=== PATIENT | male | born 1980 | race Caucasian/White ===

== ENCOUNTER 2017-04-23 00:46 | Emergency (ER) | payer SELFPAY ==
[~2017-04-23] VITALS: Ht 157.5 cm; Wt 100.0 kg
[2017-04-23 00:40] VITALS: O2SAT 100
[2017-04-23 00:48] VITALS: BP 156/97; PULSE 114; RESP 18; TEMP 98.7; O2SAT 100
[2017-04-23] MEDS ORDERED: methylPREDNISolone SOD SUCC 125 MG/2 ML VIAL ONE (00:51)
[2017-04-23] MEDS ORDERED: SODIUM CHLORIDE 0.9% FLUSH 10 ML FLUSH IV FLUSH PRN (01:00)
[2017-04-23] MEDS ORDERED: methylPREDNISolone SOD SUCC 125 MG/2 ML VIAL IM ONE (01:00)
[2017-04-23] MEDS ORDERED: ZOLO100T PO (01:00)
[2017-04-23] MEDS ORDERED: FAMOTIDINE 20 MG/2 ML VIAL IV PUSH ONE (01:00)
[2017-04-23] MEDS ORDERED: KETOROLAC TROMETHAMINE 30 MG/ML (IVP) VIAL IV PUSH ONE (01:15)
--- NOTE | 2017-04-23 02:19 | PD ---
HPI Chief Complaint: Allergic/Adverse Reaction Time Seen by Provider: 00:54 Travel History International Travel<30 days: No Contact w/Intl Traveler<30days: No Traveled to known affect area: No History of Present Illness HPI 37-year-old male complains of scratchy throat, shortness of breath, pain and swelling of the extremity. Patient was eating dinner and ate some shellfish and shrimp. Patient started having swelling of extremity, painful extremity, scratchy throat and shortness of breath. Patient took Benadryl 50 mg by mouth. EMS was called. Patient was given Benadryl 50 mg IV, epinephrine 0.3 mg subcutaneous, albuterol treatment 2 and Zofran 4 mg IV. Patient was transported to the ED for evaluation. PFSH Past Medical History Depression: Yes Schizophrenia: Yes (SCHIZO AFFECTIVE) Tetanus Vaccination: < 5 Years Influenza Vaccination: No Past Surgical History Surgical History: No Previous Surgery Social History Alcohol Use: Yes Tobacco Use: Yes Substance Use: No Allergies-Medications (Allergen,Severity, Reaction): Coded Allergies: Bee Sting (Verified Allergy, Severe, 04/23/17) Penicillin (Verified Allergy, Intermediate, 04/23/17) Reported Meds & Prescriptions Reported Meds & Active Scripts Active Reported Zoloft (Sertraline HCl) 100 Mg Tab 100 Mg PO DAILY Review of Systems General / Constitutional: No: Fever Eyes: No: Visual changes HENT: No: Headaches Cardiovascular: No: Chest Pain or Discomfort Respiratory: Positive: Shortness of Breath Gastrointestinal: No: Abdominal Pain Genitourinary: No: Dysuria Musculoskeletal: Positive: Edema, Pain Skin: No Rash Neurologic: No: Weakness Psychiatric: No: Depression Endocrine: No: Polydipsia Hematologic/Lymphatic: No: Easy Bruising Physical Exam Narrative GENERAL: Well-nourished, well-developed patient. SKIN: Focused skin assessment warm/dry. Mild reddish rash on the extremity and upper chest. HEAD: Normocephalic. EYES: No scleral icterus. No injection or drainage. Patient has mild edema on the uvula and soft palate area. NECK: Supple, trachea midline. No JVD or lymphadenopathy. CARDIOVASCULAR: Regular rate and rhythm without murmurs, gallops, or rubs. RESPIRATORY: Breath sounds equal bilaterally. No accessory muscle use. No stridor or wheezes. GASTROINTESTINAL: Abdomen soft, non-tender, nondistended. MUSCULOSKELETAL: Mild edema on bilateral hands. BACK: Nontender without obvious deformity. No CVA tenderness. Neurologic exam normal. Data Data Last Documented VS Vital Signs Date Time Temp Pulse Resp B/P Pulse Ox O2 Delivery O2 Flow Rate FiO2 04/23/17 00:54 112 25 100 Nasal Cannula 2 04/23/17 00:48 98.7 156/97 Orders Methylprednisolone So Succ Inj (Solumedr (04/23/17 00:51) Ecg Monitoring (04/23/17 00:54) Iv Access Insert/Monitor (04/23/17 00:54) Oximetry (04/23/17 00:54) Methylprednisolone So Succ Inj (Solumedr (04/23/17 01:00) Famotidine Inj (Pepcid Inj) (04/23/17 01:00) Sodium Chloride 0.9% Flush (Ns Flush) (04/23/17 01:00) Ketorolac Inj (Toradol Inj) (04/23/17 01:15) MDM Medical Decision Making Medical Screen Exam Complete: Yes Emergency Medical Condition: Yes Differential Diagnosis Differential diagnosis including allergic reaction, anaphylactoid reaction. Narrative Course 37-year-old male with reddish rash, throat edema, shortness of breath, swelling extremity after eating seafood. Patient received Benadryl, epinephrine, albuterol treatment prior to arrival. Solu-Medrol 125 mg IV given. Pepcid 20 mg IV given. Patient observed in ED with cardiac monitoring and pulse oximetry. 3:09 AM. No edema or the throat. No stridor or wheezing. Patient still has some mild swelling of the hands. Diagnosis Primary Impression: Anaphylactoid reaction Qualified Code: T78.2XXA - Anaphylactoid reaction, initial encounter Patient Instructions: General Instructions Additional Instructions: Take medications as directed. Follow-up with personal physician. Return immediately if shortness of breath or worsening condition. Med/Other Pt SpecificInfo: Prescription(s) given Scripts Ranitidine (Zantac)300 Mg Tha834 Mg PO DAILY #10 TAB Ref 0 Prov:Tyler Bledsoe MD 04/23/17 Cetirizine HCl (Zyrtec)10 Mg Tablet1 Tab PO DAILY #10 Prov:Tyler Bledsoe MD 04/23/17 Prednisone 20 Mg Tab20 Mg PO BID #10 TAB Prov:Tyler Bledsoe MD 04/23/17 Disposition: 01 DISCHARGE HOME Condition: Stable Tyler Bledsoe MD Apr 23, 2017 02:19
[2017-04-23] MEDS ORDERED: CETI-1 PO (03:10)
[2017-04-23] MEDS ORDERED: ZANT300T PO (03:10)
[2017-04-23] MEDS ORDERED: PRED20 PO (03:10)
[2017-04-23 05:26] VITALS: BP 127/76; PULSE 97; RESP 18; O2SAT 100; O2SAT 98
[2017-04-23] MEDS ORDERED: SODIUM CHLOR 0.9% 1000 ML INJ 1,000 ML IV SCH (06:00)
[2017-04-23] MEDS ORDERED: ONDANSETRON HCL 4 MG/2 ML VIAL IV PUSH ONE (06:15)
[2017-04-23] MEDS ORDERED: MORPHINE SULFATE 4 MG/ML INJ IV PUSH ONE (06:15)
--- NOTE | 2017-04-23 06:27 | RADRPT ---
EXAM DATE/TIME: 04/23/2017 06:08 [facility] COMPARISON: No previous studies available for comparison. INDICATIONS : Short of breath, possible allergic reaction. MEDICAL HISTORY : None. SURGICAL HISTORY : None. ENCOUNTER: Initial ACUITY: 1 day PAIN SCORE: 0/10 LOCATION: Bilateral chest FINDINGS: A single view of the chest demonstrates the lungs to be symmetrically aerated without evidence of mas s, infiltrate or effusion. The cardiomediastinal contours are unremarkable. Osseous structures are intact. CONCLUSION: No acute disease. Ryan Valdes MD on April 23, 2017 at 6:26 Board Certified Radiologist. This report was verified electronically.
[2017-04-23 06:32] LABS: AUTOMATED NEUTROPHIL # 8.9 TH/MM3 (1.8-7.7); BASOPHIL # 0.1 TH/MM3 (0-0.2); BASOPHIL % 0.9 % (0.0-2.0); EOSINOPHIL % 0.2 % (0.0-4.0); HEMATOCRIT 35.5 % (39.0-51.0); HEMO FLAGS DIFF FINAL; LYMPH % 19.8 % (9.0-44.0); LYMPHOCYTE # 2.8 TH/MM3 (1.0-4.8); MEAN CELL VOLUME 86.8 FL (80.0-100.0); MEAN CORPUSCULAR HEMOGLOBIN 29.9 PG (27.0-34.0); MEAN CORPUSCULAR HGB CONC 34.5 % (32.0-36.0); MONO % 15.2 % (0.0-8.0); NEUT % 63.9 % (16.0-70.0); PLATELET COUNT 267 TH/MM3 (150-450); RED BLOOD COUNT 4.09 MIL/MM3 (4.50-5.90); RED CELL DISTRIBUTION WIDTH 14.1 % (11.6-17.2); WHITE BLOOD COUNT 13.9 TH/MM3 (4.0-11.0)
[2017-04-23 06:57] LABS: ALT (GPT) 30 U/L (12-78); ANION GAP 14 MEQ/L (5-15); AST (GOT) 26 U/L (15-37); BICARBONATE 20.9 MEQ/L (21.0-32.0); BLOOD UREA NITROGEN 9 MG/DL (7-18); CHLORIDE 104 MEQ/L (98-107); GLOMERULAR FILTRATION RATE 94 ML/MIN (>89); POTASSIUM 4.1 MEQ/L (3.5-5.1); SODIUM (NA) 139 MEQ/L (136-145)
[2017-04-23 06:59] LABS: ALKALINE PHOSPHATASE 73 U/L (45-117); CREATINE KINASE 408 U/L (39-308); TOTAL BILIRUBIN ADULT 0.7 MG/DL (0.2-1.0)
[2017-04-23 07:00] VITALS: BP 117/71; PULSE 90; RESP 18; O2SAT 98
[2017-04-23] MEDS ORDERED: LORazepam 2 MG/ML VIAL IV PUSH ONE (07:00)
[2017-04-23 07:02] LABS: APTT (PATIENT) 29.7 SEC (24.3-30.1); PROTHROMBIN TIME - PATIENT 10.5 SEC (9.8-11.6)
[2017-04-23 07:19] LABS: CKMB 4.9 NG/ML (0.5-3.6)
[2017-04-23] MEDS ORDERED: EPIP0.3I IM ×2 (09:35→09:54)
--- NOTE | 2017-04-23 09:35 | PD ---
Data Data Last Documented VS Vital Signs Date Time Temp Pulse Resp B/P Pulse Ox O2 Delivery O2 Flow Rate FiO2 04/23/17 07:05 18 04/23/17 05:26 97 127/76 98 Room Air 04/23/17 00:54 2 04/23/17 00:48 98.7 Orders Methylprednisolone So Succ Inj (Solumedr (04/23/17 00:51) Ecg Monitoring (04/23/17 00:54) Iv Access Insert/Monitor (04/23/17 00:54) Oximetry (04/23/17 00:54) Methylprednisolone So Succ Inj (Solumedr (04/23/17 01:00) Famotidine Inj (Pepcid Inj) (04/23/17 01:00) Sodium Chloride 0.9% Flush (Ns Flush) (04/23/17 01:00) Ketorolac Inj (Toradol Inj) (04/23/17 01:15) Complete Blood Count With Diff (04/23/17 05:49) Comprehensive Metabolic Panel (04/23/17 05:49) Creatine Kinase (Cpk) (04/23/17 05:49) Prothrombin Time / Inr (Pt) (04/23/17 05:49) Act Partial Throm Time (Ptt) (04/23/17 05:49) Chest, Single Ap (04/23/17 05:49) Sodium Chlor 0.9% 1000 Ml Inj (Ns 1000 M (04/23/17 06:00) Morphine Inj (Morphine Inj) (04/23/17 06:15) Ondansetron Inj (Zofran Inj) (04/23/17 06:15) Lorazepam Inj (Ativan Inj) (04/23/17 07:00) CKMB (04/23/17 06:05) CKMB% (04/23/17 06:05) Labs Laboratory Tests Test 04/23/17 06:05 White Blood Count 13.9 TH/MM3 Red Blood Count 4.09 MIL/MM3 Hemoglobin 12.2 GM/DL Hematocrit 35.5 % Mean Corpuscular Volume 86.8 FL Mean Corpuscular Hemoglobin 29.9 PG Mean Corpuscular Hemoglobin 34.5 % Concent Red Cell Distribution Width 14.1 % Platelet Count 267 TH/MM3 Mean Platelet Volume 7.8 FL Neutrophils (%) (Auto) 63.9 % Lymphocytes (%) (Auto) 19.8 % Monocytes (%) (Auto) 15.2 % Eosinophils (%) (Auto) 0.2 % Basophils (%) (Auto) 0.9 % Neutrophils # (Auto) 8.9 TH/MM3 Lymphocytes # (Auto) 2.8 TH/MM3 Monocytes # (Auto) 2.1 TH/MM3 Eosinophils # (Auto) 0.0 TH/MM3 Basophils # (Auto) 0.1 TH/MM3 CBC Comment DIFF FINAL Differential Comment Prothrombin Time 10.5 SEC Prothromb Time International 1.0 RATIO Ratio Activated Partial 29.7 SEC Thromboplast Time Sodium Level 139 MEQ/L Potassium Level 4.1 MEQ/L Chloride Level 104 MEQ/L Carbon Dioxide Level 20.9 MEQ/L Anion Gap 14 MEQ/L Blood Urea Nitrogen 9 MG/DL Creatinine 0.90 MG/DL Estimat Glomerular Filtration 94 ML/MIN Rate Random Glucose 57 MG/DL Calcium Level 8.4 MG/DL Total Bilirubin 0.7 MG/DL Aspartate Amino Transf 26 U/L (AST/SGOT) Alanine Aminotransferase 30 U/L (ALT/SGPT) Alkaline Phosphatase 73 U/L Total Creatine Kinase 408 U/L Creatine Kinase MB 4.9 NG/ML Creatine Kinase MB % 1.2 % Total Protein 6.5 GM/DL Albumin 3.5 GM/DL [facility] Supervised Visit with BRENT: Yes Interpretation(s) LABS: CBC remarkable for mild leukocytosis, mild anemia. CMP unremarkable Total CK 408 Chest x-ray negative Narrative Course 37-year-old male with apparent allergic reaction. He was observed for 9 hours in the evening. They're in a discharge earlier but he developed some tenderness and swelling in his hands and arms. It seemed to be related to hives or edema. He is continuing to be monitored and labs are drawn. He is now improving. We'll continue steroids, antihistamines, prescription for EpiPen , and outpatient follow-up. Will return for any worsening symptoms. Diagnosis Primary Impression: Anaphylactoid reaction Qualified Code: T78.2XXA - Anaphylactoid reaction, initial encounter Patient Instructions: General Instructions, General Allergic Reaction (ED) Departure Forms: Tests/Procedures Additional Instruction: Take medications as directed. Follow-up with personal physician. Return immediately if shortness of breath or worsening condition. Scripts Epinephrine Inj (Epipen 2-Rodrigo Inj)0.3 Mg/0.3 Ml Pfpen0.3 Mg IM ONCE PRN ( ALLERGIC REACTION) #1 PACK Ref 0 Prov:Tino Lainez MD 04/23/17 Ranitidine (Zantac)300 Mg Gxs051 Mg PO DAILY #10 TAB Ref 0 Prov:Tyler Bledsoe MD 04/23/17 Cetirizine HCl (Zyrtec)10 Mg Tablet1 Tab PO DAILY #10 Prov:Tyler Bledsoe MD 04/23/17 Prednisone 20 Mg Tab20 Mg PO BID #10 TAB Prov:Tyler Bledsoe MD 04/23/17 Disposition: 01 DISCHARGE HOME Condition: Stable Tino Lainez MD Apr 23, 2017 09:35
[2017-04-23 10:00] VITALS: BP 124/70; PULSE 87; RESP 18; O2SAT 99
== END 2017-04-23 10:34 | disposition home or self-care (01) ==
LOC: NEPC 00:46
DX: T78.02XA Anaphylactic reaction due to shellfish (crustaceans), initial encounter (principal)
CPT/HCPCS: 71010; 80053; 82550; 82552; 85025; 85610; 85730; 96361; 96374; 96375; 99284; J1885; J2060; J2270; J2405; J2930; J7030

== ENCOUNTER 2017-05-08 00:50 | Emergency (ER) | payer OTHER ==
[~2017-05-08] VITALS: Ht 180.3 cm; Wt 69.0 kg
[~2017-05-08 00:50] MED LIST: CETI-1 PO; EPIP0.3I IM; PRED20 PO; ZANT300T PO; ZOLO100T PO
[2017-05-08 00:53] VITALS: BP 136/76; PULSE 106; RESP 16; TEMP 98.6; O2SAT 98
[2017-05-08 01:24] VITALS: BP 138/74; PULSE 97; RESP 20; TEMP 98.2; O2SAT 100
[2017-05-08] MEDS ORDERED: IBUPROFEN 600 MG TAB PO ONE (01:30)
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
== END 2017-05-08 06:09 | disposition home or self-care (01) ==
LOC: NEPE 00:50
DX: S93.401A Sprain of unspecified ligament of right ankle, initial encounter (principal); V03.90XA Pedestrian on foot injured in collision with car, pick-up truck or van, unspecified whether traffic or nontraffic accident, initial encounter; Y92.414 Local residential or business street as the place of occurrence of the external cause; F17.290 Nicotine dependence, other tobacco product, uncomplicated; F10.10 Alcohol abuse, uncomplicated
CPT/HCPCS: 70450; 71010; 72125; 72170; 73564; 73610; 99285

== ENCOUNTER 2017-05-19 13:14 | Emergency (ER) | payer OTHER ==
[~2017-05-19] VITALS: Ht 188 cm; Wt 100.0 kg
[2017-05-19 14:17] VITALS: BP 125/68; PULSE 90; RESP 20; TEMP 98; O2SAT 99
[2017-05-19] MEDS ORDERED: TETANUS/DIPHTHERIA TOXOID ADULT 0.5 ML VIAL IM ONE (16:00)
[2017-05-19] MEDS ORDERED: LIDOCAINE HCL 1% 50 ML VIAL ONE (16:10)
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
[2017-05-19] MEDS ORDERED: LIDOCAINE HCL 1% 50 ML VIAL INFIL ONE (16:15)
--- NOTE | 2017-05-19 16:47 | PD ---
Physical Exam Date Seen by Provider: May 19, 2017 Time Seen by Provider: 16:40 Narrative I was asked by Dr. Hale 2 para laceration of the patient's right dorsal hand. Please see her documentation for full history and physical. Data Data Last Documented VS Vital Signs Date Time Temp Pulse Resp B/P (MAP) Pulse Ox O2 Delivery O2 Flow Rate FiO2 05/19/17 17:22 05/19/17 14:17 98.0 90 20 99 Room Air Orders Orders Tetanus/Diphtheria Tox Adult (Tetanus/Di (05/19/17 16:00) Lidocaine 1% Inj (50 Ml) (Xylocaine 1% I (05/19/17 16:15) Lidocaine 1% Inj (50 Ml) (Xylocaine 1% I (05/19/17 16:10) MDM Medical Record Reviewed: Yes Supervised Visit with BRENT: No Procedures Procedure Narrative LACERATION LOCATION: Right dorsal hand LENGTH: 6 cm NUMBER OF STITCHES/SCARLET: 6 simple interrupted sutures REPAIR: The area of the laceration was prepped with Betadine and sterilely draped. The laceration was infiltrated with 1% lidocaine. The wound was copiously irrigated and explored without evidence of foreign body, tendon injury or neurovascular injury. The wound was closed using 4-0 prolene. This was a single layer repair. A sterile dressing was applied. The patient was advised to keep the dressing clean and dry. Patient tolerated the procedure well. Diagnosis Primary Impression: Hand laceration Qualified Codes: S61.411A - Laceration without foreign body of right hand, initial encounter Patient Instructions: General Instructions Additional Instruction: If you develop fevers, redness, swelling, or discharge from your wound return to the emergency room. Keep your wound dry for 24 hours. After that time, wash gently with warm soap and water. Do not use peroxide. Do not soak in baths or go swimming. Have your sutures removed in 7 days. Disposition: 01 DISCHARGE HOME Condition: Stable Esme Nuñez May 19, 2017 16:46
== END 2017-05-19 17:23 | disposition home or self-care (01) ==
LOC: NEPD 13:14
DX: S61.411A Laceration without foreign body of right hand, initial encounter (principal); Z23 Encounter for immunization; Z86.59 Personal history of other mental and behavioral disorders; W45.8XXA Other foreign body or object entering through skin, initial encounter
CPT/HCPCS: 12002; 90471; 90714

== ENCOUNTER 2017-05-23 09:55 | Inpatient (IN) | payer OTHER ==
[~2017-05-23] VITALS: Ht 188 cm; Wt 95.1 kg
[2017-05-23 09:57] VITALS: BP 146/83; PULSE 97; RESP 12; TEMP 98.6; O2SAT 97
[2017-05-23] MEDS ORDERED: CLINDAMYCIN INJ 900 MG in SODIUM CHLORIDE 0.9% INJ 100 ML IV STA (10:39)
--- NOTE | 2017-05-23 10:43 | PD ---
HPI Chief Complaint: Skin Problem Time Seen by Provider: 10:39 Travel History International Travel<30 days: No Contact w/Intl Traveler<30days: No Traveled to known affect area: No History of Present Illness HPI 37-year-old male patient seen 2 days ago for a wound to the right hand which was sutured, presents back to the ER today for increased redness, swelling, drainage, and signs of infection. He states he has been having chills, having some coughing as well. He denies other issues. Modifying Factors: None Associated Signs & Symptoms: Right hand infection, chills, coughing Risk Factors: After recent suturing 2-3 days ago PFSH Past Medical History Hx Anticoagulant Therapy: No Depression: Yes Cardiovascular Problems: No Chemotherapy: No Cerebrovascular Accident: No Diabetes: No Respiratory: No Schizophrenia: Yes (SCHIZO AFFECTIVE) Past Surgical History Surgical History: No Previous Surgery Social History Alcohol Use: Yes (denies daily use states he drinks a couple times a week ) Tobacco Use: No (1/2 pack a day ) Substance Use: No Allergies-Medications (Allergen,Severity, Reaction): Coded Allergies: amoxicillin (Unverified Allergy, Severe, Anaphylaxis, 05/23/17) PT states he has an anaphylactic rx when taking amoxicillin. bee venom protein (honey bee) (Unverified Allergy, Severe, 05/23/17) penicillin G (Unverified Allergy, Intermediate, 05/23/17) Reported Meds & Prescriptions Reported Meds & Active Scripts Active Epipen 2-Rodrigo Inj (Epinephrine) 0.3 Mg/0.3 Ml Pfpen 0.3 Mg IM ONCE PRN Zantac (Ranitidine HCl) 300 Mg Tab 300 Mg PO DAILY Zyrtec (Cetirizine HCl) 10 Mg Tablet 1 Tab PO DAILY Prednisone 20 Mg Tab 20 Mg PO BID Reported Zoloft (Sertraline HCl) 100 Mg Tab 100 Mg PO DAILY Review of Systems Except as stated in HPI: all other systems reviewed are Neg Physical Exam Narrative GENERAL: Well-developed middle age white male patient currently in mild distress. Awake and oriented 3. SKIN: Focused skin assessment warm/dry. The right hand wound appears with sutures intact, surrounding erythema, small amount of pus like drainage, tender palpation. HEAD: Atraumatic. Normocephalic. EYES: Pupils equal and round. No scleral icterus. No injection or drainage. ENT: No nasal bleeding or discharge. Mucous membranes pink and moist. NECK: Trachea midline. No JVD. CARDIOVASCULAR: Regular rate and rhythm. No murmur appreciated. RESPIRATORY: No accessory muscle use. Clear to auscultation. Breath sounds equal bilaterally. GASTROINTESTINAL: Abdomen soft, non-tender, nondistended. Hepatic and splenic margins not palpable. MUSCULOSKELETAL: No obvious deformities. No clubbing. No cyanosis. No edema. NEUROLOGICAL: Awake and alert. No obvious cranial nerve deficits. Motor grossly within normal limits. Normal speech. PSYCHIATRIC: Appropriate mood and affect; insight and judgment normal. Data Data Last Documented VS Vital Signs Date Time Temp Pulse Resp B/P (MAP) Pulse Ox O2 Delivery O2 Flow Rate FiO2 05/23/17 10:07 91 16 05/23/17 09:57 98.6 146/83 (104) 97 Orders Orders Complete Blood Count With Diff (05/23/17 10:39) Comprehensive Metabolic Panel (05/23/17 10:39) Lactic Acid Sepsis Protocol (05/23/17 10:39) Blood Culture (05/23/17 10:39) Chest, Single Ap (05/23/17 10:39) Blood Glucose (05/23/17 10:39) Ecg Monitoring (05/23/17 10:39) Iv Access Insert/Monitor (05/23/17 10:39) Oximetry (05/23/17 10:39) Oxygen Administration (05/23/17 10:39) Clindamycin Inj (Cleocin Inj) (05/23/17 10:39) Hand, Limited (2vws) (05/23/17 10:39) Consult Hand Surgery (05/23/17 ) Admit Order (Ed Use Only) (05/23/17 12:57) Labs Laboratory Tests Test 05/23/17 11:25 White Blood Count 13.6 TH/MM3 Red Blood Count 4.50 MIL/MM3 Hemoglobin 13.3 GM/DL Hematocrit 41.1 % Mean Corpuscular Volume 91.3 FL Mean Corpuscular Hemoglobin 29.4 PG Mean Corpuscular Hemoglobin Concent 32.3 % Red Cell Distribution Width 16.6 % Platelet Count 333 TH/MM3 Mean Platelet Volume 7.4 FL Neutrophils (%) (Auto) 70.3 % Lymphocytes (%) (Auto) 17.0 % Monocytes (%) (Auto) 11.3 % Eosinophils (%) (Auto) 0.8 % Basophils (%) (Auto) 0.6 % Neutrophils # (Auto) 9.6 TH/MM3 Lymphocytes # (Auto) 2.3 TH/MM3 Monocytes # (Auto) 1.5 TH/MM3 Eosinophils # (Auto) 0.1 TH/MM3 Basophils # (Auto) 0.1 TH/MM3 CBC Comment DIFF FINAL Differential Comment Blood Urea Nitrogen 9 MG/DL Creatinine 0.97 MG/DL Random Glucose 73 MG/DL Total Protein 7.2 GM/DL Albumin 3.5 GM/DL Calcium Level 8.5 MG/DL Alkaline Phosphatase 69 U/L Aspartate Amino Transf (AST/SGOT) 13 U/L Alanine Aminotransferase (ALT/SGPT) 14 U/L Total Bilirubin 0.5 MG/DL Sodium Level 139 MEQ/L Potassium Level 3.9 MEQ/L Chloride Level 105 MEQ/L Carbon Dioxide Level 23.2 MEQ/L Anion Gap 11 MEQ/L Estimat Glomerular Filtration Rate 86 ML/MIN Lactic Acid Level 1.8 mmol/L [facility] Medical Decision Making Medical Screen Exam Complete: Yes Emergency Medical Condition: Yes Medical Record Reviewed: Yes Interpretation(s) Laboratory Tests Test 05/23/17 11:25 White Blood Count 13.6 TH/MM3 (4.0-11.0) Neutrophils (%) (Auto) 70.3 % (16.0-70.0) Monocytes (%) (Auto) 11.3 % (0.0-8.0) Neutrophils # (Auto) 9.6 TH/MM3 (1.8-7.7) Monocytes # (Auto) 1.5 TH/MM3 (0-0.9) Random Glucose 73 MG/DL (74-106) Aspartate Amino Transf (AST/SGOT) 13 U/L (15-37) Estimat Glomerular Filtration Rate 86 ML/MIN (>89) Differential Diagnosis Cellulitis versus healing wound Narrative Course Lab work shows leukocytosis and IV antibiotics were initiated in the ER after cultures are drawn. Case was discussed with hand specialist, , who would like me to continue IV antibiotics, keep the patient nothing by mouth for him to see this afternoon and he would like the patient to be admitted medically. Case was discussed with family practice resident service for admission. Diagnosis Primary Impression: Infected puncture wound of hand Admitting Information Admitting Physician Requests: Admit Momo Muhammad MD May 23, 2017 10:43
--- NOTE | 2017-05-23 11:15 | RADRPT ---
EXAM DATE/TIME: 05/23/2017 11:09 [facility] COMPARISON: CHEST SINGLE AP, May 08, 2017, 1:36. INDICATIONS : Short of breath and productive cough for one week. Patient is a smoker. MEDICAL HISTORY : None. SURGICAL HISTORY : None. ENCOUNTER: Initial ACUITY: 1 week PAIN SCORE: 8/10 LOCATION: Bilateral chest FINDINGS: A single view of the chest demonstrates the lungs to be symmetrically aerated without evidence of mas s, infiltrate or effusion. The cardiomediastinal contours are unremarkable. Osseous structures are intact. CONCLUSION: Normal examination. Roberto Mancilla Jr., MD on May 23, 2017 at 11:13 Board Certified Radiologist. This report was verified electronically.
--- NOTE | 2017-05-23 11:27 | RADRPT ---
EXAM DATE/TIME: 05/23/2017 11:06 [facility] COMPARISON: No previous studies available for comparison. INDICATIONS : Cut hand three days ago and now has redness and swelling in proximal interphalangeal joint of right h and 2nd digit. MEDICAL HISTORY : None. SURGICAL HISTORY : None. ENCOUNTER: Initial ACUITY: 3 days PAIN SCORE: 9/10 LOCATION: Right Hand FINDINGS: Minimal soft tissue swelling at site of laceration without foreign body or bony changes. The joint s paces are maintained. Bony mineralization is normal. CONCLUSION: Negative for foreign body. Pascual Myers MD FACR on May 23, 2017 at 11:25 Board Certified Radiologist. This report was verified electronically.
[2017-05-23 11:53] LABS: AUTOMATED NEUTROPHIL # 9.6 TH/MM3 (1.8-7.7); BASOPHIL # 0.1 TH/MM3 (0-0.2); BASOPHIL % 0.6 % (0.0-2.0); EOSINOPHIL # 0.1 TH/MM3 (0-0.4); EOSINOPHIL % 0.8 % (0.0-4.0); HEMATOCRIT 41.1 % (39.0-51.0); HEMO FLAGS DIFF FINAL; LYMPHOCYTE # 2.3 TH/MM3 (1.0-4.8); MEAN CELL VOLUME 91.3 FL (80.0-100.0); MEAN CORPUSCULAR HEMOGLOBIN 29.4 PG (27.0-34.0); MEAN CORPUSCULAR HGB CONC 32.3 % (32.0-36.0); MONO % 11.3 % (0.0-8.0); NEUT % 70.3 % (16.0-70.0); PLATELET COUNT 333 TH/MM3 (150-450); RED CELL DISTRIBUTION WIDTH 16.6 % (11.6-17.2); WHITE BLOOD COUNT 13.6 TH/MM3 (4.0-11.0)
[2017-05-23 12:13] LABS: ALT (GPT) 14 U/L (12-78); ANION GAP 11 MEQ/L (5-15); AST (GOT) 13 U/L (15-37); BICARBONATE 23.2 MEQ/L (21.0-32.0); BLOOD UREA NITROGEN 9 MG/DL (7-18); CHLORIDE 105 MEQ/L (98-107); GLOMERULAR FILTRATION RATE 86 ML/MIN (>89); POTASSIUM 3.9 MEQ/L (3.5-5.1); SODIUM (NA) 139 MEQ/L (136-145)
[2017-05-23 12:15] LABS: ALKALINE PHOSPHATASE 69 U/L (45-117); TOTAL BILIRUBIN ADULT 0.5 MG/DL (0.2-1.0)
--- NOTE | 2017-05-23 13:36 | HHI.HP ---
HPI Service Family Medicine Primary Care Physician No Primary Care Physician Admission Diagnosis sepsis/hand cellulitis/wound infection Diagnoses: International Travel<30 Days: No Contact w/Intl Traveler<30days: No Known Affected Area: No History of Present Illness Mr. Rutledge is a 37 y/o M with PMHx of schizoaffective disorder presenting with a R hand wound. He was seen in the ED 4 days ago with a superficial laceration of the R hand at the second MTP joint extending down the dorsal aspect of the R hand approximately 3 cm in length. The laceration was closed with 6 interrupted sutures, and he was discharged home. Over the past 3 days his hand has had worsening erythema, edema and has started to have purulent discharge. He also endorses 2 days of anorexia and vomiting with subjective fevers, chills, shortness of breath, and productive cough with yellow sputum. He also has been unable to flex his first 2 fingers since the laceration was sutured. Currently his pain is 9/10 and is sharp in nature radiating up to his mid forearm. ROS as below. (Mateo Grant MD R2) Review of Systems Constitutional: COMPLAINS OF: Fever (subjective ), Chills, Dizziness Eyes: COMPLAINS OF: Blurred vision Ears, nose, mouth, throat: COMPLAINS OF: Running Nose, DENIES: Throat pain Respiratory: COMPLAINS OF: Cough, Sputum production, Shortness of breath Cardiovascular: DENIES: Chest pain, Palpitations Gastrointestinal: COMPLAINS OF: Abdominal pain, Diarrhea, Nausea, Vomiting Genitourinary: DENIES: Dysuria Musculoskeletal: COMPLAINS OF: Muscle aches Integumentary: DENIES: Rash Hematologic/lymphatic: COMPLAINS OF: Lymphadenopathy Neurologic: COMPLAINS OF: Headache Psychiatric: DENIES: Mood changes (Mateo Grant MD R2) Past Family Social History Past Medical History Schizoaffective disorder - off medications for 1 month (Thorizine, Vistaril, Zoloft), seen at [facility] Past Surgical History No Surgical History (Mateo Grant MD R2) Allergies: Coded Allergies: amoxicillin (Unverified Allergy, Severe, Anaphylaxis, 05/23/17) PT states he has an anaphylactic rx when taking amoxicillin. bee venom protein (honey bee) (Unverified Allergy, Severe, 05/23/17) penicillin G (Unverified Allergy, Intermediate, 05/23/17) Family History Father - GERD, for Esophageal Cancer Mother - living, tobacco abuse 2 brothers and 1 sister - all healthy Social History Currently homeless, looking at [place] apartments with roommate for the future. Works as contractor. Pending insurance coverage. Tobacco - 1/2 ppd for 24 years Alcohol - couple times a week, less than a 6 pack, positive history for alcohol withdraw, last drink yesterday, 3 16oz beers Illicit - last used 3 years ago, cocaine (Mateo Grant MD R2) Physical Exam Vital Signs Vital Signs Date Time Temp Pulse Resp B/P (MAP) Pulse Ox O2 Delivery O2 Flow Rate FiO2 05/23/17 10:07 91 16 05/23/17 09:57 98.6 97 12 146/83 (104) 97 Physical Exam GENERAL: Well-nourished, well-developed lying in bed in mild distress watching TV. SKIN: Warm and dry. No rash. RUE: Superficial laceration of the R hand at the second MTP joint extending down the dorsal aspect of the R hand approximately 3 cm in length repaired with 6 interrupted sutures. Surrounding area with erythema and increased warmth. Drainage of purulent fluid draining between interrupted sutures. Moderate edema of the area. Erythema outlined with surgical pen. Patient unable to flex first 3 fingers appropriately due to pain. Sensation intact. Radial pulse 2+. Capillary refill intact. HEENT: Atraumatic, normocephalic with EOMI. PERRLA. Oropharynx clear without erythema or exudate. No rhinorrhea. No JVD, LAD, or thyroid abnormality appreciated. CARDIOVASCULAR: Regular rate and rhythm without obvious murmurs, gallops, or rubs. 2+ pulses in all 4 extremities RESPIRATORY: Bilateral expiratory wheezes with scattered rhonchi. No increased work of breathing. GASTROINTESTINAL: Abdomen soft, non-tender, nondistended with positive bowel sounds. No masses appreciated. MUSCULOSKELETAL: No cyanosis or edema. Strength grossly WNL. Please see as above for right hand. BACK: Nontender without obvious deformity. No CVA tenderness. NEURO/PSYCH: Afocal. Awake, alert, and oriented x3. Normal speech and judgment. Normal interaction with medical staff. Laboratory Laboratory Tests Test 05/23/17 11:25 White Blood Count 13.6 Red Blood Count 4.50 Hemoglobin 13.3 Hematocrit 41.1 Mean Corpuscular Volume 91.3 Mean Corpuscular Hemoglobin 29.4 Mean Corpuscular Hemoglobin Concent 32.3 Red Cell Distribution Width 16.6 Platelet Count 333 Mean Platelet Volume 7.4 Neutrophils (%) (Auto) 70.3 Lymphocytes (%) (Auto) 17.0 Monocytes (%) (Auto) 11.3 Eosinophils (%) (Auto) 0.8 Basophils (%) (Auto) 0.6 Neutrophils # (Auto) 9.6 Lymphocytes # (Auto) 2.3 Monocytes # (Auto) 1.5 Eosinophils # (Auto) 0.1 Basophils # (Auto) 0.1 CBC Comment DIFF FINAL Differential Comment Blood Urea Nitrogen 9 Creatinine 0.97 Random Glucose 73 Total Protein 7.2 Albumin 3.5 Calcium Level 8.5 Alkaline Phosphatase 69 Aspartate Amino Transf (AST/SGOT) 13 Alanine Aminotransferase (ALT/SGPT) 14 Total Bilirubin 0.5 Sodium Level 139 Potassium Level 3.9 Chloride Level 105 Carbon Dioxide Level 23.2 Anion Gap 11 Estimat Glomerular Filtration Rate 86 Lactic Acid Level 1.8 Date/Time Source Procedure Growth Status 05/23/17 11:25 Blood Peripheral Aerobic Blood Culture Pending Received 05/23/17 11:25 Blood Peripheral Anaerobic Blood Culture Pending Received (Mateo Grant MD R2) Result Diagram: 05/23/17 1125 05/23/17 1125 Caprini VTE Risk Assessment Caprini VTE Risk Assessment: Mod/High Risk (score >= 2) Caprini Risk Assessment Model Point Value = 1 Point Value = 2 Point Value = 3 Point Value = 5 Age 41-60 Minor surgery BMI > 25 kg/m2 Swollen legs Varicose veins or History of unexplained or recurrent spontaneous Oral contraceptives or hormone replacement Sepsis (< 1 month) Serious lung disease, including pneumonia (< 1 month) Abnormal pulmonary function Acute myocardial infarction Congestive heart failure (< 1 month) History of inflammatory bowel disease Medical patient at bed rest Age 61-74 Arthroscopic surgery Major open surgery (> 45 min) Laparoscopic surgery (> 45 min) Malignancy Confined to bed (> 72 hours) Immobilizing plaster cast Central venous access Age >= 75 History of VTE Family history of VTE Factor V Leiden Prothrombin [id number] Lupus anticoagulant Anticardiolipin antibodies Elevated serum homocysteine Heparin-induced thrombocytopenia Other congenital or acquired thrombophilia Stroke (< 1 month) Elective arthroplasty Hip, pelvis, or leg fracture Acute spinal cord injury (< 1 month) Prophylaxis Regimen Total Risk Factor Score Risk Level Prophylaxis Regimen 0-1 Low Early ambulation 2 Moderate Order ONE of the following: *Sequential Compression Device (SCD) *Heparin 5000 units SQ BID 3-4 Higher Order ONE of the following medications: *Heparin 5000 units SQ TID *Enoxaparin/Lovenox 40 mg SQ daily (WT < 150 kg, CrCl > 30 mL/min) *Enoxaparin/Lovenox 30 mg SQ daily (WT < 150 kg, CrCl > 10-29 mL/min) *Enoxaparin/Lovenox 30 mg SQ BID (WT < 150 kg, CrCl > 30 mL/min) AND/OR *Sequential Compression Device (SCD) 5 or more Highest Order ONE of the following medications: *Heparin 5000 units SQ TID (Preferred with Epidurals) *Enoxaparin/Lovenox 40 mg SQ daily (WT < 150 kg, CrCl > 30 mL/min) *Enoxaparin/Lovenox 30 mg SQ daily (WT < 150 kg, CrCl > 10-29 mL/min) *Enoxaparin/Lovenox 30 mg SQ BID (WT < 150 kg, CrCl > 30 mL/min) AND *Sequential Compression Device (SCD) (Mateo Grant MD R2) Assessment and Plan Assessment and Plan Mr. Rutledge is a 37 y/o M with PMHx of schizoaffective disorder presenting with a R hand wound presenting with acute cellulitis. Code Status Full Code Discussed Condition With Dr. Muhammad, ER physician Dr. Bowen (Mateo Grant MD R2) Attending Attestation Patient seen and examined. Case reviewed and discussed with the resident team. Agree with plan of care as discussed with me and documented in the resident note. his hand is clearly infected with pus coming out between the sutures. definitely agree with hand surgeon (Nita Anderson MD) Problem List: (1) Infected puncture wound of hand ICD Codes: S61.439A - Puncture wound without foreign body of unspecified hand, initial encounter; L08.9 - Local infection of the skin and subcutaneous tissue, unspecified Status: Acute Plan: Patient presenting with infected laceration of the right hand currently meeting sepsis criteria -Right hand x-ray: Minimal tissue swelling at site of laceration without for body or bony changes. The joint spaces are maintained. Bony mineralization is normal. -CBC: WBC 13.6 with 70.3% neutrophils -Lactic acid: 1.8 -Blood cultures 2 pending -Hand surgery consulted, appreciate recommendations Medications: -Received clindamycin in ER -Vancomycin 1 g twice a day, pharmacy consulted for dosing -[place] when necessary for pain, Toradol when necessary for breakthrough pain -Normal saline at 140 mL per hour (2) Sepsis ICD Codes: A41.9 - Sepsis, unspecified organism Status: Acute Plan: Patient currently meeting sepsis criteria with leukocytosis of 13.6 and tachycardia to 97 bpm with his right hand wound being the source of infection. -Please see plan as above (3) COPD exacerbation ICD Codes: J44.1 - Chronic obstructive pulmonary disease with (acute) exacerbation Status: Acute Plan: Patient with symptoms of COPD exacerbation with positive prolonged smoking history concerning for possible acute on chronic COPD exacerbation -Chest x-ray: Normal examination -Incentive spirometry Medications: -Levaquin 750 mg -DuoNeb's when necessary for shortness of breath (4) Alcohol use ICD Codes: Z78.9 - Other specified health status Status: Acute Plan: Patient with recent alcohol use and prior history of withdrawal -CIWA protocol and placed -Thiamine, Multivitamin, and Folic Acid daily -Urine Drugs Screen: pending (5) Nutrition, metabolism, and development symptoms ICD Codes: R63.8 - Other symptoms and signs concerning food and fluid intake Status: Acute Plan: Diet: Nothing by mouth for possible procedure Fluids: Normal saline at 140 mL per hour Electrolytes: Within normal limits, continue to monitor Prophylaxis: [place] when necessary for pain, Toradol when necessary for breakthrough pain, DuoNeb when necessary for shortness of breath/wheezing, Tylenol when necessary for fever, Per-Colace when necessary for constipation, Zofran when necessary for nausea or vomiting, Imodium as needed for diarrhea, Vistaril as needed for insomnia, Famotidine as needed for reflux (6) Surgical contraindication to deep vein thrombosis (DVT) prophylaxis ICD Codes: Z53.09 - Procedure and treatment not carried out because of other contraindication Status: Acute Plan: Patient likely going for procedure with hand surgery, hold medical prophylaxis SCD/TEDs (Mateo Grant MD R2) Physician Certification 2 Midnight Certification Type: Admission for Inpatient Services Order for Inpatient Services The services are ordered in accordance with Medicare regulations or non- Medicare payer requirements, as applicable. In the case of services not specified as inpatient-only, they are appropriately provided as inpatient services in accordance with the 2-midnight benchmark. Estimated LOS (days): 3 3 days is the estimated time the patient will need to remain in the hospital, assuming treatment plan goals are met and no additional complications. Post-Hospital Plan: Home (Mateo Grant MD R2) Problem Qualifiers (1) Infected puncture wound of hand: Qualified Codes: S61.431D - Puncture wound without foreign body of right hand, subsequent encounter; L08.9 - Local infection of the skin and subcutaneous tissue, unspecified (2) Sepsis: Qualified Codes: A41.9 - Sepsis, unspecified organism Mateo Grant MD R2 May 23, 2017 13:36 Nita Anderson MD May 24, 2017 13:45
[2017-05-23] MEDS ORDERED: Vancomycin Consult Pharmacy 1 EA OTHER SCH (14:00)
[2017-05-23] MEDS ORDERED: ACETAMINOPHEN 325 MG TAB PO PRN (14:00)
[2017-05-23] MEDS ORDERED: SODIUM CHLORIDE 0.9% FLUSH 10 ML FLUSH IV FLUSH PRN (14:00)
[2017-05-23] MEDS ORDERED: NALOXONE HCL 0.4 MG/ML AMP IV PRN (14:00)
[2017-05-23] MEDS ORDERED: RESP: ALBUTEROL 2.5 MG/3 ML NEB (PRN) INH (14:00)
[2017-05-23] MEDS ORDERED: ACETAMINOPHEN/HYDROcodone 325 MG/5 MG TAB PO PRN (14:00)
[2017-05-23] MEDS ORDERED: AZITHROMYCIN INJ 500 MG in SODIUM CHLOR 0.9% 250 ML INJ 250 ML IV SCH (14:00)
[2017-05-23] MEDS ORDERED: DOCUSATE SODIUM 50 MG/SENNA 8.6 MG TAB PO PRN (14:00)
[2017-05-23] MEDS ORDERED: VANCOMYCIN INJ 1,000 MG in SODIUM CHLOR 0.9% 250 ML INJ 250 ML IV SCH (15:00)
[2017-05-23 15:05] VITALS: BP 146/88; PULSE 91; RESP 20; TEMP 98.5; O2SAT 96
[2017-05-23] MEDS ORDERED: HEPARIN SODIUM - SQ 10,000 UNITS/ML VIAL SQ SCH (16:00)
[2017-05-23] MEDS: RESP: ALBUTEROL 2.5 MG/IPRATROPIUM 0.5 MG NEB (SCH) INH ×2 (16:00→20:50)
[2017-05-23] MEDS ORDERED: LORazepam 1 MG TAB PO PRN (16:30)
[2017-05-23] MEDS ORDERED: LORazepam 2 MG TAB PO PRN (16:30)
[2017-05-23] MEDS ORDERED: LORazepam 2 MG/ML VIAL IV PUSH PRN ×4 (16:30)
[2017-05-23] MEDS ORDERED: FLUMAZENIL 0.5 MG/5 ML VIAL IV PUSH PRN (16:30)
[2017-05-23] MEDS: LEVOFLOXACIN 750 MG PREMIX INJ 150 ML IV SCH (16:31)
[2017-05-23] MEDS: SODIUM CHLOR 0.9% 1000 ML INJ 1,000 ML IV SCH ×2 (16:32→20:04)
[2017-05-23] MEDS: ACETAMINOPHEN/HYDROcodone 325 MG/7.5 MG TAB PO PRN ×2 (16:34→22:21)
[2017-05-23] MEDS ORDERED: LOPERAMIDE HCL 2 MG CAP PO PRN (16:45)
[2017-05-23] MEDS ORDERED: FAMOTIDINE 20 MG TAB PO PRN (16:45)
[2017-05-23] MEDS: ONDANSETRON HCL 4 MG/2 ML VIAL IVP PRN (16:46)
[2017-05-23] MEDS: MULTIVITAMINS/MINERALS THERAPEUTIC TAB PO SCH (17:00)
[2017-05-23] MEDS: FOLIC ACID 1 MG TAB PO SCH (17:00)
[2017-05-23] MEDS: THIAMINE HCL 100 MG TAB PO SCH (17:00)
[2017-05-23] MEDS ORDERED: HYDROmorphone HCL PF 1 MG/ML VIAL IV ONE (17:15)
[2017-05-23] MEDS: VANCOMYCIN INJ 1,500 MG in SODIUM CHLORID 0.9% 500 ML INJ 500 ML IV SCH (18:39)
[2017-05-23 20:00] VITALS: BP 139/81; PULSE 94; RESP 20; TEMP 98.7; O2SAT 98
[2017-05-23] MEDS: KETOROLAC TROMETHAMINE 30 MG/ML (IVP) VIAL IVP PRN (20:02)
[2017-05-23] MEDS: SODIUM CHLORIDE 0.9% FLUSH 10 ML FLUSH IV FLUSH SCH (20:04)
[2017-05-23 20:53] VITALS: O2SAT 97
--- NOTE | 2017-05-23 23:58 | MB ---
cc: DEISY HUBER DATE OF CONSULTATION 05/23/17 REASON FOR CONSULTATION Right hand infection. HISTORY OF PRESENT ILLNESS The patient is a 37-year-old left-hand dominant male who presented to the ED with complaints of pain, swelling, redness over the right hand for the past 3-4 days. The patient had laceration of the right hand with a knife about 4 days ago. He was seen at [facility] ER. The patient had wound wash and repair of laceration. He presented today with complaints of worsening pain and swelling and drainage from the region. He was admitted for right hand infection. The patient denies any fevers. Complains of drainage from the region. He also complains of painful range of motion of the fingers. Denies any tingling or numbness. PAST MEDICAL HISTORY Significant for schizoaffective disorder. PHYSICAL EXAMINATION GENERAL: The patient is alert, oriented x3. DIRECTED EXAMINATION: Examination of right hand reveals sutured laceration over the dorsal radial aspect of the index finger metacarpal shaft region extending from the MP joint to the dorsal aspect of the mid index finger metacarpal shaft measuring about 6 cm with sutures in place. Gaping of the wound and drainage noted from the region. There is also evidence of surrounding swelling and erythema. Tenderness noted over the region. Purulent material being expressed on pressure surrounding the laceration site. The patient has full active extension of the MP joint of the index finger with associated pain. He is able to make a fist with terminal degrees of flexion associated with pain involving the index finger. He has intact sensation distally. He has intact distal circulation. IMAGING STUDIES X-rays of the right hand was reviewed shows no evidence of foreign bodies. Soft tissue swelling noted on the dorsal aspect of the index finger metacarpal shaft. LABORATORY DATA His lab work was reviewed. He has a white count of 13.6. ASSESSMENT 37-year-old male with infection of sutured laceration right hand. PLAN Take the patient for emergent exploration, wash and drainage of abscess. The sutures were removed bedside and wound was washed with hydrogen peroxide and material was obtained for culture, sensitivity. Packing of the wound was also carried out. Dry dressing was applied. We will continue with IV antibiotics. The patient is in lot of pain, will take him for wash in a surgical setting. Hand surgery will follow. MD SALINAS Parks /5:24 PM /11:45 PM NEW
[2017-05-24] VITALS (8 sets, daily range): BP systolic 122–132; BP diastolic 67–83; PULSE 69–103; RESP 12–20; TEMP 96.8–98.6; O2SAT 95–99
[2017-05-24] MEDS: KETOROLAC TROMETHAMINE 30 MG/ML (IVP) VIAL IVP PRN ×4 (02:27→23:00)
[2017-05-24] MEDS: SODIUM CHLOR 0.9% 1000 ML INJ 1,000 ML IV SCH ×3 (02:27→17:44)
[2017-05-24] MEDS ORDERED: LACTATED RINGER'S 1000 ML IV PRN (04:00)
[2017-05-24] MEDS: RESP: ALBUTEROL 2.5 MG/IPRATROPIUM 0.5 MG NEB (SCH) INH ×4 (04:00→22:34)
[2017-05-24] MEDS: VANCOMYCIN INJ 1,500 MG in SODIUM CHLORID 0.9% 500 ML INJ 500 ML IV SCH ×2 (05:09→18:13)
[2017-05-24] MEDS: ACETAMINOPHEN/HYDROcodone 325 MG/7.5 MG TAB PO PRN ×4 (05:09→20:55)
[2017-05-24 05:55] LABS: BASOPHIL # 0.1 TH/MM3 (0-0.2); BASOPHIL % 0.6 % (0.0-2.0); EOSINOPHIL # 0.2 TH/MM3 (0-0.4); EOSINOPHIL % 2.5 % (0.0-4.0); HEMO FLAGS DIFF FINAL; LYMPH % 26.7 % (9.0-44.0); LYMPHOCYTE # 2.5 TH/MM3 (1.0-4.8); MEAN CORPUSCULAR HEMOGLOBIN 30.7 PG (27.0-34.0); MEAN CORPUSCULAR HGB CONC 33.4 % (32.0-36.0); MONO % 15.2 % (0.0-8.0); PLATELET COUNT 278 TH/MM3 (150-450); RED BLOOD COUNT 4.24 MIL/MM3 (4.50-5.90); RED CELL DISTRIBUTION WIDTH 16.5 % (11.6-17.2); WHITE BLOOD COUNT 9.2 TH/MM3 (4.0-11.0)
[2017-05-24 06:29] LABS: ALKALINE PHOSPHATASE 65 U/L (45-117); ALT (GPT) 13 U/L (12-78); ANION GAP 9 MEQ/L (5-15); AST (GOT) 13 U/L (15-37); BICARBONATE 24.1 MEQ/L (21.0-32.0); BLOOD UREA NITROGEN 10 MG/DL (7-18); CHLORIDE 105 MEQ/L (98-107); GLOMERULAR FILTRATION RATE 98 ML/MIN (>89); POTASSIUM 3.8 MEQ/L (3.5-5.1); SODIUM (NA) 138 MEQ/L (136-145); TOTAL BILIRUBIN ADULT 0.4 MG/DL (0.2-1.0)
[2017-05-24] MEDS: FOLIC ACID 1 MG TAB PO SCH (07:35)
[2017-05-24] MEDS: THIAMINE HCL 100 MG TAB PO SCH (07:35)
[2017-05-24] MEDS: MULTIVITAMINS/MINERALS THERAPEUTIC TAB PO SCH (07:35)
[2017-05-24] MEDS: SODIUM CHLORIDE 0.9% FLUSH 10 ML FLUSH IV FLUSH SCH ×2 (07:36→21:00)
[2017-05-24] MEDS: ONDANSETRON HCL 4 MG/2 ML VIAL IVP PRN ×2 (07:58→19:57)
--- NOTE | 2017-05-24 09:26 | HHI.HP ---
[facility] Family Medicine Primary Care Physician No Primary Care Physician Admission Diagnosis sepsis/hand cellulitis/wound infection Diagnoses: (1) Infected puncture wound of hand Diagnosis: Principal (2) Sepsis Diagnosis: Principal (3) COPD exacerbation Diagnosis: Principal (4) Alcohol use Diagnosis: Principal (5) Nutrition, metabolism, and development symptoms Diagnosis: Principal (6) Surgical contraindication to deep vein thrombosis (DVT) prophylaxis Diagnosis: Principal International Travel<30 Days: No Contact w/Intl Traveler<30days: No Known Affected Area: No History of Present Illness Mr. Rutledge is a 37 y/o M with PMHx of schizoaffective disorder presenting with a R hand wound. He was seen in the ED 4 days prior to admission with a superficial laceration of the R hand at the second MTP joint extending down the dorsal aspect of the R hand approximately 3 cm in length. The laceration was closed with 6 interrupted sutures, and he was discharged home. Over the past 3 days his hand has had worsening erythema, edema and has started to have purulent discharge. He also endorses 2 days of anorexia and vomiting with subjective fevers, chills, shortness of breath, and productive cough with yellow sputum. He also had been unable to flex his first 2 fingers since the laceration was sutured. His pain was 9/10 and was sharp in nature radiating up to his mid forearm. he had his sutures loosened and some cleaning and pus removal. He is able to move his hand better today than on admission and is scheduled to go to surgery this afternoon. He denies a strong alcohol history but did test positive for various drugs. He is breathing better today and has less pain in his hand which is less swollen Review of Systems Other Constitutional: COMPLAINS OF: Fever (subjective ), Chills, Dizziness Eyes: COMPLAINS OF: Blurred vision Ears, nose, mouth, throat: COMPLAINS OF: Running Nose, DENIES: Throat pain Respiratory: COMPLAINS OF: Cough, Sputum production, Shortness of breath Cardiovascular: DENIES: Chest pain, Palpitations Gastrointestinal: COMPLAINS OF: Abdominal pain, Diarrhea, Nausea, Vomiting Genitourinary: DENIES: Dysuria Musculoskeletal: COMPLAINS OF: Muscle aches Integumentary: DENIES: Rash Hematologic/lymphatic: COMPLAINS OF: Lymphadenopathy Neurologic: COMPLAINS OF: Headache Psychiatric: DENIES: Mood changes Past Family Social History Past Medical History Schizoaffective disorder - off medications for 1 month (Thorazine, Vistaril, Zoloft), seen at [facility] Past Surgical History No Surgical History Allergies: Coded Allergies: amoxicillin (Unverified Allergy, Severe, Anaphylaxis, 05/23/17) PT states he has an anaphylactic rx when taking amoxicillin. bee venom protein (honey bee) (Unverified Allergy, Severe, 05/23/17) penicillin G (Unverified Allergy, Intermediate, 05/23/17) Family History Father - GERD, for Esophageal Cancer Mother - living, tobacco abuse 2 brothers and 1 sister - all healthy Social History Currently homeless, looking at [facility] apartments with roommate for the future. Works as contractor. Pending insurance coverage. Tobacco - 1/2 ppd for 24 years Alcohol - couple times a week, less than a 6 pack, positive history for alcohol withdraw, last drink yesterday, 3 16oz beers is what he said in the ED but today denied more than a few drinks per week Illicit - last used 3 years ago, cocaine Physical Exam Vital Signs Vital Signs Date Time Temp Pulse Resp B/P (MAP) Pulse Ox O2 Delivery O2 Flow Rate FiO2 05/24/17 08:00 97.8 79 18 127/79 (95) 99 05/24/17 07:45 98 05/24/17 06:38 20 05/24/17 03:30 20 05/24/17 00:00 97.9 83 18 127/72 (90) 97 05/23/17 20:53 97 05/23/17 20:00 98.7 94 20 139/81 (100) 98 05/23/17 15:07 100 Room Air 05/23/17 15:05 98.5 91 20 146/88 (107) 96 05/23/17 10:07 91 16 05/23/17 09:57 98.6 97 12 146/83 (104) 97 Physical Exam GENERAL: Well-nourished, well-developed lying in bed in no distress watching TV. SKIN: Warm and dry. No rash. RUE: Superficial laceration of the R hand at the second MTP joint extending down the dorsal aspect of the R hand approximately 3 cm in length repaired with 6 interrupted sutures initially. Surrounding area with erythema and increased warmth. Drainage of purulent fluid draining between interrupted sutures. Moderate edema of the area. Erythema outlined with surgical pen. Patient unable to flex first 3 fingers appropriately due to pain. Sensation intact. Radial pulse 2+. Capillary refill intact. all this was initial exam. today his hand is bandaged but he has less edema and can move his hand better HEENT: Atraumatic, normocephalic with EOMI. PERRLA. Oropharynx clear without erythema or exudate. No rhinorrhea. No JVD, LAD, or thyroid abnormality appreciated. CARDIOVASCULAR: Regular rate and rhythm without obvious murmurs, gallops, or rubs. 2+ pulses in all 4 extremities RESPIRATORY: Bilateral expiratory wheezes with scattered rhonchi. No increased work of breathing. better lung exam today compared to yesterday GASTROINTESTINAL: Abdomen soft, non-tender, nondistended with positive bowel sounds. No masses appreciated. MUSCULOSKELETAL: No cyanosis or edema. Strength grossly WNL. Please see as above for right hand. BACK: Nontender without obvious deformity. No CVA tenderness. NEURO/PSYCH: Afocal. Awake, alert, and oriented x3. Normal speech and judgment. Normal interaction with medical staff. Laboratory Laboratory Tests Test 05/23/17 11:25 05/23/17 22:00 05/24/17 05:06 White Blood Count 13.6 9.2 Red Blood Count 4.50 4.24 Hemoglobin 13.3 13.0 Hematocrit 41.1 39.0 Mean Corpuscular Volume 91.3 92.0 Mean Corpuscular Hemoglobin 29.4 30.7 Mean Corpuscular Hemoglobin Concent 32.3 33.4 Red Cell Distribution Width 16.6 16.5 Platelet Count 333 278 Mean Platelet Volume 7.4 8.1 Neutrophils (%) (Auto) 70.3 55.0 Lymphocytes (%) (Auto) 17.0 26.7 Monocytes (%) (Auto) 11.3 15.2 Eosinophils (%) (Auto) 0.8 2.5 Basophils (%) (Auto) 0.6 0.6 Neutrophils # (Auto) 9.6 5.0 Lymphocytes # (Auto) 2.3 2.5 Monocytes # (Auto) 1.5 1.4 Eosinophils # (Auto) 0.1 0.2 Basophils # (Auto) 0.1 0.1 CBC Comment DIFF FINAL DIFF FINAL Differential Comment Blood Urea Nitrogen 9 10 Creatinine 0.97 0.87 Random Glucose 73 87 Total Protein 7.2 6.1 Albumin 3.5 2.8 Calcium Level 8.5 8.5 Alkaline Phosphatase 69 65 Aspartate Amino Transf (AST/SGOT) 13 13 Alanine Aminotransferase (ALT/SGPT) 14 13 Total Bilirubin 0.5 0.4 Sodium Level 139 138 Potassium Level 3.9 3.8 Chloride Level 105 105 Carbon Dioxide Level 23.2 24.1 Anion Gap 11 9 Estimat Glomerular Filtration Rate 86 98 Lactic Acid Level 1.8 Ethyl Alcohol Level 78 Urine Opiates Screen POS Urine Barbiturates Screen NEG Urine Amphetamines Screen NEG Urine Benzodiazepines Screen NEG Urine Cocaine Screen POS Urine Cannabinoids Screen NEG Date/Time Source Procedure Growth Status 05/23/17 11:25 Blood Peripheral Aerobic Blood Culture Pending Received 05/23/17 11:25 Blood Peripheral Anaerobic Blood Culture Pending Received 05/23/17 17:25 Wound Hand Gram Stain Pending Received 05/23/17 17:25 Wound Hand Wound Culture Pending Received Result Diagram: 05/24/17 0506 05/24/17 0506 Septic Shock Reassessment Heart: Regular rate and rhythm Lungs: Clear Skin: Warm, Dry Caprini VTE Risk Assessment Caprini VTE Risk Assessment: Mod/High Risk (score >= 2) Caprini Risk Assessment Model Point Value = 1 Point Value = 2 Point Value = 3 Point Value = 5 Age 41-60 Minor surgery BMI > 25 kg/m2 Swollen legs Varicose veins or History of unexplained or recurrent spontaneous Oral contraceptives or hormone replacement Sepsis (< 1 month) Serious lung disease, including pneumonia (< 1 month) Abnormal pulmonary function Acute myocardial infarction Congestive heart failure (< 1 month) History of inflammatory bowel disease Medical patient at bed rest Age 61-74 Arthroscopic surgery Major open surgery (> 45 min) Laparoscopic surgery (> 45 min) Malignancy Confined to bed (> 72 hours) Immobilizing plaster cast Central venous access Age >= 75 History of VTE Family history of VTE Factor V Leiden Prothrombin [id number] Lupus anticoagulant Anticardiolipin antibodies Elevated serum homocysteine Heparin-induced thrombocytopenia Other congenital or acquired thrombophilia Stroke (< 1 month) Elective arthroplasty Hip, pelvis, or leg fracture Acute spinal cord injury (< 1 month) Prophylaxis Regimen Total Risk Factor Score Risk Level Prophylaxis Regimen 0-1 Low Early ambulation 2 Moderate Order ONE of the following: *Sequential Compression Device (SCD) *Heparin 5000 units SQ BID 3-4 Higher Order ONE of the following medications: *Heparin 5000 units SQ TID *Enoxaparin/Lovenox 40 mg SQ daily (WT < 150 kg, CrCl > 30 mL/min) *Enoxaparin/Lovenox 30 mg SQ daily (WT < 150 kg, CrCl > 10-29 mL/min) *Enoxaparin/Lovenox 30 mg SQ BID (WT < 150 kg, CrCl > 30 mL/min) AND/OR *Sequential Compression Device (SCD) 5 or more Highest Order ONE of the following medications: *Heparin 5000 units SQ TID (Preferred with Epidurals) *Enoxaparin/Lovenox 40 mg SQ daily (WT < 150 kg, CrCl > 30 mL/min) *Enoxaparin/Lovenox 30 mg SQ daily (WT < 150 kg, CrCl > 10-29 mL/min) *Enoxaparin/Lovenox 30 mg SQ BID (WT < 150 kg, CrCl > 30 mL/min) AND *Sequential Compression Device (SCD) Assessment and Plan Assessment and Plan Mr. Rutledge is a 37 y/o M with PMHx of schizoaffective disorder presenting with a R hand wound presenting with acute cellulitis. Problem List: (1) Infected puncture wound of hand ICD Codes: S61.439A - Puncture wound without foreign body of unspecified hand, initial encounter; L08.9 - Local infection of the skin and subcutaneous tissue, unspecified Status: Acute Plan: Patient presenting with infected laceration of the right hand meeting sepsis criteria initially, improved today -Right hand x-ray: Minimal tissue swelling at site of laceration without for body or bony changes. The joint spaces are maintained. Bony mineralization is normal. -CBC: WBC 13.6 with 70.3% neutrophils -Lactic acid: 1.8 -Blood cultures 2 pending -Hand surgery consulted, appreciate recommendations. will have surgery today. drainage is tsai to infected wounds and he is improving already with drainage last night Medications: -Received clindamycin in ER -Vancomycin 1 g twice a day, pharmacy consulted for dosing -[place] when necessary for pain, Toradol when necessary for breakthrough pain -Normal saline at 140 mL per hour (2) Sepsis ICD Codes: A41.9 - Sepsis, unspecified organism Status: Acute Plan: Patient currently meeting sepsis criteria with leukocytosis of 13.6 and tachycardia to 97 bpm with his right hand wound being the source of infection. -Please see plan as above (3) COPD exacerbation ICD Codes: J44.1 - Chronic obstructive pulmonary disease with (acute) exacerbation Status: Acute Plan: Patient with symptoms of COPD exacerbation with positive prolonged smoking history concerning for possible acute on chronic COPD exacerbation he is improved overnight -Chest x-ray: Normal examination -Incentive spirometry Medications: -Levaquin 750 mg -DuoNeb's when necessary for shortness of breath (4) Alcohol use ICD Codes: Z78.9 - Other specified health status Status: Acute Plan: Patient with recent alcohol use and prior history of withdrawal -[facility] protocol placed -Thiamine, Multivitamin, and Folic Acid daily -Urine Drugs Screen: positive can address his substance use over the next few days. he has a history of Psychiatric issues and it is unclear why he is off all his medicines (5) Nutrition, metabolism, and development symptoms ICD Codes: R63.8 - Other symptoms and signs concerning food and fluid intake Status: Acute Plan: Diet: Nothing by mouth for procedure this afternoon Fluids: Normal saline at 140 mL per hour, can heplock once he takes po well Electrolytes: Within normal limits, continue to monitor Prophylaxis: [place] when necessary for pain, Toradol when necessary for breakthrough pain, DuoNeb when necessary for shortness of breath/wheezing, Tylenol when necessary for fever, Per-Colace when necessary for constipation, Zofran when necessary for nausea or vomiting, Imodium as needed for diarrhea, Vistaril as needed for insomnia, Famotidine as needed for reflux (6) Surgical contraindication to deep vein thrombosis (DVT) prophylaxis ICD Codes: Z53.09 - Procedure and treatment not carried out because of other contraindication Status: Acute Plan: Patient likely going for procedure with hand surgery, hold medical prophylaxis SCD/TEDs Physician Certification 2 Midnight Certification Type: Admission for Inpatient Services Order for Inpatient Services The services are ordered in accordance with Medicare regulations or non- Medicare payer requirements, as applicable. In the case of services not specified as inpatient-only, they are appropriately provided as inpatient services in accordance with the 2-midnight benchmark. Estimated LOS (days): 5 5 days is the estimated time the patient will need to remain in the hospital, assuming treatment plan goals are met and no additional complications. Post-Hospital Plan: Not yet determined Problem Qualifiers (1) Infected puncture wound of hand: Qualified Codes: S61.431D - Puncture wound without foreign body of right hand, subsequent encounter; L08.9 - Local infection of the skin and subcutaneous tissue, unspecified (2) Sepsis: Qualified Codes: A41.9 - Sepsis, unspecified organism Nita Anderson MD May 24, 2017 09:26
[2017-05-24] MEDS ORDERED: PNEUMOCOCCAL POLYVALENT INJ 25 MCG/0.5 ML SYR IM ONE (10:00)
[2017-05-24] MEDS ORDERED: NEOMYCIN/POLYMYXIN 1 ML G.U. IRRIGANT IRRIGATION ONE (13:25)
[2017-05-24] MEDS ORDERED: PROPOFOL 200 MG/20 ML AMP IV ONE (13:58)
[2017-05-24] MEDS ORDERED: ONDANSETRON HCL 4 MG/2 ML VIAL IV PUSH ONE (13:58)
[2017-05-24] MEDS ORDERED: NEOSTIGMINE 3 MG/3 ML SYR IV ONE (13:58)
[2017-05-24] MEDS ORDERED: LACTATED RINGER'S 1000 ML INJ 1,000 ML IV ONE (13:58)
[2017-05-24] MEDS ORDERED: DO NOT ADM ANY ANTICOAGULANT DRUGS PRN (14:16)
--- NOTE | 2017-05-24 14:16 | PD.OP ---
Operative Report Preoperative Diagnosis: (1) Laceration of right hand with infection Postoperative Diagnosis: (1) Laceration of right hand with infection Procedure: exploration, excisional debridement skin and subcutaneous tissue, arthrotomy Metacarpophalangeal joint right index finger Anesthesia: general Surgeon: Adam Chinchilla Zinc Plate Grainer(s): nasreen Operation and Findings: extensive skin and subcutaneous inflammatory and necrotic tissue right hand index finger MP joint not involved on arthrotomy Adam Chinchilla MD May 24, 2017 14:16
[2017-05-24] MEDS ORDERED: MIDAZOLAM HCL 2 MG/2 ML VIAL ONE (14:27)
[2017-05-24] MEDS ORDERED: *MEPERIDINE 25 MG INJ VIAL PERIprocedural Use ONLY ONE (14:30)
[2017-05-24] MEDS: LEVOFLOXACIN 750 MG PREMIX INJ 150 ML IV SCH (17:08)
[2017-05-25] VITALS (9 sets, daily range): BP systolic 118–143; BP diastolic 64–99; PULSE 78–102; RESP 16–20; TEMP 97.3–98.6; O2SAT 96–100
[2017-05-25] MEDS: MORPHINE SULFATE 4 MG/ML INJ IV PUSH PRN ×2 (00:11→03:53)
[2017-05-25] MEDS: ACETAMINOPHEN/HYDROcodone 325 MG/7.5 MG TAB PO PRN ×2 (01:00→05:36)
[2017-05-25] MEDS: SODIUM CHLOR 0.9% 1000 ML INJ 1,000 ML IV SCH ×5 (03:16→20:08)
[2017-05-25 05:29] LABS: HEMATOCRIT 36.7 % (39.0-51.0); MEAN CORPUSCULAR HEMOGLOBIN 29.9 PG (27.0-34.0); MEAN CORPUSCULAR HGB CONC 32.5 % (32.0-36.0); PLATELET COUNT 278 TH/MM3 (150-450); RED BLOOD COUNT 3.99 MIL/MM3 (4.50-5.90); RED CELL DISTRIBUTION WIDTH 16.5 % (11.6-17.2); REVIEW FLAG FINAL; WHITE BLOOD COUNT 10.5 TH/MM3 (4.0-11.0)
[2017-05-25] MEDS: RESP: ALBUTEROL 2.5 MG/IPRATROPIUM 0.5 MG NEB (SCH) INH ×4 (05:39→20:37)
[2017-05-25 05:45] LABS: BICARBONATE 25.9 MEQ/L (21.0-32.0); POTASSIUM 3.9 MEQ/L (3.5-5.1)
[2017-05-25] MEDS ORDERED: PHARMACY ORDERED LAB ONE (05:45)
[2017-05-25] MEDS: diphenhydrAMINE HCL 50 MG CAP PO PRN ×2 (06:33→23:33)
[2017-05-25] MEDS: VANCOMYCIN INJ 1,500 MG in SODIUM CHLORID 0.9% 500 ML INJ 500 ML IV SCH ×2 (06:33→17:52)
[2017-05-25] MEDS: MULTIVITAMINS/MINERALS THERAPEUTIC TAB PO SCH (08:04)
[2017-05-25] MEDS: THIAMINE HCL 100 MG TAB PO SCH (08:04)
[2017-05-25] MEDS: SODIUM CHLORIDE 0.9% FLUSH 10 ML FLUSH IV FLUSH SCH ×2 (08:04→20:07)
[2017-05-25] MEDS: KETOROLAC TROMETHAMINE 30 MG/ML (IVP) VIAL IVP PRN ×2 (08:04→23:33)
[2017-05-25] MEDS: FOLIC ACID 1 MG TAB PO SCH (08:04)
[2017-05-25] MEDS: ACETAMINOPHEN/HYDROcodone 325 MG/10 MG TAB PO PRN ×4 (10:07→23:33)
--- NOTE | 2017-05-25 10:25 | HHI.FPPN ---
Subjective Remarks Pt seen and examined bedside this AM. Patient continues to complain of throbbing hand pain since the surgical procedure yesterday. Patient states he could not sleep last night because the pain was so bad. Patient states the pain is on the hands and also the pain shoots up his arm. Patient denies any fever/ chills. Patient denies any chest pain/shortness of breath/dizziness. (Laila Martínez MD R2) Objective Vitals Vital Signs Date Time Temp Pulse Resp B/P (MAP) Pulse Ox O2 Delivery O2 Flow Rate FiO2 05/25/17 09:25 98 21 05/25/17 09:00 98.6 78 20 133/83 (100) 96 05/25/17 08:00 98.2 88 16 136/81 (99) 97 05/25/17 05:41 98 05/25/17 00:00 97.7 95 18 118/64 (82) 100 05/24/17 20:00 98.6 103 18 126/67 (86) 97 05/24/17 16:00 97.8 72 18 129/78 (95) 98 05/24/17 15:17 96.8 73 12 131/75 (93) 97 05/24/17 14:45 97.4 82 14 119/73 (88) 95 Nasal Cannula 3 05/24/17 14:30 86 14 117/70 (86) 95 Nasal Cannula 3 05/24/17 14:18 97.4 95 14 121/68 (85) 98 Nasal Cannula 3 05/24/17 12:00 97.2 69 18 132/83 (99) 97 I/O 05/24/17 05/24/17 05/24/17 05/25/17 05/25/17 05/25/17 07:00 15:00 23:00 07:00 15:00 23:00 Intake Total 1500 ml 1643 ml 2257 ml Output Total 10 ml 300 ml 1350 ml Balance 1490 ml 1343 ml 907 ml Intake Oral 0 ml 720 ml IV Total 1643 ml 1537 ml Other 1500 ml Output Urine Total 300 ml 1350 ml Stool Total 0 ml Estimated Blood Loss 10 ml # Bowel Movements 0 (Laila Martínez MD R2) Result Diagram: 05/25/1740905/25/17 0410 Objective Remarks GENERAL: Patient lying in bed in no acute distress, conversational SKIN: Warm and dry. HEAD: Normocephalic. EYES: No scleral icterus. No injection or drainage. NECK: Supple, trachea midline. No JVD or lymphadenopathy. CARDIOVASCULAR: Regular rate and rhythm without murmurs, gallops, or rubs. RESPIRATORY: Breath sounds are distant and equal bilaterally, wheezing and rhonchi auscultated (improved since exam on admission). No accessory muscle use. GASTROINTESTINAL: Abdomen soft, non-tender, nondistended. MUSCULOSKELETAL: No cyanosis, or edema. BACK: Nontender without obvious deformity. No CVA tenderness. (Laila Martínez MD R2) A/P Assessment and Plan Mr. Rutledge is a 37 y/o M with PMHx of schizoaffective disorder presenting with a R hand wound presenting with acute cellulitis. Discharge Planning Plan for discharge is pending recommendation of hand surgery (Laila Martínez MD R2) Attending Attestation Patient seen and examined. Case reviewed and discussed with the resident team. Agree with plan of care as discussed with me and documented in the resident note. spoke to his hand surgeon who requested addition of iv pain meds. he had a surgical procedure into the joint space which is very painful. spoke to pt and he had been incarcerated for 3 years and reported being on thorazine- 300mg during the day and 400 mg at night plus zoloft. he is less depressed since being out of halfway but still is homeless and not feeling well. he wishes to start back on his meds. I will start lowest dose of zoloft and thorazine. Thorazine will be almost at a placebo dose but will give in the evening to see if it helps him sleep. he stated he has been diagnosed with schizoaffective disorder for 10 years will also consult ID as his surgeon is not sure of exactly how long he needs abx. he has negative blood cultures and no osteo but his infection may be in the joint space- cultures from surgery are pending (Nita Anderson MD) Problem List: (1) Infected puncture wound of hand ICD Codes: S61.439A - Puncture wound without foreign body of unspecified hand, initial encounter; L08.9 - Local infection of the skin and subcutaneous tissue, unspecified Status: Acute Plan: Patient presenting with infected laceration of the right hand meeting sepsis criteria initially, postop day #1 from hand irrigation and exploration in the OR. White count has improved and heart rate is within normal limits -Right hand x-ray: Minimal tissue swelling at site of laceration without for body or bony changes. The joint spaces are maintained. Bony mineralization is normal. Initial labs: -CBC: WBC 13.6 with 70.3% neutrophils -Lactic acid: 1.8 -Blood cultures negative Labs: - CBC: WBC 13.6 --> 10.5 Medications: -Received clindamycin in ER -Vancomycin 1 g twice a day, pharmacy consulted for dosing -[place] when necessary for pain, Toradol when necessary for breakthrough pain -Normal saline at 140 mL per hour (2) Sepsis ICD Codes: A41.9 - Sepsis, unspecified organism Status: Acute Plan: Patient currently meeting sepsis criteria with leukocytosis of 13.6 and tachycardia to 97 bpm with his right hand wound being the source of infection. -Please see plan as above (3) COPD exacerbation ICD Codes: J44.1 - Chronic obstructive pulmonary disease with (acute) exacerbation Status: Acute Plan: Patient with symptoms of COPD exacerbation with positive prolonged smoking history concerning for possible acute on chronic COPD exacerbation he is improved since admission -Chest x-ray: Normal examination -Incentive spirometry Medications: -Levaquin 750 mg -DuoNeb's when necessary for shortness of breath (4) Alcohol use ICD Codes: Z78.9 - Other specified health status Status: Acute Plan: Patient with recent alcohol use and prior history of withdrawal -[facility] protocol placed -Thiamine, Multivitamin, and Folic Acid daily -Urine Drugs Screen: positive can address his substance use over the next few days. he has a history of Psychiatric issues and it is unclear why he is off all his medicines (5) Surgical contraindication to deep vein thrombosis (DVT) prophylaxis ICD Codes: Z53.09 - Procedure and treatment not carried out because of other contraindication Status: Acute Plan: Patient likely going for procedure with hand surgery, hold medical prophylaxis SCD/TEDs (6) Substance abuse ICD Codes: F19.10 - Other psychoactive substance abuse, uncomplicated Status: Chronic Plan: Patient continues to deny any drug use. Patient was informed that his UDS was positive UDS: Positive for opiates, positive for cocaine (7) Nutrition, metabolism, and development symptoms ICD Codes: R63.8 - Other symptoms and signs concerning food and fluid intake Status: Acute Plan: Diet: Regular diet Fluids: Normal saline at 140 mL per hour, can heplock once he takes po well Electrolytes: Within normal limits, continue to monitor Prophylaxis: [place] when necessary for pain, Toradol when necessary for breakthrough pain; here trying to avoid IV pain medications in anticipation of discharge today or tomorrow, DuoNeb when necessary for shortness of breath/ wheezing, Tylenol when necessary for fever, Per-Colace when necessary for constipation, Zofran when necessary for nausea or vomiting, Imodium as needed for diarrhea, Vistaril as needed for insomnia, Famotidine as needed for reflux (Laila Martínez MD R2) Problem Qualifiers (1) Infected puncture wound of hand: Qualified Codes: S61.431D - Puncture wound without foreign body of right hand, subsequent encounter; L08.9 - Local infection of the skin and subcutaneous tissue, unspecified (2) Sepsis: Qualified Codes: A41.9 - Sepsis, unspecified organism Laila Martínez MD R2 May 25, 2017 10:25 Nita Anderson MD May 25, 2017 13:12
--- NOTE | 2017-05-25 12:31 | HHI.PR ---
Subjective Remarks complains of pain over the right hand region difficult with range of motion of the fingers no fever Objective Vital Signs Date Time Temp Pulse Resp B/P (MAP) Pulse Ox O2 Delivery O2 Flow Rate FiO2 05/25/17 09:25 98 21 05/25/17 09:00 98.6 78 20 133/83 (100) 96 05/25/17 08:00 98.2 88 16 136/81 (99) 97 05/25/17 05:41 98 05/25/17 00:00 97.7 95 18 118/64 (82) 100 05/24/17 20:00 98.6 103 18 126/67 (86) 97 05/24/17 16:00 97.8 72 18 129/78 (95) 98 05/24/17 15:17 96.8 73 12 131/75 (93) 97 05/24/17 14:45 97.4 82 14 119/73 (88) 95 Nasal Cannula 3 05/24/17 14:30 86 14 117/70 (86) 95 Nasal Cannula 3 05/24/17 14:18 97.4 95 14 121/68 (85) 98 Nasal Cannula 3 I/O 05/24/17 05/24/17 05/24/17 05/25/17 05/25/17 05/25/17 06:59 14:59 22:59 06:59 14:59 22:59 Intake Total 1500 ml 1643 ml 2257 ml Output Total 10 ml 300 ml 1350 ml Balance 1490 ml 1343 ml 907 ml Intake Oral 0 ml 720 ml IV Total 1643 ml 1537 ml Other 1500 ml Output Urine Total 300 ml 1350 ml Stool Total 0 ml Estimated Blood Loss 10 ml # Bowel Movements 0 right hand: swelling and erythema over the dorsal aspect of the hand packing in place minimal drainage range of motion of index and middle fingers painful and limited cultures: MRSA Result Diagram: 05/25/1740905/25/17409 Assessment and Plan Assessment and Plan 37 year old infected laceration with MRSA right hand s/p drainage, wash and arthrotomy index finger MP joint plan: packing pulled out couple of cms surrounding skin cleaned with alcohol wipes and dry dressing applied keep the part elevated finger range of motion exercises continue with IV antibiotics hand surgery will follow. Adam Chinchilla MD May 25, 2017 12:31
[2017-05-25] MEDS: HYDROmorphone HCL PF 1 MG/ML VIAL IV PUSH PRN ×3 (13:55→22:00)
[2017-05-25] MEDS ORDERED: PILL SPLITTER OTHER PRN (14:00)
[2017-05-25] MEDS: SERTRALINE HCL 50 MG TAB PO SCH (14:54)
[2017-05-25] MEDS: LEVOFLOXACIN 750 MG PREMIX INJ 150 ML IV SCH (15:30)
--- NOTE | 2017-05-25 19:03 | PD.ID.CON ---
History of Present Illness Service ID Consult Requested By Reason for Consult Evaluation and management of hand infection possibility infective tenosynovitis. Primary Care Physician No Primary Care Physician Diagnoses: History of Present Illness Mr. Rutledge is a 37 y/o M with PMHx of schizoaffective disorder presenting with a R hand wound. He was seen in the ED 4 days ago with a superficial laceration of the R hand at the second MTP joint extending down the dorsal aspect of the R hand approximately 3 cm in length. The laceration was closed with 6 interrupted sutures, and he was discharged home. Over the past 3 days his hand has had worsening erythema, edema and has started to have purulent discharge. He also endorses 2 days of anorexia and vomiting with subjective fevers, chills, shortness of breath, and productive cough with yellow sputum. He also has been unable to flex his first 2 fingers since the laceration was sutured. Currently his pain is 9/10 and is sharp in nature radiating up to his mid forearm. ID consulted for evaluation and Mment of right hand abscess possible Tenosynovitis. Review of Systems ROS Limitations: Poor Historian Past Family Social History Allergies: Coded Allergies: amoxicillin (Unverified Allergy, Severe, Anaphylaxis, 05/23/17) PT states he has an anaphylactic rx when taking amoxicillin. bee venom protein (honey bee) (Unverified Allergy, Severe, 05/23/17) penicillin G (Unverified Allergy, Intermediate, 05/23/17) Past Medical History Schizoaffective disorder - off medications for 1 month (Thorizine, Vistaril, Zoloft), seen at [facility]. Past Surgical History Father - GERD, for Esophageal Cancer Mother - living, tobacco abuse 2 brothers and 1 sister - all healthy Reported Medications Reported Meds & Active Scripts Active Epipen 2-Rodrigo Inj (Epinephrine) 0.3 Mg/0.3 Ml Pfpen 0.3 Mg IM ONCE PRN Zantac (Ranitidine HCl) 300 Mg Tab 300 Mg PO DAILY Zyrtec (Cetirizine HCl) 10 Mg Tablet 1 Tab PO DAILY Prednisone 20 Mg Tab 20 Mg PO BID Reported Zoloft (Sertraline HCl) 100 Mg Tab 100 Mg PO DAILY Active Ordered Medications Current Medications Medications (Trade) Dose Ordered Sig/Lili Route Start Time Stop Time Status Last Admin Sodium Chloride 1,000 ml @ 140 mls/hr Q7H9M IV 05/23/17 13:46 05/25/17 20:08 (NS Flush) 2 ml UNSCH PRN IV FLUSH 05/23/17 14:00 (NS Flush) 2 ml BID IV FLUSH 05/23/17 21:00 05/23/17 20:04 (Tylenol) 650 mg Q4H PRN PO 05/23/17 14:00 (Zofran Inj) 4 mg Q6H PRN IVP 05/23/17 14:00 05/24/17 19:57 (Narcan Inj) 0.4 mg UNSCH PRN IV 05/23/17 14:00 (Florecita-Colace) 1 tab BID PRN PO 05/23/17 14:00 Pharmacy Profile Note 0 ml @ 0 mls/hr UNSCH OTHER 05/23/17 14:00 (Freeburg 5-325 Mg) 1 tab Q4H PRN PO 05/23/17 14:00 (Toradol Inj) 30 mg Q6H PRN IVP 05/23/17 14:00 05/28/17 13:59 05/25/17 08:04 (Duoneb Neb) 1 ampule Q6HR NEB INH 05/23/17 16:00 05/25/17 20:37 (Albuterol Neb) 2.5 mg Q2HR NEB PRN INH 05/23/17 14:00 Levofloxacin/ Dextrose 150 ml @ 100 mls/hr Q24H IV 05/23/17 16:00 05/25/17 15:30 Vancomycin HCl 1500 mg/Sodium Chloride 515 ml @ 250 mls/hr Q12H IV 05/23/17 18:00 05/25/17 17:52 (Romazicon Inj) 0.2 mg Q1M PRN IV PUSH 05/23/17 16:30 (Ativan) 1 mg Q4H PRN PO 05/23/17 16:30 (Ativan Inj) 1 mg Q4H PRN IV PUSH 05/23/17 16:30 (Ativan) 2 mg Q2H PRN PO 05/23/17 16:30 (Ativan Inj) 2 mg Q2H PRN IV PUSH 05/23/17 16:30 (Ativan Inj) 2 mg Q1H PRN IV PUSH 05/23/17 16:30 (Ativan Inj) 2 mg Q15M PRN IV PUSH 05/23/17 16:30 (Folate) 1 mg DAILY PO 05/23/17 17:00 05/28/17 16:59 05/25/17 08:04 (Vitamin B1) 100 mg DAILY PO 05/23/17 17:00 05/25/17 08:04 (Theragran M Tab) 1 tab DAILY PO 05/23/17 17:00 05/28/17 16:59 05/25/17 08:04 (Imodium) 2 mg Q6H PRN PO 05/23/17 16:45 (Vistaril) 50 mg HS PRN PO 05/23/17 21:00 (Pepcid) 20 mg BID PRN PO 05/23/17 16:45 Lactated Ringer's 1,000 ml @ 30 mls/hr Q24H PRN IV 05/24/17 04:00 05/27/17 03:59 (Benadryl) 50 mg Q8H PRN PO 05/25/17 06:15 05/25/17 06:33 (Freeburg 10-325 Mg) 1 tab Q4H PRN PO 05/25/17 10:00 05/25/17 20:07 (Dilaudid Pf Inj) 1 mg Q4H PRN IV PUSH 05/25/17 12:45 05/28/17 12:44 05/25/17 17:51 (Zoloft) 25 mg DAILY PO 05/25/17 14:00 05/25/17 14:54 (Thorazine) 10 mg HS PO 05/25/17 21:00 05/25/17 20:07 (Pill Splitter) 1 ea UNSCH PRN OTHER 05/25/17 14:00 Family History reviewed and NC Social History Currently homeless, looking at [place] with roommate for the future. Works as contractor. Pending insurance coverage. Tobacco - 1/2 ppd for 24 years Alcohol - couple times a week, less than a 6 pack, positive history for alcohol withdraw, last drink yesterday, 3 16oz beers Illicit - last used 3 years ago, cocaine. Denies IVDA. Physical Exam Vital Signs Vital Signs Date Time Temp Pulse Resp B/P (MAP) Pulse Ox O2 Delivery O2 Flow Rate FiO2 05/25/17 16:36 98 21 9/1/17 16:00 98.5 102 16 143/82 (102) 98 05/25/17 13:00 98.2 87 18 133/81 (98) 98 05/25/17 09:25 98 21 05/25/17 09:00 98.6 78 20 133/83 (100) 96 05/25/17 08:00 98.2 88 16 136/81 (99) 97 05/25/17 05:41 98 05/25/17 00:00 97.7 95 18 118/64 (82) 100 05/24/17 20:00 98.6 103 18 126/67 (86) 97 Physical Exam GENERAL: This is a well-nourished, well-developed patient, in no apparent distress. SKIN: No rashes, ecchymoses or lesions. Cool and dry. HEAD: Atraumatic. Normocephalic. No temporal or scalp tenderness. EYES: Pupils equal round and reactive. Extraocular motions intact. No scleral icterus. No injection or drainage. ENT: Nose without bleeding, purulent drainage or septal hematoma. Throat without erythema, tonsillar hypertrophy or exudate. Uvula midline. Airway patent. NECK: Trachea midline. Supple, nontender, no meningeal signs. CARDIOVASCULAR: Regular rate and rhythm without murmurs, gallops, or rubs. RESPIRATORY: Clear to auscultation. Breath sounds equal bilaterally. No wheezes , rales, or rhonchi. GASTROINTESTINAL: Abdomen soft, non-tender, nondistended. MUSCULOSKELETAL: Right hand in dressing. Patient able to wiggle his toes. NEUROLOGICAL: Awake and alert. Grossly non focal Psych cooperative IV line sites with no e/o infection Laboratory Laboratory Tests Test 05/25/17 04:10 05/25/17 05:45 White Blood Count 10.5 Red Blood Count 3.99 Hemoglobin 11.9 Hematocrit 36.7 Mean Corpuscular Volume 92.0 Mean Corpuscular Hemoglobin 29.9 Mean Corpuscular Hemoglobin Concent 32.5 Red Cell Distribution Width 16.5 Platelet Count 278 Mean Platelet Volume 8.1 Blood Urea Nitrogen 4 Creatinine 0.79 Random Glucose 110 Calcium Level 8.3 Sodium Level 142 Potassium Level 3.9 Chloride Level 109 Carbon Dioxide Level 25.9 Anion Gap 7 Estimat Glomerular Filtration Rate 109 Vancomycin Level Trough 9.4 Date/Time Source Procedure Growth Status 05/23/17 11:25 Blood Peripheral Aerobic Blood Culture - Preliminary NO GROWTH IN 2 DAYS Resulted 05/23/17 11:25 Blood Peripheral Anaerobic Blood Culture - Preliminary NO GROWTH IN 2 DAYS Resulted 05/24/17 14:53 Wound Finger Fungal Smear - Final NO FUNGAL ELEMENTS SEEN. Resulted 05/24/17 14:53 Wound Finger Fungal Culture Pending Resulted Result Diagram: 05/25/1740905/25/17409 Imaging Last Impressions Hand X-Ray 05/23/17 1039 Signed Impressions: Service Date/Time: Tuesday, May 23, 2017 11:06 - CONCLUSION: Negative for foreign body. Pascual Myers MD FACR Chest X-Ray 05/23/17 1039 Signed Impressions: Service Date/Time: Tuesday, May 23, 2017 11:09 - CONCLUSION: Normal examination. Roberto Mancilla Jr., MD Assessment and Plan Assessment and Plan Right hand cellulitis/abscess Right hand tenosynovitis. MRSA and Strep infection Homelessness Recs Continue Vanco IV (target 15-20) Discontinue Levaquin. Vanco covers Strep. Follow cultures Follow clinically. Residents to call Micro in am to request susceptibility for Strep Grp A. Ok to say requesting it. No one in micro when I called. Will d.w /hand surgeon and follow up on hand exam next week. Difficult discharge. Will consider Dalvance based on follow up and d/w hand surgeon about extent of infection. to cover for me this weekend. Cindy Prieto MD May 25, 2017 19:03
[2017-05-25] MEDS ORDERED: chlorproMAZINE HCL 10 MG TAB PO SCH (21:00)
[2017-05-26] VITALS (7 sets, daily range): BP systolic 129–148; BP diastolic 78–94; PULSE 80–93; RESP 18–20; TEMP 96.6–98; O2SAT 96–99
[2017-05-26] MEDS: HYDROmorphone HCL PF 1 MG/ML VIAL IV PUSH PRN ×7 (02:09→22:50)
[2017-05-26] MEDS: ACETAMINOPHEN/HYDROcodone 325 MG/10 MG TAB PO PRN ×6 (03:24→21:50)
[2017-05-26] MEDS: RESP: ALBUTEROL 2.5 MG/IPRATROPIUM 0.5 MG NEB (SCH) INH ×4 (04:00→21:10)
[2017-05-26] MEDS: VANCOMYCIN INJ 1,500 MG in SODIUM CHLORID 0.9% 500 ML INJ 500 ML IV SCH ×2 (06:22→17:46)
[2017-05-26] MEDS: KETOROLAC TROMETHAMINE 30 MG/ML (IVP) VIAL IVP PRN ×2 (06:50→20:43)
[2017-05-26] MEDS: diphenhydrAMINE HCL 50 MG CAP PO PRN (07:45)
[2017-05-26] MEDS: SODIUM CHLORIDE 0.9% FLUSH 10 ML FLUSH IV FLUSH SCH ×2 (09:00→19:37)
[2017-05-26] MEDS: MULTIVITAMINS/MINERALS THERAPEUTIC TAB PO SCH (09:28)
[2017-05-26] MEDS: FOLIC ACID 1 MG TAB PO SCH (09:28)
[2017-05-26] MEDS: SERTRALINE HCL 50 MG TAB PO SCH (09:29)
[2017-05-26] MEDS: THIAMINE HCL 100 MG TAB PO SCH (09:29)
--- NOTE | 2017-05-26 10:56 | HHI.FPPN ---
Subjective Remarks Patient seen and examined today. She is in no acute distress. Patient states that he did have increased pain overnight and he would like an increase of his pain medications. He states that he has been working with the general surgeon who rounds on him, and is improving with range of motion of his right hand. Patient states that over the last month he has been feeling better without his normal psychiatric medications, and he would like to continue to try to live without his psychiatric medications. Patient states that after he is discharged he will go to [facility] for reevaluation. Patient denies any current thoughts of hurting himself or hurting anyone else. She denies fever/ chills. Patient denies chest pain/shortness of breath/dizziness. (Laila Martínez MD R2) Objective Vitals Vital Signs Date Time Temp Pulse Resp B/P (MAP) Pulse Ox O2 Delivery O2 Flow Rate FiO2 05/26/17 08:00 97.2 84 18 132/86 (101) 98 05/26/17 00:00 96.6 93 20 141/86 (104) 96 05/25/17 20:00 97.3 96 20 134/99 (111) 98 05/25/17 16:36 98 21 05/25/17 16:00 98.5 102 16 143/82 (102) 98 05/25/17 13:00 98.2 87 18 133/81 (98) 98 I/O 05/25/17 05/25/17 05/25/17 05/26/17 05/26/17 05/26/17 07:00 15:00 23:00 07:00 15:00 23:00 Intake Total 2257 ml 3616 ml 1220 ml 850 ml 420 ml Output Total 1350 ml 700 ml 3150 ml 1500 ml Balance 907 ml 2916 ml -1930 ml -650 ml 420 ml Intake Oral 720 ml 2280 ml 1220 ml 250 ml IV Total 1537 ml 1336 ml 600 ml 420 ml Output Urine Total 1350 ml 700 ml 3150 ml 1500 ml # Voids 4 # Bowel Movements 1 1 (Laila Martínez MD R2) Result Diagram: 05/25/1740905/25/170 Objective Remarks GENERAL: Patient lying in bed in no acute distress, conversational SKIN: Warm and dry. HEAD: Normocephalic. EYES: No scleral icterus. No injection or drainage. NECK: Supple, trachea midline. No JVD or lymphadenopathy. CARDIOVASCULAR: Regular rate and rhythm without murmurs, gallops, or rubs. RESPIRATORY: Breath sounds are distant and equal bilaterally, wheezing and rhonchi auscultated (improved since exam on admission). No accessory muscle use. GASTROINTESTINAL: Abdomen soft, non-tender, nondistended. MUSCULOSKELETAL: No cyanosis, or edema. BACK: Nontender without obvious deformity. No CVA tenderness. (Laila Martínez MD R2) A/P Assessment and Plan Mr. Rutledge is a 37 y/o M with PMHx of schizoaffective disorder presenting with a R hand wound presenting with acute cellulitis. Discharge Planning Plan for discharge is pending recommendation of hand surgery and ID (Laila Martínez MD R2) Attending Attestation Patient seen and examined. Case reviewed and discussed with the resident team. Agree with plan of care as discussed with me and documented in the resident note. had discussion about his Psych history. he reports a 10 year history of schizoaffective disorder with remote history of Psychosis including hearing voices and other problems. He does not want his Psych meds now and will not take them as an outpt per his statement today. he hasn't taken them for a month so we can just stop the little doses he is on now as there is no point if he will not take them outpt. He has no psychosis now. all he wants is more pain meds. he was positive for opiates on admission plus cocaine. his hand surgeon does want him to move his hand well. discussed with Dr Martínez that she can consider different options on his pain meds. he probably has a high tolerance for opiates. however, he will probably ask for more pain meds daily forever. will rely on his nurses to help make judgement if he is oversedated or truly having pain vs drug seeking but his surgeon wants iv meds for now (Nita Anderson MD) Problem List: (1) Infected puncture wound of hand ICD Codes: S61.439A - Puncture wound without foreign body of unspecified hand, initial encounter; L08.9 - Local infection of the skin and subcutaneous tissue, unspecified Status: Acute Plan: Patient presenting with infected laceration of the right hand meeting sepsis criteria initially, postop day #2 from hand irrigation and exploration in the OR. White count has improved and heart rate is within normal limits -Hand surgery following: rec to elevate hand, do motion exercises -Hand Culture (from ED) : + MRSA ; sensitive to Clinda, Vanc, Bactrim -Hand and finger cx (intraop) : +MRSA ; sensitivities pending Initial labs: -CBC: WBC 13.6 with 70.3% neutrophils -Lactic acid: 1.8 -Blood cultures negative Labs: - CBC: WBC 13.6 --> 10.5 Medications: -Received clindamycin in ER -Vancomycin 1 g twice a day, pharmacy consulted for dosing -Burbank when necessary for pain, Toradol when necessary for breakthrough pain -Normal saline at 140 mL per hour - Will consider d/c with Dalance per ID recommendation Pain management: be generous per general surgery recommendation Dilaudid 1mg q4 --> Dilaudid 2mg q4 (05/26) Burbank 10 q4 Toradol 30 IM (2) Sepsis ICD Codes: A41.9 - Sepsis, unspecified organism Status: Acute Plan: On Admission: Patient currently meeting sepsis criteria with leukocytosis of 13.6 and tachycardia to 97 bpm with his right hand wound being the source of infection. -Please see plan as above (3) COPD exacerbation ICD Codes: J44.1 - Chronic obstructive pulmonary disease with (acute) exacerbation Status: Acute Plan: Patient with symptoms of COPD exacerbation with positive prolonged smoking history concerning for possible acute on chronic COPD exacerbation he is improved since admission. -Chest x-ray: Normal examination -Incentive spirometry Medications: -D/C Levaquin 750 mg -DuoNeb's when necessary for shortness of breath (4) Alcohol use ICD Codes: Z78.9 - Other specified health status Status: Acute Plan: Patient with recent alcohol use and prior history of withdrawal. Pt is off all previous psychiatric medications for past month but states that he feels better. -[facility] protocol placed -Thiamine, Multivitamin, and Folic Acid daily -Urine Drugs Screen: positive (5) Substance abuse ICD Codes: F19.10 - Other psychoactive substance abuse, uncomplicated Status: Chronic Plan: Patient continues to deny any drug use, lived at [facility] for last month. Patient was informed that his UDS was positive UDS: Positive for opiates, positive for cocaine (6) Schizoaffective disorder ICD Codes: F25.9 - Schizoaffective disorder, unspecified Status: Chronic Plan: Per pt diagnosed while in shelter and placed on Chlorpromazine 800mg (dose for severe psychosis hospitalization) and zoloft 100mg. Pt does not endorse any psychotic sx at this time. Denies any thoughts of hurting himself or anyone else. - No psychatric meds at this time. It is assumed that anything we start for him here in the hospital will not be continued as an outpatient. - No need for small act or psych consult at this time (7) Nutrition, metabolism, and development symptoms ICD Codes: R63.8 - Other symptoms and signs concerning food and fluid intake Status: Acute Plan: Diet: Regular diet Fluids: Normal saline at 140 mL per hour, can heplock once he takes po well Electrolytes: Within normal limits, continue to monitor Prophylaxis: Burbank when necessary for pain, Toradol when necessary for breakthrough pain; added Dilaudid 1mg IV per recs of hand surgery, DuoNeb when necessary for shortness of breath/wheezing, Tylenol when necessary for fever, Per-Colace when necessary for constipation, Zofran when necessary for nausea or vomiting, Imodium as needed for diarrhea, Vistaril as needed for insomnia, Famotidine as needed for reflux (8) Surgical contraindication to deep vein thrombosis (DVT) prophylaxis ICD Codes: Z53.09 - Procedure and treatment not carried out because of other contraindication Status: Acute Plan: Per Hand surgery; there is still a possibility the pt may need to go back to the OR to re-explore wound. SCD/TEDs (Laila Martínez MD R2) Problem Qualifiers (1) Infected puncture wound of hand: Qualified Codes: S61.431D - Puncture wound without foreign body of right hand, subsequent encounter; L08.9 - Local infection of the skin and subcutaneous tissue, unspecified (2) Sepsis: Qualified Codes: A41.9 - Sepsis, unspecified organism (3) Schizoaffective disorder: Qualified Codes: F25.9 - Schizoaffective disorder, unspecified Laila Martínez MD R2 May 26, 2017 10:56 Nita Anderson MD May 26, 2017 13:04
--- NOTE | 2017-05-26 11:18 | PD.ORT.PN ---
Subjective Post Op Day #: 2 Pain Scale: pain better Subjective Remarks Moving right hand better and says less swollen Range of Motion almost full AROM of right hand/fingers and thumb Objective Vitals Vital Signs Date Time Temp Pulse Resp B/P (MAP) Pulse Ox O2 Delivery O2 Flow Rate FiO2 05/26/17 08:00 97.2 84 18 132/86 (101) 98 05/26/17 00:00 96.6 93 20 141/86 (104) 96 05/25/17 20:00 97.3 96 20 134/99 (111) 98 05/25/17 16:36 98 21 05/25/17 16:00 98.5 102 16 143/82 (102) 98 05/25/17 13:00 98.2 87 18 133/81 (98) 98 I/O 05/25/17 05/25/17 05/25/17 05/26/17 05/26/17 05/26/17 07:00 15:00 23:00 07:00 15:00 23:00 Intake Total 2257 ml 3616 ml 1220 ml 850 ml 420 ml Output Total 1350 ml 700 ml 3150 ml 1500 ml Balance 907 ml 2916 ml -1930 ml -650 ml 420 ml Intake Oral 720 ml 2280 ml 1220 ml 250 ml IV Total 1537 ml 1336 ml 600 ml 420 ml Output Urine Total 1350 ml 700 ml 3150 ml 1500 ml # Voids 4 # Bowel Movements 1 1 Result Diagram: 05/25/17 0410 05/25/17 0410 Other Results cultures growing MRSA and group A beta strep--MICs of MRSA noted and Dr. Prieto has ordered MICs for strep Objective Remarks right hand wound with purulence on the packing, but no expressible pus has serosanguinous discharge on the dressing and wound and right hand with no erythema. minimal swelling right hand and full AROM of right thumb and fingers. Assessment & Plan Ortho Post Op Day #: 2 Problem List: (1) Infected puncture wound of hand ICD Codes: S61.439A - Puncture wound without foreign body of unspecified hand, initial encounter; L08.9 - Local infection of the skin and subcutaneous tissue, unspecified Status: Acute Qualifiers: Qualified Codes: S61.431D - Puncture wound without foreign body of right hand, subsequent encounter; L08.9 - Local infection of the skin and subcutaneous tissue, unspecified Plan: Continue IV antibiotics and on Vancomycin with ID following Wound right hand cleaned with peroxide and normal saline and repacked with 1/2" iodoform gauze and dressed with sterile 4x4s, ABD and Elizabeth. Encourage elevation and AROM of fingers to help with drainage and edema and to keep motion I am covering for Dr. Chinchilla (2) Laceration of right hand with infection ICD Codes: S61.411A - Laceration without foreign body of right hand, initial encounter; L08.9 - Local infection of the skin and subcutaneous tissue, unspecified Abby Jurado MD May 26, 2017 11:18
[2017-05-26 14:30] LABS: HEMATOCRIT 36.4 % (39.0-51.0); MEAN CELL VOLUME 92.2 FL (80.0-100.0); MEAN CORPUSCULAR HEMOGLOBIN 30.4 PG (27.0-34.0); MEAN CORPUSCULAR HGB CONC 32.9 % (32.0-36.0); PLATELET COUNT 281 TH/MM3 (150-450); RED BLOOD COUNT 3.95 MIL/MM3 (4.50-5.90); RED CELL DISTRIBUTION WIDTH 16.5 % (11.6-17.2); REVIEW FLAG FINAL; WHITE BLOOD COUNT 9.1 TH/MM3 (4.0-11.0)
[2017-05-26 14:51] LABS: BICARBONATE 29.1 MEQ/L (21.0-32.0); POTASSIUM 4.2 MEQ/L (3.5-5.1)
[2017-05-26] MEDS: SODIUM CHLOR 0.9% 1000 ML INJ 1,000 ML IV SCH ×3 (15:16→19:34)
--- NOTE | 2017-05-26 23:12 | MP ---
cc: DEISY HUBER DATE OF SURGERY May 24, 2017 PREOPERATIVE DIAGNOSIS Infected laceration right hand dorsum POSTOPERATIVE DIAGNOSIS Infected laceration right hand dorsum PROCEDURE Exploration, excisional debridement skin and subcutaneous tissue right hand and arthrotomy index finger metacarpal phalangeal joint. SURGEON Dr. Heidi Huber ANESTHESIA General ESTIMATED BLOOD LOSS Minimal TOURNIQUET TIME 34 minutes at 250 mmHg SPECIMEN Two specimens were sent, one from skin and subcutaneous tissue region of the right hand for culture sensitivity and the second specimen from the MP joint right index finger for culture sensitivity. DISPOSITION To PACU stable. INDICATIONS The patient is a 37-year-old male left-hand dominant who presented with complaints of worsening pain and swelling involving the right hand for the past three days. The patient had laceration of the right hand dorsum about three days ago. He was seen at [facility] ER. He had suturing of the laceration. He presented with infected laceration. The patient had removal of sutures yesterday and, on examination, he had inflammatory necrotic tissue within the skin and subcutaneous region of the hand. Range of motion of the index finger was limited and painful. He had an elevated white count initially which was trending down today. The patient was consented for exploration and debridement right hand. He was explained risks and benefits of the procedure. PROCEDURE IN DETAIL The patient was brought to the operating room under general anesthesia. The right upper extremity was thoroughly prepped and draped. The previously open laceration site was further explored. There was extensive granulation and inflammatory tissue surrounding the laceration site. This was by blunt dissection. Excisional debridement of necrotic and inflammatory tissue was carried out. Material was sent for cultures and sensitivity. Very minimal purulence was noted. There was evidence of thickening of the capsule and bulging of the capsule over the dorsal lateral aspect of the index finger and decision was made to proceed with the arthrotomy. The thickened part of the capsule was excised. A longitudinal capsulotomy was carried out. On further exploration, there was no evidence of purulent material within the MP joint of the index finger. Thorough wash was given initially with normal saline mixed with hydrogen peroxide in subcutaneous region. The joint was thoroughly washed with normal saline mixed with irrigant. About a liter of solution was used. Tourniquet was deflated. Total tourniquet time was 34 minutes. The patient had good distal circulation after release of tourniquet. Bleeding points were cauterized with bipolar cautery. Packing of the wounds were carried out. The capsulotomy was packed with 1/4" Iodoform packing material. The skin was then loosely approximated using 5-0 nylon in a horizontal mattress interrupted fashion. A bulky hand dressing was applied. About 3 mL of local anesthesia was given containing a mixture of 2% lidocaine, 1% Marcaine. Bulky hand dressing was applied which was held in place by bias hand wrap. The patient was recovered and sent to recovery room in stable condition. The plan will be to change dressing tomorrow, remove the index finger capsulotomy packing and continue the IV antibiotics. Deisy Huber MD SE/ /2:18 PM /10:58 PM NEW
[2017-05-27] VITALS: BP 136/88; PULSE 94; RESP 20; TEMP 98.1; O2SAT 94
[2017-05-27] MEDS: ACETAMINOPHEN/HYDROcodone 325 MG/10 MG TAB PO PRN ×6 (01:50→22:28)
[2017-05-27] MEDS: HYDROmorphone HCL PF 1 MG/ML VIAL IV PUSH PRN ×6 (02:53→23:44)
[2017-05-27] MEDS: RESP: ALBUTEROL 2.5 MG/IPRATROPIUM 0.5 MG NEB (SCH) INH ×2 (04:34→09:57)
[2017-05-27] MEDS: VANCOMYCIN INJ 1,500 MG in SODIUM CHLORID 0.9% 500 ML INJ 500 ML IV SCH ×2 (05:49→18:00)
[2017-05-27] MEDS: THIAMINE HCL 100 MG TAB PO SCH (07:55)
[2017-05-27] MEDS: FOLIC ACID 1 MG TAB PO SCH (07:55)
[2017-05-27] MEDS: SODIUM CHLORIDE 0.9% FLUSH 10 ML FLUSH IV FLUSH SCH ×2 (07:55→19:40)
[2017-05-27] MEDS: MULTIVITAMINS/MINERALS THERAPEUTIC TAB PO SCH (07:55)
[2017-05-27 08:00] VITALS: BP 131/89; PULSE 92; RESP 17; TEMP 96.4; O2SAT 97
--- NOTE | 2017-05-27 09:05 | HHI.FPPN ---
Subjective Remarks Patient seen and examined this morning by medical team. No acute events overnight per nursing staff. Vital signs remained stable. Range of motion and continues to improved with his edema greatly improved since admission. He states that his pain is well controlled with the Dilaudid at this time. His only complaints are mild calf cramping intermittently throughout the day bilaterally and itching with administration of his pain medication. Otherwise denies any fevers, shortness of breath, chest pain, abdominal pain, or NVD. (Mateo Grant MD R2) Objective Vitals Vital Signs Date Time Temp Pulse Resp B/P (MAP) Pulse Ox O2 Delivery O2 Flow Rate FiO2 05/27/17 08:00 96.4 92 17 131/89 (103) 97 05/27/17 03:23 17 05/27/17 02:50 18 05/27/17 00:00 98.1 94 20 136/88 (104) 94 05/26/17 21:43 18 05/26/17 20:00 97.7 93 20 145/94 (111) 96 05/26/17 16:10 99 21 05/26/17 16:00 97.5 85 19 148/91 (110) 96 05/26/17 12:00 98.0 80 18 129/78 (95) 99 05/26/17 10:29 96 I/O 05/26/17 05/26/17 05/26/17 05/27/17 05/27/17 05/27/17 06:59 14:59 22:59 06:59 14:59 22:59 Intake Total 850 ml 420 ml 3686 ml 500 ml 2240 ml Output Total 1500 ml 1200 ml 2100 ml Balance -650 ml 420 ml 2486 ml -1600 ml 2240 ml Intake Oral 250 ml 1280 ml 500 ml IV Total 600 ml 420 ml 2406 ml 2240 ml Output Urine Total 1500 ml 1200 ml 2100 ml # Voids 4 # Bowel Movements 1 (Mateo Grant MD R2) Result Diagram: 05/26/17 1333 05/26/17 1333 Objective Remarks GENERAL: Patient lying in bed in no acute distress, conversational SKIN: Warm and dry. HEENT: Atraumatic, normocephalic with EOMI. MMM. No rhinorrhea. No visible LAD or JVD. CARDIOVASCULAR: Regular rate and rhythm without murmurs, gallops, or rubs. RESPIRATORY: Clear to auscultation bilaterally with no CRW. No increased work of breathing. GASTROINTESTINAL: Abdomen soft, non-tender, nondistended with positive bowel sounds. MUSCULOSKELETAL: No cyanosis, or edema. Mild tenderness to palpation of the bilateral calves, negative Homans sign. RUE: Right upper extremity bandaged, clean dry and intact. No signs of drainage or hemorrhage. Patient able to flex all 5 fingers with minimal pain, improvement from prior exams. Capillary refill less than 2 seconds. Sensation intact. NEURO/PSYCH: Afocal. AAO 3. Normal interaction with medical staff. Normal speech (Mateo Grant MD R2) A/P Assessment and Plan Mr. Rutledge is a 37 y/o M with PMHx of schizoaffective disorder presenting with a R hand wound presenting with acute cellulitis. Discharge Planning Plan for discharge is pending recommendation of hand surgery and ID (Mateo Grant MD R2) Attending Attestation Patient seen and examined. Case reviewed and discussed with the resident team. Agree with plan of care as discussed with me and documented in the resident note. unsure if he will need any more surgery. agree with heparin for now, can hold if he goes back to surgery. (Nita Anderson MD) Problem List: (1) Infected puncture wound of hand ICD Codes: S61.439A - Puncture wound without foreign body of unspecified hand, initial encounter; L08.9 - Local infection of the skin and subcutaneous tissue, unspecified Status: Acute Plan: Patient presenting with infected laceration of the right hand meeting sepsis criteria initially, postop day #2 from hand irrigation and exploration in the OR. White count has improved and heart rate is within normal limits -Hand surgery following: rec to elevate hand, do motion exercises -Hand Culture (from ED) : + MRSA, Group A strep ; sensitive to Clinda, Vanc, Bactrim -Hand and finger cx (intraop) : +MRSA, Group A strep ; sensitivities pending -Microbiology lab called for Group A Strep sensitivities Medications: -Received clindamycin in ER -Vancomycin 1 g twice a day, pharmacy consulted for dosing -Munith when necessary for pain, Dilaudid when necessary for breakthrough pain -Decrease Normal saline 10 mL per hour, tolerating PO hydration well -Will consider d/c with [facility] per ID recommendation Pain management: Dilaudid 2mg q4 (05/26) Munith 10 q4 Toradol 30 IM Diphenhydramine 25mg Q4H with pain medication PRN for itching (2) Sepsis ICD Codes: A41.9 - Sepsis, unspecified organism Status: Acute Plan: On Admission: Patient currently meeting sepsis criteria with leukocytosis of 13.6 and tachycardia to 97 bpm with his right hand wound being the source of infection. -Please see plan as above (3) COPD exacerbation ICD Codes: J44.1 - Chronic obstructive pulmonary disease with (acute) exacerbation Status: Acute Plan: Patient with symptoms of COPD exacerbation with positive prolonged smoking history concerning for possible acute on chronic COPD exacerbation he is improved since admission. -Chest x-ray: Normal examination -Incentive spirometry Medications: -DuoNeb's when necessary for shortness of breath -Levaquin 05/23-05/25 (4) Alcohol use ICD Codes: Z78.9 - Other specified health status Status: Acute Plan: Patient with recent alcohol use and prior history of withdrawal. Pt is off all previous psychiatric medications for past month but states that he feels better. -[facility] protocol placed -Thiamine, Multivitamin, and Folic Acid daily -Urine Drugs Screen: positive (5) Substance abuse ICD Codes: F19.10 - Other psychoactive substance abuse, uncomplicated Status: Chronic Plan: Patient continues to deny any drug use, lived at [facility] for last month. Patient was informed that his UDS was positive UDS: Positive for opiates, positive for cocaine (6) Schizoaffective disorder ICD Codes: F25.9 - Schizoaffective disorder, unspecified Status: Chronic Plan: Per pt diagnosed while in senior living and placed on Chlorpromazine 800mg (dose for severe psychosis hospitalization) and zoloft 100mg. Pt does not endorse any psychotic sx at this time. Denies any thoughts of hurting himself or anyone else. - No psychatric meds at this time. It is assumed that anything we start for him here in the hospital will not be continued as an outpatient. - No need for small act or psych consult at this time (7) Nutrition, metabolism, and development symptoms ICD Codes: R63.8 - Other symptoms and signs concerning food and fluid intake Status: Acute Plan: Diet: Regular diet Fluids: Normal saline at 10ml per hour to keep IV established, tolerating PO well Electrolytes: Within normal limits, continue to monitor Prophylaxis: Munith when necessary for pain, Toradol when necessary for breakthrough pain; added Dilaudid IV per recs of hand surgery, DuoNeb when necessary for shortness of breath/wheezing, Tylenol when necessary for fever, Per-Colace when necessary for constipation, Zofran when necessary for nausea or vomiting, Imodium as needed for diarrhea, Vistaril as needed for insomnia, Famotidine as needed for reflux (8) No contraindication to deep vein thrombosis (DVT) prophylaxis ICD Codes: Z78.9 - Other specified health status Status: Acute Plan: Per Hand surgery; there is still a possibility the pt may need to go back to the OR to re-explore wound. -SCD/TEDs -Start Heparin 5000u Q8H for prophylaxis, will DC prior to other procedure if indicated (Mateo Grant MD R2) Problem Qualifiers (1) Infected puncture wound of hand: Qualified Codes: S61.431D - Puncture wound without foreign body of right hand, subsequent encounter; L08.9 - Local infection of the skin and subcutaneous tissue, unspecified (2) Sepsis: Qualified Codes: A41.9 - Sepsis, unspecified organism (3) Schizoaffective disorder: Qualified Codes: F25.9 - Schizoaffective disorder, unspecified Mateo Grant MD R2 May 27, 2017 09:05 Nita Anderson MD May 27, 2017 16:16
[2017-05-27 10:00] VITALS: O2SAT 98
[2017-05-27] MEDS: SODIUM CHLOR 0.9% 1000 ML INJ 1,000 ML IV SCH (10:08)
[2017-05-27] MEDS: KETOROLAC TROMETHAMINE 30 MG/ML (IVP) VIAL IVP PRN ×2 (10:09→18:20)
[2017-05-27] MEDS: ONDANSETRON HCL 4 MG/2 ML VIAL IVP PRN (10:09)
[2017-05-27 12:00] VITALS: BP 131/86; PULSE 84; RESP 18; TEMP 97.5; O2SAT 97
--- NOTE | 2017-05-27 12:59 | PD.ORT.PN ---
Subjective Post Op Day #: 3 Pain Scale: pain improved Subjective Remarks dressing moving around yesterday Objective Vitals Vital Signs Date Time Temp Pulse Resp B/P (MAP) Pulse Ox O2 Delivery O2 Flow Rate FiO2 05/27/17 12:00 97.5 84 18 131/86 (101) 97 05/27/17 10:00 98 21 05/27/17 08:00 96.4 92 17 131/89 (103) 97 05/27/17 03:23 17 05/27/17 02:50 18 05/27/17 00:00 98.1 94 20 136/88 (104) 94 05/26/17 21:43 18 05/26/17 20:00 97.7 93 20 145/94 (111) 96 05/26/17 16:10 99 21 05/26/17 16:00 97.5 85 19 148/91 (110) 96 I/O 05/26/17 05/26/17 05/26/17 05/27/17 05/27/17 05/27/17 07:00 15:00 23:00 07:00 15:00 23:00 Intake Total 850 ml 420 ml 3686 ml 500 ml 2240 ml Output Total 1500 ml 1200 ml 2100 ml Balance -650 ml 420 ml 2486 ml -1600 ml 2240 ml Intake Oral 250 ml 1280 ml 500 ml IV Total 600 ml 420 ml 2406 ml 2240 ml Output Urine Total 1500 ml 1200 ml 2100 ml # Voids 4 # Bowel Movements 1 Result Diagram: 05/26/17 1333 05/26/17 1333 Other Results MRSA and group A beta strep on cultures and MICs noted Objective Remarks right hand wound with serosanguinous drainage on the packing and dressing right hand with no erythema. minimal swelling right hand and nearly full AROM of right thumb and fingers. distal portion of the wound is closing and proximal portion of the wound is granulating and filling in from the base Assessment & Plan Ortho Post Op Day #: 3 Problem List: (1) Infected puncture wound of hand ICD Codes: S61.439A - Puncture wound without foreign body of unspecified hand, initial encounter; L08.9 - Local infection of the skin and subcutaneous tissue, unspecified Status: Acute Qualifiers: Qualified Codes: S61.431D - Puncture wound without foreign body of right hand, subsequent encounter; L08.9 - Local infection of the skin and subcutaneous tissue, unspecified Plan: Continue IV antibiotics and on Vancomycin with ID following Wound right hand cleaned with peroxide and normal saline and repacked with 1/2" iodoform gauze and dressed with sterile 4x4s, ABD and Elizabeth. Encourage elevation and AROM of fingers to help with drainage and edema and to keep motion I am covering for Dr. Chinchilla (2) Laceration of right hand with infection ICD Codes: S61.411A - Laceration without foreign body of right hand, initial encounter; L08.9 - Local infection of the skin and subcutaneous tissue, unspecified Status: Acute Qualifiers: Qualified Codes: S61.411D - Laceration without foreign body of right hand, subsequent encounter; L08.9 - Local infection of the skin and subcutaneous tissue, unspecified Assessment and Plan Continue IV Vancomycin and MICs done on Group A beta strep and MRSA Wound cleaned with peroxide and normal saline and lightly repacked today and plan on not packing tomorrow. Wound redressed with 4x4s, elizabeth and encourage AROM and elevation still. Will check wound tomorrow and see about ID recs, but this patient is homeless and says that he has nowhere to go....visitor in room with him as I am leaving. Wound has improved significantly and should not need more surgery, based on the appearance of the wound now. Abby Jurado MD May 27, 2017 12:59
[2017-05-27] MEDS: diphenhydrAMINE HCL 25 MG CAP PO PRN ×2 (13:09→19:39)
[2017-05-27] MEDS: HEPARIN SODIUM - SQ 10,000 UNITS/ML VIAL SQ SCH ×2 (13:16→19:39)
[2017-05-27 14:05] LABS: HEMATOCRIT 37.6 % (39.0-51.0); MEAN CELL VOLUME 92.1 FL (80.0-100.0); MEAN CORPUSCULAR HEMOGLOBIN 29.8 PG (27.0-34.0); MEAN CORPUSCULAR HGB CONC 32.4 % (32.0-36.0); PLATELET COUNT 303 TH/MM3 (150-450); RED BLOOD COUNT 4.09 MIL/MM3 (4.50-5.90); RED CELL DISTRIBUTION WIDTH 16.3 % (11.6-17.2); REVIEW FLAG FINAL; WHITE BLOOD COUNT 8.1 TH/MM3 (4.0-11.0)
[2017-05-27 14:20] LABS: BICARBONATE 28.8 MEQ/L (21.0-32.0); POTASSIUM 4.3 MEQ/L (3.5-5.1)
[2017-05-27 17:59] VITALS: O2SAT 97
[2017-05-27 20:00] VITALS: BP 143/91; PULSE 82; RESP 18; TEMP 97.3; O2SAT 97
[2017-05-28] VITALS: BP 130/73; PULSE 70; RESP 18; TEMP 97.1; O2SAT 96
[2017-05-28] MEDS: KETOROLAC TROMETHAMINE 30 MG/ML (IVP) VIAL IVP PRN ×2 (00:08→06:42)
[2017-05-28] MEDS: ACETAMINOPHEN/HYDROcodone 325 MG/10 MG TAB PO PRN ×5 (02:23→20:23)
[2017-05-28] MEDS: HYDROmorphone HCL PF 1 MG/ML VIAL IV PUSH PRN ×4 (04:02→18:47)
[2017-05-28 05:09] LABS: AUTOMATED NEUTROPHIL # 3.6 TH/MM3 (1.8-7.7); BASOPHIL # 0.1 TH/MM3 (0-0.2); BASOPHIL % 0.9 % (0.0-2.0); EOSINOPHIL # 0.4 TH/MM3 (0-0.4); EOSINOPHIL % 5.6 % (0.0-4.0); HEMATOCRIT 36.7 % (39.0-51.0); HEMO FLAGS DIFF FINAL; LYMPHOCYTE # 2.8 TH/MM3 (1.0-4.8); MEAN CELL VOLUME 91.8 FL (80.0-100.0); MEAN CORPUSCULAR HEMOGLOBIN 30.5 PG (27.0-34.0); MEAN CORPUSCULAR HGB CONC 33.2 % (32.0-36.0); MONO % 11.1 % (0.0-8.0); NEUT % 46.4 % (16.0-70.0); PLATELET COUNT 281 TH/MM3 (150-450); RED BLOOD COUNT 3.99 MIL/MM3 (4.50-5.90); WHITE BLOOD COUNT 7.7 TH/MM3 (4.0-11.0)
[2017-05-28 05:28] LABS: BICARBONATE 27.9 MEQ/L (21.0-32.0); POTASSIUM 4.2 MEQ/L (3.5-5.1)
[2017-05-28] MEDS: HEPARIN SODIUM - SQ 10,000 UNITS/ML VIAL SQ SCH ×3 (06:41→20:24)
[2017-05-28] MEDS: VANCOMYCIN INJ 1,500 MG in SODIUM CHLORID 0.9% 500 ML INJ 500 ML IV SCH (06:41)
[2017-05-28] MEDS: FOLIC ACID 1 MG TAB PO SCH (07:53)
[2017-05-28] MEDS: MULTIVITAMINS/MINERALS THERAPEUTIC TAB PO SCH (07:53)
[2017-05-28] MEDS: THIAMINE HCL 100 MG TAB PO SCH (07:53)
[2017-05-28] MEDS: SODIUM CHLORIDE 0.9% FLUSH 10 ML FLUSH IV FLUSH SCH ×2 (07:54→20:22)
[2017-05-28] MEDS: MUPIROCIN 2% OINT 22 GM TUBE TOPICAL SCH (07:54)
[2017-05-28] MEDS: diphenhydrAMINE HCL 25 MG CAP PO PRN ×3 (07:57→18:46)
[2017-05-28 08:00] VITALS: BP 137/88; PULSE 72; RESP 17; TEMP 97; O2SAT 96
[2017-05-28 10:31] VITALS: O2SAT 98
[2017-05-28] MEDS: SODIUM CHLOR 0.9% 1000 ML INJ 1,000 ML IV SCH (10:51)
--- NOTE | 2017-05-28 12:10 | HHI.FPPN ---
Subjective Remarks Patient seen by medical team today. No acute events overnight. Vitals have remained stable and pain well controlled with Dilaudid PRN. Orthopedic surgeon was at bedside today changing the dressing on patient's R hand. Patient reports improved ROM and decreased swelling. No bleeding, drainage or swelling. Denies fever, SOB, NVD. (Isidro Krishna MD R1) Objective Vitals Vital Signs Date Time Temp Pulse Resp B/P (MAP) Pulse Ox O2 Delivery O2 Flow Rate FiO2 05/28/17 10:31 98 05/28/17 08:00 97.0 72 17 137/88 (104) 96 05/28/17 00:00 97.1 70 18 130/73 (92) 96 05/27/17 20:00 97.3 82 18 143/91 (108) 97 05/27/17 17:59 97 21 I/O 05/27/17 05/27/17 05/27/17 05/28/17 05/28/17 05/28/17 07:00 15:00 23:00 07:00 15:00 23:00 Intake Total 500 ml 2240 ml 2283 ml 755 ml Output Total 2100 ml 4500 ml 2100 ml Balance -1600 ml 2240 ml -2217 ml -1345 ml Intake Oral 500 ml 860 ml 240 ml IV Total 2240 ml 1423 ml 515 ml Output Urine Total 2100 ml 4500 ml 2100 ml # Bowel Movements 0 1 (Isidro Krishna MD R1) Result Diagram: 05/28/17 0308 05/28/17 0308 Objective Remarks GENERAL: Patient lying in bed in no acute distress, conversational. Tolerating dressing change well with some wincing. SKIN: Warm and dry. HEENT: Atraumatic, normocephalic with EOMI. MMM. No rhinorrhea. No visible LAD or JVD. CARDIOVASCULAR: Regular rate and rhythm without murmurs, gallops, or rubs. RESPIRATORY: Clear to auscultation bilaterally with no CRW. No increased work of breathing. GASTROINTESTINAL: Abdomen soft, non-tender, nondistended with positive bowel sounds. MUSCULOSKELETAL: No cyanosis, or edema. Approximately 2 inch surgical incision with several stitches visible on dorsal aspect of R hand. Mild erythema with no bleeding, drainage appreciated. Clean, dry. Patient able to flex all 5 fingers with minimal pain. Capillary refill less than 2 seconds. Sensation intact. NEURO/PSYCH: Afocal. AAO 3. Normal interaction with medical staff. Normal speech (Isidro Krishna MD R1) A/P Assessment and Plan Mr. Rutledge is a 37 y/o M with PMHx of schizoaffective disorder presenting with a R hand wound presenting with acute cellulitis. Discharge Planning Plan for discharge is pending recommendation of hand surgery and ID (Isidro Krishna MD R1) Attending Attestation Patient seen and examined. Case reviewed and discussed with the resident team. Agree with plan of care as discussed with me and documented in the resident note. his hand is healing well but he still has an open wound. he had a bed at the [facility] but has lost that bed now. he reports just leaving half-way a month ago. he will probably be homeless when he leaves the hospital and not care for his wound properly. therefore, he will spend a few more days here in the hospital to ensure good wound healing. he has done well but his wound is still open. he should be able to have his iv dilaudid weaned down as it has been days since his surgery. he complained when the attempt was made to spread out his dilaudid doses. will try decreasing the dose and keeping q 3. he has been using street narcotics and may continue to ask for more (Nita Anderson MD) Problem List: (1) Infected puncture wound of hand ICD Codes: S61.439A - Puncture wound without foreign body of unspecified hand, initial encounter; L08.9 - Local infection of the skin and subcutaneous tissue, unspecified Status: Acute Plan: Patient presenting with infected laceration of the right hand meeting sepsis criteria initially, postop day #4 from hand irrigation and exploration in the OR. White count has improved and heart rate is within normal limits -Hand surgery following: rec to elevate hand, do motion exercises. Per bedside conversation they do not anticipate further surgery at this time -Hand Culture (from ED) : + MRSA, Group A strep ; sensitive to Clinda, Vanc, Bactrim -Hand and finger cx (intraop) : +MRSA, Group A strep ; sensitive to Clinda, Penicillin G, Vanc -Per discussion with ID, patient will likely need to stay on IV antibiotics for some time with the deepness of the wound/ability to care for wound outside of the hospital -Will begin to wean off IV pain medications Medications: -Received clindamycin in ER -Vancomycin 1,750 mg twice a day, pharmacy consulted for dosing -Topical Mupirocin applied to wound daily -Sibley when necessary for pain, Dilaudid when necessary for breakthrough pain Pain management: Dilaudid 1mg q6hr (05/28) Sibley 10 q4hr PRN Diphenhydramine 25mg Q4H with pain medication PRN for itching (2) Sepsis ICD Codes: A41.9 - Sepsis, unspecified organism Status: Acute Plan: Patient no longer meeting sepsis criteria. (3) COPD exacerbation ICD Codes: J44.1 - Chronic obstructive pulmonary disease with (acute) exacerbation Status: Acute Plan: Patient with symptoms of COPD exacerbation with positive prolonged smoking history concerning for possible acute on chronic COPD exacerbation on admission -Denies SOB, has not required breathing treatment in several days. -05/23 Chest x-ray: Normal examination -Incentive spirometry (4) Alcohol use ICD Codes: Z78.9 - Other specified health status Status: Acute Plan: Patient with recent alcohol use and prior history of withdrawal. Pt is off all previous psychiatric medications for past month but states that he feels better. -[facility] protocol placed -Thiamine, Multivitamin, and Folic Acid daily -Urine Drugs Screen: positive -No sign of withdrawal currently (5) Substance abuse ICD Codes: F19.10 - Other psychoactive substance abuse, uncomplicated Status: Chronic Plan: Patient continues to deny any drug use, lived at [facility] for last month. Patient was informed that his UDS was positive UDS: Positive for opiates, positive for cocaine (6) Schizoaffective disorder ICD Codes: F25.9 - Schizoaffective disorder, unspecified Status: Chronic Plan: Per pt diagnosed while in half-way and placed on Chlorpromazine 800mg (dose for severe psychosis hospitalization) and zoloft 100mg. Pt does not endorse any psychotic sx at this time. Denies any thoughts of hurting himself or anyone else. - No psychatric meds at this time. It is assumed that anything we start for him here in the hospital will not be continued as an outpatient. - No need for small act or psych consult at this time (7) Nutrition, metabolism, and development symptoms ICD Codes: R63.8 - Other symptoms and signs concerning food and fluid intake Status: Acute Plan: Diet: Regular diet Fluids: Normal saline at 10ml per hour to keep IV established, tolerating PO well Electrolytes: Within normal limits, continue to monitor Prophylaxis: Sibley when necessary for pain, Dilaudid when necessary for breakthrough pain; DuoNeb when necessary for shortness of breath/wheezing, Tylenol when necessary for fever, Per-Colace when necessary for constipation, Zofran when necessary for nausea or vomiting, Imodium as needed for diarrhea, Vistaril as needed for insomnia, Famotidine as needed for reflux (8) No contraindication to deep vein thrombosis (DVT) prophylaxis ICD Codes: Z78.9 - Other specified health status Status: Acute Plan: Per Hand surgery; the possibility of going back to the OR is unlikely at this time. -SCD/TEDs -Heparin 5000u Q8H for prophylaxis, will DC prior to other procedure if indicated (Isidro Krishna MD R1) Problem Qualifiers (1) Infected puncture wound of hand: Qualified Codes: S61.431D - Puncture wound without foreign body of right hand, subsequent encounter; L08.9 - Local infection of the skin and subcutaneous tissue, unspecified (2) Sepsis: Qualified Codes: A41.9 - Sepsis, unspecified organism (3) Schizoaffective disorder: Qualified Codes: F25.9 - Schizoaffective disorder, unspecified Isidro Krishna MD R1 May 28, 2017 12:10 Nita Anderson MD May 28, 2017 16:24
--- NOTE | 2017-05-28 12:14 | PD.ORT.PN ---
Subjective Post Op Day #: 4 Pain Scale: minimal Subjective Remarks dressing moving around yesterday and dressing is disheveled Objective Vitals Vital Signs Date Time Temp Pulse Resp B/P (MAP) Pulse Ox O2 Delivery O2 Flow Rate FiO2 05/28/17 10:31 98 05/28/17 08:00 97.0 72 17 137/88 (104) 96 05/28/17 00:00 97.1 70 18 130/73 (92) 96 05/27/17 20:00 97.3 82 18 143/91 (108) 97 05/27/17 17:59 97 21 I/O 05/27/17 05/27/17 05/27/17 05/28/17 05/28/17 05/28/17 07:00 15:00 23:00 07:00 15:00 23:00 Intake Total 500 ml 2240 ml 2283 ml 755 ml Output Total 2100 ml 4500 ml 2100 ml Balance -1600 ml 2240 ml -2217 ml -1345 ml Intake Oral 500 ml 860 ml 240 ml IV Total 2240 ml 1423 ml 515 ml Output Urine Total 2100 ml 4500 ml 2100 ml # Bowel Movements 0 1 Result Diagram: 05/28/17 0308 05/28/17 0308 Objective Remarks right hand wound with serosanguinous drainage on the dressing right hand with no erythema and nearly full AROM of right thumb and fingers minimal swelling right hand distal portion of the wound is closing and proximal portion of the wound is granulating and filling in from the base proximal 2 sutures are loose and removed today Assessment & Plan Ortho Post Op Day #: 4 Problem List: (1) Infected puncture wound of hand ICD Codes: S61.439A - Puncture wound without foreign body of unspecified hand, initial encounter; L08.9 - Local infection of the skin and subcutaneous tissue, unspecified Status: Acute Qualifiers: Qualified Codes: S61.431D - Puncture wound without foreign body of right hand, subsequent encounter; L08.9 - Local infection of the skin and subcutaneous tissue, unspecified Plan: Continue IV antibiotics and on Vancomycin with ID following Wound right hand cleaned with peroxide and normal saline and redressed with Bactroban ointment and sterile 4x4s, Elizabeth--I removed 2 proximal sutures today as they were very loose Encourage elevation and AROM of fingers to help with drainage and edema and to keep motion I am covering for Dr. Chinchilla Awaiting ID final recs--his discharge to me is guarded as he is homeless. He says that he cannot live even temporarily with his mother or brothers ( Mother was visiting him a couple of days ago when I was rounding) When safe discharge, could followup with me/Dr. Baldwin in the office. (2) Laceration of right hand with infection ICD Codes: S61.411A - Laceration without foreign body of right hand, initial encounter; L08.9 - Local infection of the skin and subcutaneous tissue, unspecified Status: Acute Qualifiers: Qualified Codes: S61.411D - Laceration without foreign body of right hand, subsequent encounter; L08.9 - Local infection of the skin and subcutaneous tissue, unspecified Assessment and Plan Continue IV Vancomycin and MICs done on Group A beta strep and MRSA Wound cleaned with peroxide and normal saline and lightly repacked today and plan on not packing tomorrow. Wound redressed with 4x4s, elizabeth and encourage AROM and elevation still. Will check wound tomorrow and see about ID recs, but this patient is homeless and says that he has nowhere to go....visitor in room with him as I am leaving. Wound has improved significantly and should not need more surgery, based on the appearance of the wound now. Abby Jurado MD May 28, 2017 12:14
--- NOTE | 2017-05-28 14:21 | HHI.IDPN ---
Subjective Subjective Remarks Mr. Rutledge is a 37 y/o M with PMHx of schizoaffective disorder presenting with a R hand wound. He was seen in the ED 4 days ago with a superficial laceration of the R hand at the second MTP joint extending down the dorsal aspect of the R hand approximately 3 cm in length. The laceration was closed with 6 interrupted sutures, and he was discharged home. Over the past 3 days his hand has had worsening erythema, edema and has started to have purulent discharge. He also endorses 2 days of anorexia and vomiting with subjective fevers, chills, shortness of breath, and productive cough with yellow sputum. He also has been unable to flex his first 2 fingers since the laceration was sutured. Currently his pain is 9/10 and is sharp in nature radiating up to his mid forearm. ID consulted for evaluation and Mment of right hand abscess possible Tenosynovitis. Overnight events reviewed. No fever No rash Antibiotics Vanco IV Lines Line sites with no e.o infection Past Medical History reviewed Allergies: Coded Allergies: amoxicillin (Unverified Allergy, Severe, Anaphylaxis, 05/23/17) PT states he has an anaphylactic rx when taking amoxicillin. bee venom protein (honey bee) (Unverified Allergy, Severe, 05/23/17) penicillin G (Unverified Allergy, Intermediate, 05/23/17) Objective . Vital Signs Date Time Temp Pulse Resp B/P (MAP) Pulse Ox O2 Delivery O2 Flow Rate FiO2 05/28/17 10:31 98 05/28/17 08:00 97.0 72 17 137/88 (104) 96 05/28/17 00:00 97.1 70 18 130/73 (92) 96 05/27/17 20:00 97.3 82 18 143/91 (108) 97 05/27/17 17:59 97 21 . Laboratory Tests Test 05/27/17 13:52 05/28/17 03:08 White Blood Count 8.1 TH/MM3 7.7 TH/MM3 Red Blood Count 4.09 MIL/MM3 3.99 MIL/MM3 Hemoglobin 12.2 GM/DL 12.2 GM/DL Hematocrit 37.6 % 36.7 % Mean Corpuscular Volume 92.1 FL 91.8 FL Mean Corpuscular Hemoglobin 29.8 PG 30.5 PG Mean Corpuscular Hemoglobin Concent 32.4 % 33.2 % Red Cell Distribution Width 16.3 % 16.0 % Platelet Count 303 TH/MM3 281 TH/MM3 Mean Platelet Volume 7.3 FL 8.6 FL Neutrophils (%) (Auto) 46.4 % Lymphocytes (%) (Auto) 36.0 % Monocytes (%) (Auto) 11.1 % Eosinophils (%) (Auto) 5.6 % Basophils (%) (Auto) 0.9 % Neutrophils # (Auto) 3.6 TH/MM3 Lymphocytes # (Auto) 2.8 TH/MM3 Monocytes # (Auto) 0.9 TH/MM3 Eosinophils # (Auto) 0.4 TH/MM3 Basophils # (Auto) 0.1 TH/MM3 CBC Comment DIFF FINAL Differential Comment Laboratory Tests Test 05/27/17 13:52 05/28/17 03:08 Blood Urea Nitrogen 6 MG/DL 10 MG/DL Creatinine 0.89 MG/DL 0.83 MG/DL Random Glucose 98 MG/DL 77 MG/DL Calcium Level 8.7 MG/DL 8.7 MG/DL Sodium Level 138 MEQ/L 139 MEQ/L Potassium Level 4.3 MEQ/L 4.2 MEQ/L Chloride Level 103 MEQ/L 103 MEQ/L Carbon Dioxide Level 28.8 MEQ/L 27.9 MEQ/L Anion Gap 6 MEQ/L 8 MEQ/L Estimat Glomerular Filtration Rate 95 ML/MIN 103 ML/MIN Imaging Last Impressions Hand X-Ray 05/23/17 1039 Signed Impressions: Service Date/Time: Tuesday, May 23, 2017 11:06 - CONCLUSION: Negative for foreign body. Pascual Myers MD FACR Chest X-Ray 05/23/17 1039 Signed Impressions: Service Date/Time: Tuesday, May 23, 2017 11:09 - CONCLUSION: Normal examination. Roberto Mancilla Jr., MD Physical Exam GENERAL: This is a well-nourished, well-developed patient, in no apparent distress. SKIN: No rashes, ecchymoses or lesions. Cool and dry. HEAD: Atraumatic. Normocephalic. No temporal or scalp tenderness. EYES: Pupils equal round and reactive. Extraocular motions intact. No scleral icterus. No injection or drainage. ENT: Nose without bleeding, purulent drainage or septal hematoma. Throat without erythema, tonsillar hypertrophy or exudate. Uvula midline. Airway patent. NECK: Trachea midline. Supple, nontender, no meningeal signs. CARDIOVASCULAR: Regular rate and rhythm without murmurs, gallops, or rubs. RESPIRATORY: Clear to auscultation. Breath sounds equal bilaterally. No wheezes , rales, or rhonchi. GASTROINTESTINAL: Abdomen soft, non-tender, nondistended. MUSCULOSKELETAL: Right hand in dressing. Patient able to wiggle his toes. NEUROLOGICAL: Awake and alert. Grossly non focal Psych cooperative IV line sites with no e/o infection Assessment & Plan Remarks Right hand cellulitis/abscess Right hand tenosynovitis. MRSA and Strep infection Homelessness Recs Continue Vanco IV (target 15-20) Vanco covers Strep. Follow cultures Follow clinically. Difficult discharge. Not candidate for Dalvance at present time due to deeper infection. Another concern is his ability to take care of the deep wound. weekly CBC with diff, CMP, CRP to be ordered and followed by primary team Vanco levels by pharmacy at target stated above. Will follow prn. Please call me back in 2 weeks time to reassess clinical regimen. Cindy Prieto MD May 28, 2017 14:21
[2017-05-28 16:00] VITALS: BP 132/82; PULSE 88; RESP 17; TEMP 98.5; O2SAT 97
[2017-05-28] MEDS: VANCOMYCIN INJ 1,750 MG in SODIUM CHLORID 0.9% 500 ML INJ 500 ML IV SCH (17:29)
[2017-05-28] MEDS ORDERED: KETOROLAC TROMETHAMINE 30 MG/ML (IVP) VIAL IV PUSH ONE (17:30)
[2017-05-28 20:00] VITALS: BP 137/77; PULSE 76; RESP 18; TEMP 97.3; O2SAT 96
[2017-05-29] VITALS (7 sets, daily range): BP systolic 123–146; BP diastolic 77–94; PULSE 66–76; RESP 16–18; TEMP 97.2–98.7; O2SAT 95–99
[2017-05-29] MEDS: ACETAMINOPHEN/HYDROcodone 325 MG/10 MG TAB PO PRN ×5 (00:27→22:08)
[2017-05-29] MEDS: HYDROmorphone HCL PF 1 MG/ML VIAL IV PUSH PRN ×3 (01:46→14:34)
[2017-05-29] MEDS: HEPARIN SODIUM - SQ 10,000 UNITS/ML VIAL SQ SCH ×3 (05:09→20:03)
[2017-05-29] MEDS: VANCOMYCIN INJ 1,750 MG in SODIUM CHLORID 0.9% 500 ML INJ 500 ML IV SCH ×2 (05:10→16:47)
[2017-05-29 06:41] LABS: AUTOMATED NEUTROPHIL # 3.8 TH/MM3 (1.8-7.7); BASOPHIL # 0.1 TH/MM3 (0-0.2); BASOPHIL % 1.4 % (0.0-2.0); EOSINOPHIL # 0.5 TH/MM3 (0-0.4); EOSINOPHIL % 6.2 % (0.0-4.0); HEMATOCRIT 40.7 % (39.0-51.0); HEMO FLAGS DIFF FINAL; LYMPHOCYTE # 2.3 TH/MM3 (1.0-4.8); MEAN CELL VOLUME 91.2 FL (80.0-100.0); MEAN CORPUSCULAR HEMOGLOBIN 30.2 PG (27.0-34.0); MEAN CORPUSCULAR HGB CONC 33.1 % (32.0-36.0); MONO % 12.1 % (0.0-8.0); NEUT % 50.3 % (16.0-70.0); PLATELET COUNT 321 TH/MM3 (150-450); RED BLOOD COUNT 4.46 MIL/MM3 (4.50-5.90); RED CELL DISTRIBUTION WIDTH 16.1 % (11.6-17.2); WHITE BLOOD COUNT 7.6 TH/MM3 (4.0-11.0)
[2017-05-29 07:00] LABS: BICARBONATE 30.5 MEQ/L (21.0-32.0); POTASSIUM 4.1 MEQ/L (3.5-5.1)
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
[2017-05-29] MEDS: THIAMINE HCL 100 MG TAB PO SCH (08:23)
[2017-05-29] MEDS: diphenhydrAMINE HCL 25 MG CAP PO PRN ×2 (08:23→16:49)
[2017-05-29] MEDS: MUPIROCIN 2% OINT 22 GM TUBE TOPICAL SCH (08:25)
[2017-05-29] MEDS: SODIUM CHLORIDE 0.9% FLUSH 10 ML FLUSH IV FLUSH SCH ×2 (08:26→20:03)
[2017-05-29] MEDS: SODIUM CHLOR 0.9% 1000 ML INJ 1,000 ML IV SCH (09:47)
[2017-05-29] MEDS: KETOROLAC TROMETHAMINE 10 MG TAB PO PRN ×2 (12:45→20:03)
[2017-05-30] VITALS: BP 129/77; PULSE 67; RESP 18; TEMP 97.2; O2SAT 97
[2017-05-30] MEDS: HYDROmorphone HCL PF 1 MG/ML VIAL IV PUSH PRN ×4 (00:09→20:54)
[2017-05-30] MEDS: ACETAMINOPHEN/HYDROcodone 325 MG/10 MG TAB PO PRN ×4 (05:38→19:45)
[2017-05-30] MEDS: HEPARIN SODIUM - SQ 10,000 UNITS/ML VIAL SQ SCH ×3 (05:38→19:45)
[2017-05-30] MEDS ORDERED: PHARMACY ORDERED LAB ONE (05:45)
[2017-05-30] MEDS: VANCOMYCIN INJ 1,750 MG in SODIUM CHLORID 0.9% 500 ML INJ 500 ML IV SCH (06:43)
[2017-05-30 07:06] LABS: AUTOMATED NEUTROPHIL # 4.9 TH/MM3 (1.8-7.7); BASOPHIL # 0.1 TH/MM3 (0-0.2); BASOPHIL % 1.2 % (0.0-2.0); EOSINOPHIL # 0.4 TH/MM3 (0-0.4); EOSINOPHIL % 4.9 % (0.0-4.0); HEMATOCRIT 42.3 % (39.0-51.0); HEMO FLAGS DIFF FINAL; MEAN CELL VOLUME 90.6 FL (80.0-100.0); MEAN CORPUSCULAR HEMOGLOBIN 29.5 PG (27.0-34.0); MEAN CORPUSCULAR HGB CONC 32.6 % (32.0-36.0); NEUT % 57.9 % (16.0-70.0); PLATELET COUNT 329 TH/MM3 (150-450); RED BLOOD COUNT 4.67 MIL/MM3 (4.50-5.90); RED CELL DISTRIBUTION WIDTH 15.7 % (11.6-17.2); WHITE BLOOD COUNT 8.6 TH/MM3 (4.0-11.0)
[2017-05-30 07:28] LABS: BICARBONATE 27.3 MEQ/L (21.0-32.0); POTASSIUM 4.2 MEQ/L (3.5-5.1)
[2017-05-30 08:00] VITALS: BP 130/73; PULSE 66; RESP 17; TEMP 97.5; O2SAT 96
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
[2017-05-30] MEDS ORDERED: RESP: ALBUTEROL 2.5 MG/3 ML NEB (PRN) NEB (08:45)
[2017-05-30] MEDS: THIAMINE HCL 100 MG TAB PO SCH (08:55)
[2017-05-30] MEDS: MUPIROCIN 2% OINT 22 GM TUBE TOPICAL SCH (08:55)
[2017-05-30] MEDS: SODIUM CHLORIDE 0.9% FLUSH 10 ML FLUSH IV FLUSH SCH ×2 (08:55→19:46)
[2017-05-30] MEDS: diphenhydrAMINE HCL 25 MG CAP PO PRN ×2 (09:02→19:45)
[2017-05-30] MEDS: SODIUM CHLOR 0.9% 1000 ML INJ 1,000 ML IV SCH (10:43)
[2017-05-30] MEDS: KETOROLAC TROMETHAMINE 10 MG TAB PO PRN ×2 (11:57→17:54)
[2017-05-30 12:00] VITALS: BP 126/80; PULSE 71; RESP 18; TEMP 97.7; O2SAT 99
[2017-05-30 16:00] VITALS: BP 152/84; PULSE 69; RESP 17; TEMP 97.4; O2SAT 94
--- NOTE | 2017-05-30 16:35 | HHI.IDPN ---
Subjective Subjective Remarks Mr. Rutledge is a 37 y/o M with PMHx of schizoaffective disorder presenting with a R hand wound. He was seen in the ED 4 days ago with a superficial laceration of the R hand at the second MTP joint extending down the dorsal aspect of the R hand approximately 3 cm in length. The laceration was closed with 6 interrupted sutures, and he was discharged home. Over the past 3 days his hand has had worsening erythema, edema and has started to have purulent discharge. He also endorses 2 days of anorexia and vomiting with subjective fevers, chills, shortness of breath, and productive cough with yellow sputum. He also has been unable to flex his first 2 fingers since the laceration was sutured. Currently his pain is 9/10 and is sharp in nature radiating up to his mid forearm. ID consulted for evaluation and Mment of right hand abscess possible Tenosynovitis. Overnight events reviewed. No fever No rash Antibiotics Vanco IV Lines Line sites with no e.o infection Past Medical History reviewed Allergies: Coded Allergies: amoxicillin (Unverified Allergy, Severe, Anaphylaxis, 05/23/17) PT states he has an anaphylactic rx when taking amoxicillin. bee venom protein (honey bee) (Unverified Allergy, Severe, 05/23/17) penicillin G (Unverified Allergy, Intermediate, 05/23/17) Objective . Vital Signs Date Time Temp Pulse Resp B/P (MAP) Pulse Ox O2 Delivery O2 Flow Rate FiO2 05/30/17 12:00 97.7 71 18 126/80 (95) 99 05/30/17 08:00 97.5 66 17 130/73 (92) 96 05/30/17 00:00 97.2 67 18 129/77 (94) 97 05/29/17 20:00 97.2 66 18 146/90 (108) 99 05/29/17 17:19 96 05/29/17 17:17 95 Nasal Cannula . Laboratory Tests Test 05/29/17 04:53 05/30/17 06:35 White Blood Count 7.6 TH/MM3 8.6 TH/MM3 Red Blood Count 4.46 MIL/MM3 4.67 MIL/MM3 Hemoglobin 13.5 GM/DL 13.8 GM/DL Hematocrit 40.7 % 42.3 % Mean Corpuscular Volume 91.2 FL 90.6 FL Mean Corpuscular Hemoglobin 30.2 PG 29.5 PG Mean Corpuscular Hemoglobin Concent 33.1 % 32.6 % Red Cell Distribution Width 16.1 % 15.7 % Platelet Count 321 TH/MM3 329 TH/MM3 Mean Platelet Volume 8.1 FL 7.4 FL Neutrophils (%) (Auto) 50.3 % 57.9 % Lymphocytes (%) (Auto) 30.0 % 24.0 % Monocytes (%) (Auto) 12.1 % 12.0 % Eosinophils (%) (Auto) 6.2 % 4.9 % Basophils (%) (Auto) 1.4 % 1.2 % Neutrophils # (Auto) 3.8 TH/MM3 4.9 TH/MM3 Lymphocytes # (Auto) 2.3 TH/MM3 2.0 TH/MM3 Monocytes # (Auto) 0.9 TH/MM3 1.0 TH/MM3 Eosinophils # (Auto) 0.5 TH/MM3 0.4 TH/MM3 Basophils # (Auto) 0.1 TH/MM3 0.1 TH/MM3 CBC Comment DIFF FINAL DIFF FINAL Differential Comment Laboratory Tests Test 05/29/17 04:53 05/30/17 06:35 Blood Urea Nitrogen 13 MG/DL 13 MG/DL Creatinine 1.04 MG/DL 0.99 MG/DL Random Glucose 79 MG/DL 88 MG/DL Calcium Level 9.0 MG/DL 9.0 MG/DL Sodium Level 140 MEQ/L 139 MEQ/L Potassium Level 4.1 MEQ/L 4.2 MEQ/L Chloride Level 103 MEQ/L 105 MEQ/L Carbon Dioxide Level 30.5 MEQ/L 27.3 MEQ/L Anion Gap 7 MEQ/L 7 MEQ/L Estimat Glomerular Filtration Rate 80 ML/MIN 84 ML/MIN C-Reactive Protein 1.14 MG/DL Imaging Last Impressions Hand X-Ray 05/23/17 1039 Signed Impressions: Service Date/Time: Tuesday, May 23, 2017 11:06 - CONCLUSION: Negative for foreign body. Pascual Myers MD FACR Chest X-Ray 05/23/17 1039 Signed Impressions: Service Date/Time: Tuesday, May 23, 2017 11:09 - CONCLUSION: Normal examination. Roberto Mancilla Jr., MD Physical Exam GENERAL: This is a well-nourished, well-developed patient, in no apparent distress. SKIN: No rashes, ecchymoses or lesions. Cool and dry. HEAD: Atraumatic. Normocephalic. No temporal or scalp tenderness. EYES: Pupils equal round and reactive. Extraocular motions intact. No scleral icterus. No injection or drainage. ENT: Nose without bleeding, purulent drainage or septal hematoma. Throat without erythema, tonsillar hypertrophy or exudate. Uvula midline. Airway patent. NECK: Trachea midline. Supple, nontender, no meningeal signs. CARDIOVASCULAR: Regular rate and rhythm without murmurs, gallops, or rubs. RESPIRATORY: Clear to auscultation. Breath sounds equal bilaterally. No wheezes , rales, or rhonchi. GASTROINTESTINAL: Abdomen soft, non-tender, nondistended. MUSCULOSKELETAL: Right hand in dressing. Patient able to wiggle his toes. NEUROLOGICAL: Awake and alert. Grossly non focal Psych cooperative IV line sites with no e/o infection Assessment & Plan Remarks Right hand cellulitis/abscess Right hand tenosynovitis. MRSA and Strep infection Homelessness Recs Continue Vanco IV (target 15-20) Vanco covers Strep. Follow cultures Follow clinically. Difficult discharge. Not candidate for Dalvance at present time due to deeper infection. Another concern is his ability to take care of the deep wound. weekly CBC with diff, CMP, CRP to be ordered and followed by primary team Vanco levels by pharmacy at target stated above. Will follow prn. Please call me back in 2 weeks time to reassess clinical regimen. Cindy Prieto MD May 30, 2017 16:35
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
[2017-05-30] MEDS: VANCOMYCIN INJ 1,500 MG in SODIUM CHLORID 0.9% 500 ML INJ 500 ML IV SCH (17:55)
[2017-05-30 20:00] VITALS: BP 132/77; PULSE 80; RESP 18; TEMP 98.2; O2SAT 97
[2017-05-31] VITALS: BP 120/69; PULSE 68; RESP 18; TEMP 97.7; O2SAT 95
[2017-05-31] MEDS: diphenhydrAMINE HCL 25 MG CAP PO PRN ×2 (03:50→21:26)
[2017-05-31] MEDS: ACETAMINOPHEN/HYDROcodone 325 MG/10 MG TAB PO PRN ×4 (03:51→21:23)
[2017-05-31] MEDS: VANCOMYCIN INJ 1,500 MG in SODIUM CHLORID 0.9% 500 ML INJ 500 ML IV SCH ×2 (05:35→18:18)
[2017-05-31] MEDS: HEPARIN SODIUM - SQ 10,000 UNITS/ML VIAL SQ SCH ×3 (05:36→21:23)
[2017-05-31] MEDS: HYDROmorphone HCL PF 1 MG/ML VIAL IV PUSH PRN (05:36)
[2017-05-31 08:00] VITALS: BP 125/76; PULSE 65; RESP 17; TEMP 97.4; O2SAT 99
[2017-05-31] MEDS: SODIUM CHLORIDE 0.9% FLUSH 10 ML FLUSH IV FLUSH SCH ×2 (09:00→21:00)
[2017-05-31] MEDS: MUPIROCIN 2% OINT 22 GM TUBE TOPICAL SCH (09:00)
--- NOTE | 2017-05-31 09:25 | HHI.FPPN ---
Subjective Remarks Mr. Rutledge seen by residents this AM. No acute events overnight, vitals were stable. Patient reports some soreness in the R hand but continued improvement in ROM, function. Wound was redressed yesterday with no problems. Denies CP, SOB , NVD. (Isidro Krishna MD R1) Objective Vitals Vital Signs Date Time Temp Pulse Resp B/P (MAP) Pulse Ox O2 Delivery O2 Flow Rate FiO2 05/31/17 08:00 97.4 65 17 125/76 (92) 99 05/31/17 00:00 97.7 68 18 120/69 (86) 95 05/30/17 20:00 98.2 80 18 132/77 (95) 97 05/30/17 16:00 97.4 69 17 152/84 (106) 94 05/30/17 12:00 97.7 71 18 126/80 (95) 99 I/O 05/30/17 05/30/17 05/30/17 05/31/17 05/31/17 05/31/17 07:00 15:00 23:00 07:00 15:00 23:00 Intake Total 130 ml 1490 ml Output Total 1800 ml 1700 ml Balance -1670 ml -210 ml Intake Oral 975 ml IV Total 130 ml 515 ml Output Urine Total 1800 ml 1700 ml # Bowel Movements 1 (Isidro Krishna MD R1) Result Diagram: 05/30/17 0635 05/30/17 0635 Objective Remarks GENERAL: Patient lying in bed in no acute distress, conversational. SKIN: Warm and dry. HEENT: Atraumatic, normocephalic with EOMI. MMM. No rhinorrhea. No visible LAD or JVD. CARDIOVASCULAR: Regular rate and rhythm without murmurs, gallops, or rubs. RESPIRATORY: Clear to auscultation bilaterally with no CRW. No increased work of breathing. GASTROINTESTINAL: Abdomen soft, non-tender, nondistended with positive bowel sounds. MUSCULOSKELETAL: No cyanosis, or edema. Wound dressing on R hand is clean, dry. Patient able to flex all 5 fingers with minimal pain. Improved from yesterday. Sensation intact. NEURO/PSYCH: Afocal. AAO 3. Normal speech (Isidro Krishna MD R1) A/P Assessment and Plan Mr. Rutledge is a 37 y/o M with PMHx of schizoaffective disorder that presented with a R hand wound with acute cellulitis. Discharge Planning Plan for discharge is pending completion of IV antibiotics per ID. Would prefer to transfer to [place] if possible. (Isidro Krisnha MD R1) Attending Attestation Patient seen, examined, and discussed with resident team. I agree with assessment and management as documented and discussed with me. Pt reports good hand movement. He has no major concerns today. He reports TdaP at last ER visit. Await prolonged course of antibiotics, per ID. Will recontact ID after 2 weeks of abx (06/13/17). (Louise Mireles MD) Problem List: (1) Infected puncture wound of hand ICD Codes: S61.439A - Puncture wound without foreign body of unspecified hand, initial encounter; L08.9 - Local infection of the skin and subcutaneous tissue, unspecified Status: Acute Plan: Patient presenting with infected laceration of the right hand meeting sepsis criteria initially, postop day #5 from hand irrigation and exploration in the OR. White count has improved and heart rate is within normal limits -Per discussion with ID, patient will likely need to stay on IV antibiotics for some time with the deepness of the wound/ability to care for wound outside of the hospital - likely at least a week -No IV pain medications starting today -Will inquire about last Tetanus vaccine, will give Tdap if needed Medications: -Received clindamycin in ER -Vancomycin 1,750 mg twice a day, pharmacy consulted for dosing -Topical Mupirocin applied to wound daily -[place], Toradol when necessary for pain -Diphenhydramine 25mg Q4H with pain medication PRN for itching (2) Alcohol use ICD Codes: Z78.9 - Other specified health status Status: Acute Plan: Patient with prior history of withdrawal. Pt is off all previous psychiatric medications for past month but states that he feels better. -[facility] protocol discontinued -Thiamine, Multivitamin, and Folic Acid daily (3) Substance abuse ICD Codes: F19.10 - Other psychoactive substance abuse, uncomplicated Status: Chronic Plan: Patient continues to deny any drug use, lived at [facility] for last month. Patient was informed that his UDS was positive UDS: Positive for opiates, positive for cocaine (4) Schizoaffective disorder ICD Codes: F25.9 - Schizoaffective disorder, unspecified Status: Chronic Plan: Per pt diagnosed while in shelter and placed on Chlorpromazine 800mg (dose for severe psychosis hospitalization) and zoloft 100mg. - No psychatric meds at this time. It is assumed that anything we start for him here in the hospital will not be continued as an outpatient. - No need for small act or psych consult at this time (5) Nutrition, metabolism, and development symptoms ICD Codes: R63.8 - Other symptoms and signs concerning food and fluid intake Status: Acute Plan: Diet: Regular diet Fluids: Normal saline at 10ml per hour to keep IV established, tolerating PO well Electrolytes: Within normal limits, continue to monitor Prophylaxis: [place], Toradol when necessary for pain; DuoNeb when necessary for shortness of breath/wheezing, Tylenol when necessary for fever, Per-Colace when necessary for constipation, Zofran when necessary for nausea or vomiting, Vistaril as needed for insomnia, Famotidine as needed for reflux (6) No contraindication to deep vein thrombosis (DVT) prophylaxis ICD Codes: Z78.9 - Other specified health status Status: Acute Plan: -SCD/TEDs -Heparin 5000u Q8H for prophylaxis (Isidro Krishna MD R1) Problem Qualifiers (1) Infected puncture wound of hand: Qualified Codes: S61.431D - Puncture wound without foreign body of right hand, subsequent encounter; L08.9 - Local infection of the skin and subcutaneous tissue, unspecified (2) Schizoaffective disorder: Qualified Codes: F25.9 - Schizoaffective disorder, unspecified Isidro Krishna MD R1 May 31, 2017 09:25 Louise Mireles MD May 31, 2017 20:44
[2017-05-31] MEDS: SODIUM CHLOR 0.9% 1000 ML INJ 1,000 ML IV SCH (10:43)
[2017-05-31 12:00] VITALS: BP 128/75; PULSE 78; RESP 16; TEMP 98.4; O2SAT 97
[2017-05-31] MEDS: THIAMINE HCL 100 MG TAB PO SCH (12:07)
[2017-05-31] MEDS: KETOROLAC TROMETHAMINE 10 MG TAB PO PRN (14:15)
[2017-05-31 20:00] VITALS: BP 135/84; PULSE 78; RESP 18; TEMP 98.7; O2SAT 97
[2017-06-01] VITALS: BP 130/68; PULSE 65; RESP 18; TEMP 96.6; O2SAT 97
[2017-06-01] MEDS ORDERED: PHARMACY ORDERED LAB ONE ×2 (05:45→17:45)
[2017-06-01] MEDS: ACETAMINOPHEN/HYDROcodone 325 MG/10 MG TAB PO PRN ×4 (06:28→23:41)
[2017-06-01] MEDS: VANCOMYCIN INJ 1,500 MG in SODIUM CHLORID 0.9% 500 ML INJ 500 ML IV SCH ×2 (06:29→17:52)
[2017-06-01] MEDS: HEPARIN SODIUM - SQ 10,000 UNITS/ML VIAL SQ SCH ×3 (06:29→21:13)
[2017-06-01] MEDS: diphenhydrAMINE HCL 25 MG CAP PO PRN ×2 (06:29→21:16)
[2017-06-01 08:00] VITALS: BP 135/63; PULSE 73; RESP 18; TEMP 97.6; O2SAT 97
[2017-06-01] MEDS: THIAMINE HCL 100 MG TAB PO SCH (08:26)
[2017-06-01] MEDS: SODIUM CHLORIDE 0.9% FLUSH 10 ML FLUSH IV FLUSH SCH ×2 (08:26→21:00)
[2017-06-01] MEDS: KETOROLAC TROMETHAMINE 10 MG TAB PO PRN ×2 (08:29→21:16)
[2017-06-01] MEDS: MUPIROCIN 2% OINT 22 GM TUBE TOPICAL SCH (08:31)
[2017-06-01] MEDS: SODIUM CHLOR 0.9% 1000 ML INJ 1,000 ML IV SCH (10:43)
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
[2017-06-01 12:00] VITALS: BP 140/77; PULSE 82; RESP 19; TEMP 97.6; O2SAT 100
[2017-06-01 16:00] VITALS: BP 146/82; PULSE 79; RESP 17; TEMP 98.7; O2SAT 100
[2017-06-01 20:00] VITALS: BP 153/76; PULSE 72; RESP 18; TEMP 98.5; O2SAT 98
[2017-06-02 00:08] VITALS: BP 129/61; PULSE 89; RESP 18; TEMP 98; O2SAT 96
[2017-06-02] MEDS: diphenhydrAMINE HCL 25 MG CAP PO PRN ×3 (06:18→22:37)
[2017-06-02] MEDS: HEPARIN SODIUM - SQ 10,000 UNITS/ML VIAL SQ SCH ×3 (06:18→19:59)
[2017-06-02] MEDS: ACETAMINOPHEN/HYDROcodone 325 MG/10 MG TAB PO PRN ×4 (06:18→22:35)
[2017-06-02] MEDS: VANCOMYCIN INJ 1,750 MG in SODIUM CHLORID 0.9% 500 ML INJ 500 ML IV SCH ×2 (06:19→18:22)
--- NOTE | 2017-06-02 07:19 | HHI.FPPN ---
Subjective Remarks Mr. Rutledge seen by medicine team on rounds. No acute events overnight, vitals stable. Patient continues to report some soreness, but is able to move his hand better each day. Denies any new swelling, CP, SOB, NVD. (Isidro Krishna MD R1) Objective Vitals Vital Signs Date Time Temp Pulse Resp B/P (MAP) Pulse Ox O2 Delivery O2 Flow Rate FiO2 06/02/17 00:08 98.0 89 18 129/61 (83) 96 06/01/17 20:00 98.5 72 18 153/76 (101) 98 06/01/17 16:00 98.7 79 17 146/82 (103) 100 06/01/17 12:00 97.6 82 19 140/77 (98) 100 06/01/17 08:00 97.6 73 18 135/63 (87) 97 I/O 06/01/17 06/01/17 06/01/17 06/02/17 06/02/17 06/02/17 07:00 15:00 23:00 07:00 15:00 23:00 Intake Total 1085 ml Output Total 900 ml 2000 ml 1900 ml Balance -900 ml -915 ml -1900 ml Intake Oral 1085 ml Output Urine Total 900 ml 2000 ml 1900 ml # Bowel Movements 1 (Isidro Krishna MD R1) Result Diagram: 05/30/17 0635 06/01/17 0601 Objective Remarks GENERAL: Patient laying in bed comfortably. Conversational. NAD SKIN: Warm and dry. HEENT: Atraumatic, normocephalic with EOMI. MMM. No rhinorrhea. No visible LAD or JVD. CARDIOVASCULAR: Regular rate and rhythm without murmurs, gallops, or rubs. RESPIRATORY: Clear to auscultation bilaterally with no CRW. No increased work of breathing. GASTROINTESTINAL: Abdomen soft, non-tender, nondistended with positive bowel sounds. MUSCULOSKELETAL: No cyanosis, or edema. Dressing on wound is clean, dry. Patient able to flex all 5 fingers with minimal pain. - improving. Sensation intact. NEURO/PSYCH: Afocal. AAO 3. Normal speech (Isidro Krishna MD R1) A/P Assessment and Plan Mr. Rutledge is a 37 y/o M with PMHx of schizoaffective disorder that presented with a R hand wound with acute cellulitis. Discharge Planning Plan for discharge is pending completion of IV antibiotics per ID. Would prefer to transfer to [place] if possible. (Isidro Krishna MD R1) Attending Attestation Patient seen, examined, and discussed with Dr. Krishna. I agree with assessment and management as documented and discussed with me. Continue IV antibiotics per ID recs. No new concerns. (Louise Mireles MD) Problem List: (1) Infected puncture wound of hand ICD Codes: S61.439A - Puncture wound without foreign body of unspecified hand, initial encounter; L08.9 - Local infection of the skin and subcutaneous tissue, unspecified Status: Acute Plan: Patient presenting with infected laceration of the right hand meeting sepsis criteria initially, postop day #8 from hand irrigation and exploration in the OR. White count has improved and heart rate is within normal limits -Per discussion with ID, patient will likely need to stay on IV antibiotics for some time with the deepness of the wound/ability to care for wound outside of the hospital - likely at least a week -No IV pain medications - doing well -Tdap received on previous ER visit Medications: -Received clindamycin in ER -Vancomycin 1,750 mg twice a day, pharmacy consulted for dosing -Topical Mupirocin applied to wound daily -[place], Toradol when necessary for pain -Diphenhydramine 25mg Q4H with pain medication PRN for itching (2) Alcohol use ICD Codes: Z78.9 - Other specified health status Status: Acute Plan: Patient with prior history of withdrawal. Pt is off all previous psychiatric medications for past month but states that he feels better. -[facility] protocol discontinued -Thiamine, Multivitamin, and Folic Acid daily (3) Substance abuse ICD Codes: F19.10 - Other psychoactive substance abuse, uncomplicated Status: Chronic Plan: Patient continues to deny any drug use, lived at [facility] for last month. Patient was informed that his UDS was positive UDS: Positive for opiates, positive for cocaine (4) Schizoaffective disorder ICD Codes: F25.9 - Schizoaffective disorder, unspecified Status: Chronic Plan: Per pt diagnosed [facility] in [facility] and placed on Chlorpromazine 800mg (dose for severe psychosis hospitalization) and zoloft 100mg. - No psychatric meds at this time. It is assumed that anything we start for him here in the hospital will not be continued as an outpatient. - No need for small act or psych consult at this time (5) Nutrition, metabolism, and development symptoms ICD Codes: R63.8 - Other symptoms and signs concerning food and fluid intake Status: Acute Plan: Diet: Regular diet Fluids: Normal saline at 10ml per hour to keep IV established, tolerating PO well Electrolytes: Within normal limits, continue to monitor Prophylaxis: [place], Toradol when necessary for pain; DuoNeb when necessary for shortness of breath/wheezing, Tylenol when necessary for fever, Per-Colace when necessary for constipation, Zofran when necessary for nausea or vomiting, Vistaril as needed for insomnia, Famotidine as needed for reflux (6) No contraindication to deep vein thrombosis (DVT) prophylaxis ICD Codes: Z78.9 - Other specified health status Status: Acute Plan: -SCD/TEDs -Heparin 5000u Q8H for prophylaxis (Isidro Krishna MD R1) Problem Qualifiers (1) Infected puncture wound of hand: Qualified Codes: S61.431D - Puncture wound without foreign body of right hand, subsequent encounter; L08.9 - Local infection of the skin and subcutaneous tissue, unspecified (2) Schizoaffective disorder: Qualified Codes: F25.9 - Schizoaffective disorder, unspecified Isidro Krishna MD R1 Jun 02, 2017 07:19 Louise Mireles MD Jun 02, 2017 07:24
[2017-06-02 08:00] VITALS: BP 117/62; PULSE 76; RESP 17; TEMP 97.5; O2SAT 98
[2017-06-02] MEDS: SODIUM CHLORIDE 0.9% FLUSH 10 ML FLUSH IV FLUSH SCH ×2 (09:00→19:59)
[2017-06-02] MEDS: MUPIROCIN 2% OINT 22 GM TUBE TOPICAL SCH (09:00)
[2017-06-02] MEDS: THIAMINE HCL 100 MG TAB PO SCH (09:03)
[2017-06-02] MEDS: KETOROLAC TROMETHAMINE 10 MG TAB PO PRN ×2 (09:12→20:01)
[2017-06-02] MEDS: SODIUM CHLOR 0.9% 1000 ML INJ 1,000 ML IV SCH (10:43)
[2017-06-02 12:00] VITALS: BP 156/84; PULSE 80; RESP 20; TEMP 96.9; O2SAT 100
[2017-06-02 16:00] VITALS: BP 130/72; PULSE 71; RESP 18; TEMP 97.1; O2SAT 99
[2017-06-02 20:00] VITALS: BP 161/74; PULSE 82; RESP 17; TEMP 96.2; O2SAT 100
[2017-06-03] VITALS: BP 137/66; PULSE 87; RESP 17; TEMP 97.5; O2SAT 98
[2017-06-03] MEDS: ACETAMINOPHEN/HYDROcodone 325 MG/10 MG TAB PO PRN ×3 (05:37→21:32)
[2017-06-03] MEDS: HEPARIN SODIUM - SQ 10,000 UNITS/ML VIAL SQ SCH ×3 (05:37→21:33)
[2017-06-03] MEDS: VANCOMYCIN INJ 1,750 MG in SODIUM CHLORID 0.9% 500 ML INJ 500 ML IV SCH ×2 (05:38→17:53)
[2017-06-03] MEDS: SODIUM CHLOR 0.9% 1000 ML INJ 1,000 ML IV SCH (07:48)
[2017-06-03 08:00] VITALS: BP 117/60; PULSE 75; RESP 16; TEMP 97.3; O2SAT 96
[2017-06-03] MEDS: SODIUM CHLORIDE 0.9% FLUSH 10 ML FLUSH IV FLUSH SCH ×2 (08:42→21:00)
[2017-06-03] MEDS: THIAMINE HCL 100 MG TAB PO SCH (08:43)
[2017-06-03] MEDS: MUPIROCIN 2% OINT 22 GM TUBE TOPICAL SCH (08:44)
--- NOTE | 2017-06-03 09:31 | HHI.FPPN ---
Subjective Remarks Pt is doing well this morning except that he still has pain that shoots down his arm from his wound and he would like the Toradol medication renewed. He denies fever or chills and has regular bowel movements. (Sunita Newby MD R2) Objective Vitals Vital Signs Date Time Temp Pulse Resp B/P (MAP) Pulse Ox O2 Delivery O2 Flow Rate FiO2 06/03/17 08:00 97.3 75 16 117/60 (79) 96 06/03/17 00:00 97.5 87 17 137/66 (89) 98 06/02/17 20:00 96.2 82 17 161/74 (103) 100 06/02/17 16:00 97.1 71 18 130/72 (91) 99 06/02/17 12:00 96.9 80 20 156/84 (108) 100 I/O 06/02/17 06/02/17 06/02/17 06/03/17 06/03/17 06/03/17 07:00 15:00 23:00 07:00 15:00 23:00 Intake Total 2900 ml 240 ml Output Total 1900 ml Balance -1900 ml 2900 ml 240 ml Intake Oral 2400 ml 240 ml IV Total 500 ml Output Urine Total 1900 ml # Voids 5 2 # Bowel Movements 1 (EkSunita melgoza MD R2) Result Diagram: 05/30/17 0635 06/03/17 0553 Objective Remarks GENERAL: Patient sitting up, eating breakfast. Conversational. NAD SKIN: Warm and dry. HEENT: Atraumatic, normocephalic with EOMI. MMM. No rhinorrhea. No visible LAD or JVD. CARDIOVASCULAR: Regular rate and rhythm without murmurs, gallops, or rubs. RESPIRATORY: Clear to auscultation bilaterally with no CRW. No increased work of breathing. GASTROINTESTINAL: Abdomen soft, non-tender, nondistended with positive bowel sounds. MUSCULOSKELETAL: No cyanosis, or edema. Dressing on wound is clean, dry. Patient able to flex all 5 fingers with minimal pain. - improving. Sensation intact. NEURO/PSYCH: Afocal. AAO 3. Normal speech (Sunita Newby MD R2) A/P Assessment and Plan Mr. Rutledge is a 37 y/o M with PMHx of schizoaffective disorder that presented with a R hand wound with acute cellulitis. Discharge Planning Plan for discharge is pending completion of IV antibiotics per ID. Has completed 11 days of Vancomycin IV. (Sunita Newby MD R2) Attending Attestation Patient seen and examined, discussed with Dr. Newby. I agree with assessment and management as documented and discussed with me. Pt reports no new concerns. He has completed 5 days of Toradol - will change to Ibuprofen. (Louise Mireles MD) Problem List: (1) Infected puncture wound of hand ICD Codes: S61.439A - Puncture wound without foreign body of unspecified hand, initial encounter; L08.9 - Local infection of the skin and subcutaneous tissue, unspecified Status: Acute Plan: Patient presenting with infected laceration of the right hand meeting sepsis criteria initially, postop day #9 from hand irrigation and exploration in the OR. White count has improved and heart rate is within normal limits -Per discussion with ID, patient will likely need to stay on IV antibiotics for some time with the deepness of the wound/ability to care for wound outside of the hospital - likely at least a week -No IV pain medications - doing well -Tdap received on previous ER visit Medications: -Received clindamycin in ER -Vancomycin 1,750 mg twice a day, pharmacy consulted for dosing - completed 11 days of treatment -Topical Mupirocin applied to wound daily -[place] when necessary for pain, Motrin 600mg Q6hr scheduled -Diphenhydramine 25mg Q4H with pain medication PRN for itching (2) Schizoaffective disorder ICD Codes: F25.9 - Schizoaffective disorder, unspecified Status: Chronic Plan: Per pt, diagnosed while in custodial and placed on Chlorpromazine 800mg (dose for severe psychosis hospitalization) and zoloft 100mg. - No psychatric meds at this time. It is assumed that anything we start for him here in the hospital will not be continued as an outpatient. (3) Nutrition, metabolism, and development symptoms ICD Codes: R63.8 - Other symptoms and signs concerning food and fluid intake Status: Acute Plan: Diet: Regular diet Fluids: Oral fluids only Electrolytes: Within normal limits, continue to monitor Prophylaxis: [place], Toradol when necessary for pain; DuoNeb when necessary for shortness of breath/wheezing, Tylenol when necessary for fever, Per-Colace when necessary for constipation, Zofran when necessary for nausea or vomiting, Vistaril as needed for insomnia, Famotidine as needed for reflux (4) Substance abuse ICD Codes: F19.10 - Other psychoactive substance abuse, uncomplicated Status: Chronic Plan: UDS: Positive for opiates, positive for cocaine (5) Alcohol use ICD Codes: Z78.9 - Other specified health status Status: Acute Plan: Patient with prior history of withdrawal. Pt is off all previous psychiatric medications for past month but states that he feels better. -Thiamine, Multivitamin, and Folic Acid daily (6) No contraindication to deep vein thrombosis (DVT) prophylaxis ICD Codes: Z78.9 - Other specified health status Status: Acute Plan: -SCD/TEDs -Heparin 5000u Q8H for prophylaxis (Sunita Newby MD R2) Problem Qualifiers (1) Infected puncture wound of hand: Qualified Codes: S61.431D - Puncture wound without foreign body of right hand, subsequent encounter; L08.9 - Local infection of the skin and subcutaneous tissue, unspecified (2) Schizoaffective disorder: Qualified Codes: F25.9 - Schizoaffective disorder, unspecified Sunita Newby MD R2 Jun 03, 2017 09:31 Louise Mireles MD Jun 03, 2017 15:14
[2017-06-03] MEDS ORDERED: KETOROLAC TROMETHAMINE 10 MG TAB PO PRN (09:45)
[2017-06-03 12:00] VITALS: BP 143/82; PULSE 74; RESP 18; TEMP 98.5; O2SAT 99
[2017-06-03 16:00] VITALS: BP 136/82; PULSE 79; RESP 18; TEMP 98.4; O2SAT 100
[2017-06-03] MEDS ORDERED: PHARMACY ORDERED LAB ONE (17:45)
[2017-06-03] MEDS: IBUPROFEN 600 MG TAB PO SCH ×2 (17:53→23:59)
[2017-06-03 20:00] VITALS: BP 145/90; PULSE 84; RESP 22; TEMP 97.4; O2SAT 99
[2017-06-04] VITALS: BP 134/92; PULSE 77; RESP 22; TEMP 97.4; O2SAT 99
[2017-06-04] MEDS: ACETAMINOPHEN/HYDROcodone 325 MG/10 MG TAB PO PRN ×4 (04:56→22:07)
[2017-06-04] MEDS: diphenhydrAMINE HCL 25 MG CAP PO PRN ×4 (04:56→22:07)
[2017-06-04] MEDS: VANCOMYCIN INJ 1,750 MG in SODIUM CHLORID 0.9% 500 ML INJ 500 ML IV SCH ×2 (04:56→17:50)
[2017-06-04] MEDS: HEPARIN SODIUM - SQ 10,000 UNITS/ML VIAL SQ SCH ×3 (04:57→20:53)
[2017-06-04] MEDS: IBUPROFEN 600 MG TAB PO SCH (06:09)
[2017-06-04] MEDS: DICLOFENAC SODIUM 50 MG DELAYED RELEASE TAB PO SCH ×3 (08:15→20:52)
[2017-06-04 08:36] VITALS: BP 117/66; PULSE 82; RESP 19; TEMP 96.6; O2SAT 97
[2017-06-04] MEDS: MUPIROCIN 2% OINT 22 GM TUBE TOPICAL SCH (09:00)
[2017-06-04] MEDS: SODIUM CHLORIDE 0.9% FLUSH 10 ML FLUSH IV FLUSH SCH ×2 (09:00→20:56)
[2017-06-04] MEDS: THIAMINE HCL 100 MG TAB PO SCH (09:27)
[2017-06-04] MEDS: SODIUM CHLOR 0.9% 1000 ML INJ 1,000 ML IV SCH (09:27)
--- NOTE | 2017-06-04 10:13 | HHI.FPPN ---
Subjective Remarks Mr. Rutledge was afebrile with stable vital signs overnight. Patient reports that he is doing ok at this time; patient states that he slept well but that he has continued R hand pain. Patient does not report chest pain, shortness of breath, nausea/vomiting abnormal movements, or abnormal urination. (Milton Peterson MD, R3) Objective Vitals Vital Signs Date Time Temp Pulse Resp B/P (MAP) Pulse Ox O2 Delivery O2 Flow Rate FiO2 06/04/17 08:36 96.6 82 19 117/66 (83) 97 06/04/17 00:00 97.4 77 22 134/92 (106) 99 06/03/17 20:00 97.4 84 22 145/90 (108) 99 06/03/17 16:00 98.4 79 18 136/82 (100) 100 06/03/17 12:00 98.5 74 18 143/82 (102) 99 I/O 06/03/17 06/03/17 06/03/17 06/04/17 06/04/17 06/04/17 07:00 15:00 23:00 07:00 15:00 23:00 Intake Total 240 ml 3450 ml 240 ml Output Total 600 ml Balance 240 ml 2850 ml 240 ml Intake Oral 240 ml 3450 ml 240 ml Output Urine Total 600 ml # Voids 2 4 1 # Bowel Movements 1 (Milton Peterson MD, R3) Result Diagram: 06/03/17 0553 Imaging Last Impressions Hand X-Ray 05/23/17 1039 Signed Impressions: Service Date/Time: Tuesday, May 23, 2017 11:06 - CONCLUSION: Negative for foreign body. Pascual Myers MD FACR Chest X-Ray 05/23/17 1039 Signed Impressions: Service Date/Time: Tuesday, May 23, 2017 11:09 - CONCLUSION: Normal examination. Roberto Mancilla Jr., MD Objective Remarks GENERAL: Patient sitting up, eating breakfast. Conversational. NAD SKIN: Warm and dry. CARDIOVASCULAR: Regular rate and rhythm without murmurs. Normal perfusion grossly RESPIRATORY: Clear to auscultation bilaterally; normal rate GASTROINTESTINAL: Abdomen soft, non-tender, nondistended with positive bowel sounds. MUSCULOSKELETAL: No LE edema. Dressing on R hand wound appears dry; not removed for inspection. NEURO/PSYCH: Grossly normal CN; grossly normal motor and sensory function (Milton Peterson MD, R3) A/P Assessment and Plan Mr. Rutledge is a 37 y/o M with PMHx of schizoaffective disorder that presented with a R hand wound with acute cellulitis. Discharge Planning Plan for discharge is pending completion of IV antibiotics per ID. Has completed 12 days of Vancomycin IV. (Milton Peterson MD, R3) Attending Attestation Patient seen and examined, discussed with resident team. I agree with assessment and management as documented and discussed with me. Pt without complaints. He had no pain relief with ibuprofen. Will change to diclofenac. (Louise Mireles MD) Problem List: (1) Infected puncture wound of hand ICD Codes: S61.439A - Puncture wound without foreign body of unspecified hand, initial encounter; L08.9 - Local infection of the skin and subcutaneous tissue, unspecified Status: Acute Plan: Patient presenting with infected laceration of the right hand meeting sepsis criteria initially, postop day #12 from hand irrigation and exploration in the OR. White count has improved and heart rate is within normal limits -Tdap received on previous ER visit Medications: ID consulted: -Per discussion with ID, patient will likely need to stay on IV antibiotics for some time with the deepness of the wound/ability to care for wound outside of the hospital -Vancomycin 1,750 mg twice a day, pharmacy consulted for dosing - completed 12 days of treatment (target 15-20) -Not candidate for Dalvance since deeper -Weekly CBC, CRP, CMP Hand surgery consulted -Encourage elevation, AROM, topical wound care, dressing changes q 2-3 days -Follow-up once safe discharge -Pain control: -[place] 5/325mg when necessary for pain (1 tab PA 1-5) (2 tabs 6-10), Motrin 600mg Q6hr scheduled -Diclofenac 50mg q8hrs started 06/04 -Diphenhydramine 25mg Q4H with pain medication PRN for itching Cultures: Wound culture x3 with MRSA, group A strep (resistant to penicillin, oxacillin, cefazolin, ceftriaxone, erythromycin) Antibiotic History: Clindamycin x1 05/23 Levofloxacin x3 doses (05/23-05/25) (2) Schizoaffective disorder ICD Codes: F25.9 - Schizoaffective disorder, unspecified Status: Chronic Plan: Per pt, diagnosed while in residential and placed on Chlorpromazine 800mg (dose for severe psychosis hospitalization) and zoloft 100mg. - No psychiatric meds at this time. It is assumed that anything we start for him here in the hospital will not be continued as an outpatient. (3) Substance abuse ICD Codes: F19.10 - Other psychoactive substance abuse, uncomplicated Status: Chronic Plan: UDS: Positive for opiates, positive for cocaine -Can consider STD testing while inpatient (4) Alcohol use ICD Codes: Z78.9 - Other specified health status Status: Acute Plan: Patient with prior history of withdrawal. Pt is off all previous psychiatric medications for past month but states that he feels better. -Thiamine, Multivitamin, and Folic Acid daily (5) No contraindication to deep vein thrombosis (DVT) prophylaxis ICD Codes: Z78.9 - Other specified health status Status: Acute Plan: -SCD/TEDs -Heparin 5000u Q8H for prophylaxis (6) Nutrition, metabolism, and development symptoms ICD Codes: R63.8 - Other symptoms and signs concerning food and fluid intake Status: Acute Plan: Diet: Regular diet Fluids: Oral fluids only Electrolytes: Within normal limits, continue to monitor Prophylaxis: [place], Toradol when necessary for pain; DuoNeb when necessary for shortness of breath/wheezing, Tylenol when necessary for fever, Per-Colace when necessary for constipation, Zofran when necessary for nausea or vomiting, Vistaril as needed for insomnia, Famotidine as needed for reflux (Milton Peterson MD, R3) Problem Qualifiers (1) Infected puncture wound of hand: Qualified Codes: S61.431D - Puncture wound without foreign body of right hand, subsequent encounter; L08.9 - Local infection of the skin and subcutaneous tissue, unspecified (2) Schizoaffective disorder: Qualified Codes: F25.9 - Schizoaffective disorder, unspecified Milton Peterson MD, R3 Jun 04, 2017 10:13 Louise Mireles MD Jun 04, 2017 10:25
[2017-06-04 12:00] VITALS: BP 118/66; PULSE 80; RESP 16; TEMP 97.6; O2SAT 98
--- NOTE | 2017-06-04 15:29 | PD.ORT.PN ---
Subjective Subjective Remarks Patient reports pain controlled. Reports decreasing drainage Objective Vitals Vital Signs Date Time Temp Pulse Resp B/P (MAP) Pulse Ox O2 Delivery O2 Flow Rate FiO2 06/04/17 12:00 97.6 80 16 118/66 (83) 98 06/04/17 08:36 96.6 82 19 117/66 (83) 97 06/04/17 00:00 97.4 77 22 134/92 (106) 99 06/03/17 20:00 97.4 84 22 145/90 (108) 99 06/03/17 16:00 98.4 79 18 136/82 (100) 100 I/O 06/03/17 06/03/17 06/03/17 06/04/17 06/04/17 06/04/17 07:00 15:00 23:00 07:00 15:00 23:00 Intake Total 240 ml 3450 ml 240 ml Output Total 600 ml Balance 240 ml 2850 ml 240 ml Intake Oral 240 ml 3450 ml 240 ml Output Urine Total 600 ml # Voids 2 4 1 # Bowel Movements 1 Result Diagram: 06/03/17 0553 Objective Remarks right hand wound with serosanguinous drainage on the dressing right hand with no erythema and full AROM of right thumb and fingers minimal swelling right hand --negligible at this point distal portion of the wound has closed and proximal portion of the wound is granulating and filling in from the base Assessment & Plan Problem List: (1) Infected puncture wound of hand ICD Codes: S61.439A - Puncture wound without foreign body of unspecified hand, initial encounter; L08.9 - Local infection of the skin and subcutaneous tissue, unspecified Status: Acute Qualifiers: Qualified Codes: S61.431D - Puncture wound without foreign body of right hand, subsequent encounter; L08.9 - Local infection of the skin and subcutaneous tissue, unspecified Plan: Continue IV antibiotics and on Vancomycin with ID following--Dr. Prieto has recommended 2 more weeks of Vancomycin Wound right hand cleaned with peroxide and normal saline and redressed with Bactroban ointment and sterile 4x4s, Elizabeth and Addy wrap Encourage elevation and AROM of fingers to help with drainage and edema and to keep motion Dr Baldwin to see patient this week Unable to discharge as he is homeless and antibiotics needed IV When safe discharge, could followup with Dr. Baldwin in the office. Dressing changes every 2-3 days for now with his IV Vancomycin Able to shower with dressing covered (2) Laceration of right hand with infection ICD Codes: S61.411A - Laceration without foreign body of right hand, initial encounter; L08.9 - Local infection of the skin and subcutaneous tissue, unspecified Status: Acute Qualifiers: Qualified Codes: S61.411D - Laceration without foreign body of right hand, subsequent encounter; L08.9 - Local infection of the skin and subcutaneous tissue, unspecified Assessment and Plan see above Marta Mclaughlin MD Jun 04, 2017 15:29
[2017-06-04 16:00] VITALS: BP 116/68; PULSE 76; RESP 14; TEMP 97.4; O2SAT 96
[2017-06-04] MEDS ORDERED: PHARMACY ORDERED LAB ONE (17:45)
[2017-06-04 20:00] VITALS: BP 141/86; PULSE 83; RESP 20; TEMP 96.4; O2SAT 100
[2017-06-05] VITALS: BP 115/71; PULSE 87; RESP 20; TEMP 96.4; O2SAT 97
[2017-06-05] MEDS: DICLOFENAC SODIUM 50 MG DELAYED RELEASE TAB PO SCH ×3 (06:15→22:09)
[2017-06-05] MEDS: VANCOMYCIN INJ 1,750 MG in SODIUM CHLORID 0.9% 500 ML INJ 500 ML IV SCH ×2 (06:15→17:45)
[2017-06-05] MEDS: HEPARIN SODIUM - SQ 10,000 UNITS/ML VIAL SQ SCH ×3 (06:16→22:09)
[2017-06-05] MEDS: ACETAMINOPHEN/HYDROcodone 325 MG/10 MG TAB PO PRN ×3 (07:41→22:11)
[2017-06-05] MEDS: diphenhydrAMINE HCL 25 MG CAP PO PRN ×2 (07:41→22:10)
[2017-06-05 08:00] VITALS: BP 118/66; PULSE 76; RESP 18; TEMP 98.6; O2SAT 97
[2017-06-05] MEDS: THIAMINE HCL 100 MG TAB PO SCH (09:42)
[2017-06-05] MEDS: MUPIROCIN 2% OINT 22 GM TUBE TOPICAL SCH (09:43)
[2017-06-05] MEDS: SODIUM CHLORIDE 0.9% FLUSH 10 ML FLUSH IV FLUSH SCH ×2 (09:43→22:09)
[2017-06-05] MEDS: SODIUM CHLOR 0.9% 1000 ML INJ 1,000 ML IV SCH (10:43)
[2017-06-05 12:00] VITALS: BP 121/67; PULSE 81; RESP 18; TEMP 95.7; O2SAT 98
--- NOTE | 2017-06-05 12:09 | HHI.FPPN ---
Subjective Remarks No acute events overnight. Vital signs unremarkable. This morning patient states that he continues to feel well. Continues to be able to move his right hand without issues. Intermittently has sharp pains but these are not bothersome. Pain is better controlled with diclofenac. Denies any drainage or pus from wound site (Heidi Hoskins MD, R3) Objective Vitals Vital Signs Date Time Temp Pulse Resp B/P (MAP) Pulse Ox O2 Delivery O2 Flow Rate FiO2 06/05/17 09:44 20 06/05/17 08:00 98.6 76 18 118/66 (83) 97 06/05/17 00:00 96.4 87 20 115/71 (86) 97 06/04/17 20:00 96.4 83 20 141/86 (104) 100 06/04/17 16:00 97.4 76 14 116/68 (84) 96 06/04/17 12:00 97.6 80 16 118/66 (83) 98 I/O 06/04/17 06/04/17 06/04/17 06/05/17 06/05/17 06/05/17 07:00 15:00 23:00 07:00 15:00 23:00 Intake Total 240 ml 3040 ml 240 ml 480 ml Output Total 1200 ml 850 ml Balance 240 ml 1840 ml 240 ml -370 ml Intake Oral 240 ml 3040 ml 240 ml 480 ml Output Urine Total 1200 ml 850 ml # Voids 1 5 2 # Bowel Movements 1 1 (Heidi Hoskins MD, R3) Result Diagram: 06/05/17 0355 Objective Remarks GENERAL: Patient up walking around without issues. In no acute distress. SKIN: Wound on right hand is clean and dry. Granulation tissue present. 2 sutures are embedded in the skin. The 2 sutures were removed without issues. Clean dressing was applied after suture removal. CARDIOVASCULAR: Regular rate and rhythm without murmurs. Normal perfusion grossly RESPIRATORY: Clear to auscultation bilaterally; normal rate GASTROINTESTINAL: Abdomen nondistended. MUSCULOSKELETAL: No LE edema. Normal gait NEURO/PSYCH: Grossly normal CN; grossly normal motor and sensory function (Heidi Hoskins MD, R3) A/P Assessment and Plan Mr. Rutledge is a 37 y/o M with PMHx of schizoaffective disorder that was admitted for right hand cellulitis. Discharge Planning Plan for discharge is pending completion of IV antibiotics per ID. Completion date expected to be on 06/11/17. sdw Dr. Krishna and Dr. Mireles ([facility], R[facility]) Attending Attestation Patient seen, examined, and discussed with resident team. I agree with assessment and management as documented and discussed with me. Pt without complaints. He reports diclofenac helps better than ibuprofen. Continue IV antibiotics per ID recs. (Louise Mireles MD) Problem List: (1) Infected puncture wound of hand ICD Codes: S61.439A - Puncture wound without foreign body of unspecified hand, initial encounter; L08.9 - Local infection of the skin and subcutaneous tissue, unspecified Status: Acute Plan: Patient presenting with infected laceration of the right hand meeting sepsis criteria initially, Op date on 05/24/17 s/p hand irrigation. -Tdap received on previous ER visit ID consulted: -Will need prolonged abx. Will need reassessment on 06/11 (will need to call Dr. Cochran back on this date). -Vancomycin 1,750 mg BID (06/02- -Not candidate for Dalvance since deeper -Weekly CBC, CRP, CMP Hand surgery consulted -Encourage elevation, AROM, topical wound care, dressing changes q 2-3 days -Follow-up once safe discharge -Pain control: -[place] -Diclofenac 50mg q8hrs Cultures: Wound culture x3 with MRSA, group A strep (resistant to penicillin, oxacillin, cefazolin, ceftriaxone, erythromycin) Antibiotic History: Clindamycin x1 05/23 Levofloxacin x3 doses (05/23-05/25) (2) Schizoaffective disorder ICD Codes: F25.9 - Schizoaffective disorder, unspecified Status: Chronic Plan: Per pt, diagnosed while in assisted and placed on Chlorpromazine 800mg (dose for severe psychosis hospitalization) and zoloft 100mg. - No psychiatric meds at this time. It is assumed that anything we start for him here in the hospital will not be continued as an outpatient. (3) Substance abuse ICD Codes: F19.10 - Other psychoactive substance abuse, uncomplicated Status: Chronic Plan: UDS: Positive for opiates, positive for cocaine (4) Alcohol use ICD Codes: Z78.9 - Other specified health status Status: Chronic Plan: Patient with prior history of withdrawal. Pt is off all previous psychiatric medications for past month but states that he feels better. -Rally pack (5) No contraindication to deep vein thrombosis (DVT) prophylaxis ICD Codes: Z78.9 - Other specified health status Status: Acute Plan: -SCD/TEDs -Heparin 5000u Q8H for prophylaxis (6) Nutrition, metabolism, and development symptoms ICD Codes: R63.8 - Other symptoms and signs concerning food and fluid intake Status: Acute Plan: Diet: Regular diet Fluids: Oral fluids only Electrolytes: Within normal limits, continue to monitor GI PPX: not indicated (Heidi Hoskins MD, R3) Problem Qualifiers (1) Infected puncture wound of hand: Qualified Codes: S61.431D - Puncture wound without foreign body of right hand, subsequent encounter; L08.9 - Local infection of the skin and subcutaneous tissue, unspecified (2) Schizoaffective disorder: Qualified Codes: F25.9 - Schizoaffective disorder, unspecified Heidi Hoskins MD, R3 Jun 05, 2017 12:09 Louise Mireles MD Jun 05, 2017 14:15
[2017-06-05 16:00] VITALS: BP 121/69; PULSE 82; RESP 18; TEMP 96.4; O2SAT 98
[2017-06-05 20:00] VITALS: BP 156/78; PULSE 81; RESP 20; TEMP 97.5; O2SAT 98
[2017-06-06] VITALS: BP 116/65; PULSE 77; RESP 20; TEMP 97; O2SAT 95
[2017-06-06] MEDS: DICLOFENAC SODIUM 50 MG DELAYED RELEASE TAB PO SCH ×3 (05:41→19:56)
[2017-06-06] MEDS: VANCOMYCIN INJ 1,750 MG in SODIUM CHLORID 0.9% 500 ML INJ 500 ML IV SCH ×2 (05:41→17:34)
[2017-06-06] MEDS: HEPARIN SODIUM - SQ 10,000 UNITS/ML VIAL SQ SCH ×3 (05:42→19:56)
[2017-06-06] MEDS: ACETAMINOPHEN/HYDROcodone 325 MG/10 MG TAB PO PRN ×4 (05:42→19:54)
[2017-06-06 08:00] VITALS: BP 151/63; PULSE 74; RESP 17; TEMP 96.9; O2SAT 97
[2017-06-06 08:08] LABS: AUTOMATED NEUTROPHIL # 6.1 TH/MM3 (1.8-7.7); BASOPHIL # 0.1 TH/MM3 (0-0.2); BASOPHIL % 1.4 % (0.0-2.0); EOSINOPHIL # 0.4 TH/MM3 (0-0.4); EOSINOPHIL % 3.5 % (0.0-4.0); HEMATOCRIT 39.9 % (39.0-51.0); HEMO FLAGS DIFF FINAL; LYMPH % 24.9 % (9.0-44.0); LYMPHOCYTE # 2.5 TH/MM3 (1.0-4.8); MEAN CELL VOLUME 90.2 FL (80.0-100.0); MEAN CORPUSCULAR HEMOGLOBIN 29.6 PG (27.0-34.0); MEAN CORPUSCULAR HGB CONC 32.9 % (32.0-36.0); MONO % 10.7 % (0.0-8.0); NEUT % 59.5 % (16.0-70.0); PLATELET COUNT 349 TH/MM3 (150-450); RED BLOOD COUNT 4.42 MIL/MM3 (4.50-5.90); RED CELL DISTRIBUTION WIDTH 16.1 % (11.6-17.2); WHITE BLOOD COUNT 10.2 TH/MM3 (4.0-11.0)
[2017-06-06 08:36] LABS: ALT (GPT) 96 U/L (12-78); ANION GAP 5 MEQ/L (5-15); AST (GOT) 29 U/L (15-37); BICARBONATE 29.3 MEQ/L (21.0-32.0); BLOOD UREA NITROGEN 11 MG/DL (7-18); CHLORIDE 105 MEQ/L (98-107); GLOMERULAR FILTRATION RATE 86 ML/MIN (>89); POTASSIUM 3.9 MEQ/L (3.5-5.1); SODIUM (NA) 139 MEQ/L (136-145)
[2017-06-06 08:37] LABS: ALKALINE PHOSPHATASE 75 U/L (45-117); TOTAL BILIRUBIN ADULT 0.3 MG/DL (0.2-1.0)
--- NOTE | 2017-06-06 08:51 | HHI.FPPN ---
Subjective Remarks Pt is doing well this morning, no complaints. Just had breakfast which he tolerated well. Has regular BMs. Still having occasional shooting pain down his arm but pain is well-managed on current medication regimen. (Sunita Newby MD R2) Objective Vitals Vital Signs Date Time Temp Pulse Resp B/P (MAP) Pulse Ox O2 Delivery O2 Flow Rate FiO2 06/06/17 08:00 96.9 74 17 151/63 (92) 97 06/06/17 00:00 97.0 77 20 116/65 (82) 95 06/05/17 20:00 97.5 81 20 156/78 (104) 98 06/05/17 16:00 96.4 82 18 121/69 (86) 98 06/05/17 12:00 95.7 81 18 121/67 (85) 98 06/05/17 09:44 20 I/O 06/05/17 06/05/17 06/05/17 06/06/17 06/06/17 06/06/17 07:00 15:00 23:00 07:00 15:00 23:00 Intake Total 240 ml 480 ml 2088 ml 320 ml Output Total 850 ml 1900 ml 600 ml Balance 240 ml -370 ml 188 ml -280 ml Intake Oral 240 ml 480 ml 2088 ml 320 ml Output Urine Total 850 ml 1900 ml 600 ml # Voids 2 # Bowel Movements 1 1 1 (Sunita Newby MD R2) Result Diagram: 06/06/17 0752 06/06/17 0752 Objective Remarks GENERAL: Patient sitting up in bed, very calm, no acute distress. SKIN: Wound on right hand is clean and dry. Clean dressing CARDIOVASCULAR: Regular rate and rhythm without murmurs. Normal perfusion grossly RESPIRATORY: Clear to auscultation bilaterally; normal rate GASTROINTESTINAL: Abdomen nondistended. MUSCULOSKELETAL: No LE edema. Normal gait, normal ROM of fingers of right hand NEURO/PSYCH: Grossly normal CN; grossly normal motor and sensory function (Sunita Newby MD R2) A/P Assessment and Plan Mr. Rutledge is a 37 y/o M with PMHx of schizoaffective disorder that was admitted for right hand cellulitis. Discharge Planning Plan for discharge is pending completion of IV antibiotics per ID. Completion date expected to be on 06/11/17. FLAVIA Mireles (Sunita Newby MD R2) Attending Attestation Patient seen and examined, discussed with Dr. Newby. I agree with assessment and management as documented and discussed with me. Pt without complaints. Continue IV antibiotics. (Louise Mireles MD) Problem List: (1) Infected puncture wound of hand ICD Codes: S61.439A - Puncture wound without foreign body of unspecified hand, initial encounter; L08.9 - Local infection of the skin and subcutaneous tissue, unspecified Status: Acute Plan: Patient presenting with infected laceration of the right hand meeting sepsis criteria initially, Op date on 05/24/17 s/p hand irrigation. -Tdap received on previous ER visit ID consulted: -Will need prolonged abx. Will need reassessment on 06/11 (will need to call Dr. Cochran back on this date). -Vancomycin 1,750 mg BID (06/02- -Weekly CBC, CRP, CMP Hand surgery consulted -Encourage elevation, AROM, topical wound care, dressing changes q 2-3 days -Follow-up once safe discharge -Pain control: -[place] -Diclofenac 50mg q8hrs Cultures: Wound culture x3 with MRSA, group A strep (resistant to penicillin, oxacillin, cefazolin, ceftriaxone, erythromycin) Antibiotic History: Clindamycin x1 05/23 Levofloxacin x3 doses (05/23-05/25) (2) Schizoaffective disorder ICD Codes: F25.9 - Schizoaffective disorder, unspecified Status: Chronic Plan: Per pt, diagnosed while in shelter and placed on Chlorpromazine 800mg (dose for severe psychosis hospitalization) and zoloft 100mg. - No psychiatric meds at this time. (3) No contraindication to deep vein thrombosis (DVT) prophylaxis ICD Codes: Z78.9 - Other specified health status Status: Acute Plan: -Heparin 5000u Q8H for prophylaxis (4) Nutrition, metabolism, and development symptoms ICD Codes: R63.8 - Other symptoms and signs concerning food and fluid intake Status: Acute Plan: Diet: Regular diet Fluids: Oral fluids only Electrolytes: Within normal limits, continue to monitor GI PPX: not indicated (Sunita Newby MD R2) Problem Qualifiers (1) Infected puncture wound of hand: Qualified Codes: S61.431D - Puncture wound without foreign body of right hand, subsequent encounter; L08.9 - Local infection of the skin and subcutaneous tissue, unspecified (2) Schizoaffective disorder: Qualified Codes: F25.9 - Schizoaffective disorder, unspecified Sunita Newby MD R2 Jun 06, 2017 08:51 Louise Mireles MD Jun 06, 2017 21:13
[2017-06-06] MEDS: MUPIROCIN 2% OINT 22 GM TUBE TOPICAL SCH (09:00)
[2017-06-06] MEDS: SODIUM CHLORIDE 0.9% FLUSH 10 ML FLUSH IV FLUSH SCH ×2 (10:06→19:54)
[2017-06-06] MEDS: THIAMINE HCL 100 MG TAB PO SCH (10:06)
[2017-06-06] MEDS: SODIUM CHLOR 0.9% 1000 ML INJ 1,000 ML IV SCH (10:07)
[2017-06-06] MEDS: diphenhydrAMINE HCL 25 MG CAP PO PRN ×2 (10:15→19:53)
[2017-06-06 12:00] VITALS: BP 136/66; PULSE 90; RESP 18; TEMP 96.5; O2SAT 100
[2017-06-06 16:00] VITALS: BP_SYST 105; BP_SYST 111; BP_DIAS 55; BP_DIAS 75; PULSE 76; PULSE 90; RESP 18; RESP 19; TEMP 97.8; TEMP 99.5; O2SAT 92; O2SAT 99
[2017-06-06] MEDS ORDERED: PHARMACY ORDERED LAB ONE (17:45)
[2017-06-06 20:00] VITALS: BP 137/72; PULSE 83; RESP 18; TEMP 98; O2SAT 98
[2017-06-07] VITALS: BP 131/84; PULSE 82; RESP 18; TEMP 97.4; O2SAT 97
[2017-06-07] MEDS: VANCOMYCIN INJ 1,750 MG in SODIUM CHLORID 0.9% 500 ML INJ 500 ML IV SCH ×2 (05:14→17:03)
[2017-06-07] MEDS: HEPARIN SODIUM - SQ 10,000 UNITS/ML VIAL SQ SCH ×3 (05:15→20:50)
[2017-06-07] MEDS: DICLOFENAC SODIUM 50 MG DELAYED RELEASE TAB PO SCH ×3 (05:15→20:50)
[2017-06-07] MEDS: ACETAMINOPHEN/HYDROcodone 325 MG/10 MG TAB PO PRN ×5 (05:16→23:00)
[2017-06-07 08:00] VITALS: BP 113/66; PULSE 95; RESP 20; TEMP 97.9; O2SAT 96
--- NOTE | 2017-06-07 08:52 | HHI.FPPN ---
Subjective Remarks Mr. Rutledge was seen and evaluated on rounds by medicine team today. No acute events overnight, vital signs stable. Patient continues to reports improved ROM , flexibility of R hand. Continues to have occasional nerve-like shooting pain, but otherwise feels great. Denies CP, SOB, NVD. (Isidro Krishna MD R1) Objective Vitals Vital Signs Date Time Temp Pulse Resp B/P (MAP) Pulse Ox O2 Delivery O2 Flow Rate FiO2 06/07/17 08:00 97.9 95 20 113/66 (82) 96 06/07/17 00:00 97.4 82 18 131/84 (100) 97 06/06/17 20:00 98.0 83 18 137/72 (93) 98 06/06/17 16:00 97.8 90 18 111/75 (87) 99 06/06/17 12:00 96.5 90 18 136/66 (89) 100 I/O 06/06/17 06/06/17 06/06/17 06/07/17 06/07/17 06/07/17 07:00 15:00 23:00 07:00 15:00 23:00 Intake Total 320 ml 500 ml 2328 ml 980 ml 620 ml Output Total 600 ml 2200 ml 600 ml Balance -280 ml 500 ml 128 ml 380 ml 620 ml Intake Oral 320 ml 2328 ml 480 ml 120 ml IV Total 500 ml 500 ml 500 ml Output Urine Total 600 ml 2200 ml 600 ml # Bowel Movements 1 2 0 (Isidro Krishna MD R1) Result Diagram: 06/06/17 0752 06/07/17 0441 Objective Remarks GENERAL: Patient sitting up in bed, very calm, no acute distress. SKIN: Wound on right hand is clean and dry, improved from last check 2 days ago. Clean dressing CARDIOVASCULAR: Regular rate and rhythm without murmurs. Normal perfusion grossly RESPIRATORY: Clear to auscultation bilaterally; normal rate GASTROINTESTINAL: Abdomen nondistended. MUSCULOSKELETAL: No LE edema. Normal gait, normal ROM of fingers of right hand , sensation intact. NEURO/PSYCH: Grossly normal CN; grossly normal motor and sensory function (Isidro Krishna MD R1) A/P Assessment and Plan Mr. Rutldege is a 37 y/o M with PMHx of schizoaffective disorder that was admitted for right hand cellulitis. Discharge Planning Plan for discharge is pending completion of IV antibiotics per ID. Completion date expected to be on 06/11/17. FLAVIA Mireles (Isidro Krishna MD R1) Attending Attestation Patient seen, examined, and discussed with Dr. Krishna. I agree with assessment and management as documented and discussed with me. No new concerns. Continue IV antibiotics. (Louise Mireles MD) Problem List: (1) Infected puncture wound of hand ICD Codes: S61.439A - Puncture wound without foreign body of unspecified hand, initial encounter; L08.9 - Local infection of the skin and subcutaneous tissue, unspecified Status: Acute Plan: Patient presenting with infected laceration of the right hand meeting sepsis criteria initially, Op date on 05/24/17 s/p hand irrigation. -Tdap received on previous ER visit ID consulted: -Will need prolonged abx. Will need reassessment on 06/11 (will need to call Dr. Cochran back on this date). -Vancomycin 1,750 mg BID (06/02- -Weekly CBC, CRP, CMP Hand surgery consulted -Encourage elevation, AROM, topical wound care, dressing changes q 2-3 days -Follow-up once safe discharge -Pain control: -[place] -Diclofenac 50mg q8hrs Cultures: Wound culture x3 with MRSA, group A strep (resistant to penicillin, oxacillin, cefazolin, ceftriaxone, erythromycin) Antibiotic History: Clindamycin x1 05/23 Levofloxacin x3 doses (05/23-05/25) (2) Schizoaffective disorder ICD Codes: F25.9 - Schizoaffective disorder, unspecified Status: Chronic Plan: Per pt, diagnosed while in group home and placed on Chlorpromazine 800mg (dose for severe psychosis hospitalization) and zoloft 100mg. - No psychiatric meds at this time. (3) No contraindication to deep vein thrombosis (DVT) prophylaxis ICD Codes: Z78.9 - Other specified health status Status: Acute Plan: -Heparin 5000u Q8H for prophylaxis Caprini score of 3 - continues to be high risk for VTE so will continue anticoagulation while hospitalized (4) Nutrition, metabolism, and development symptoms ICD Codes: R63.8 - Other symptoms and signs concerning food and fluid intake Status: Acute Plan: Diet: Regular diet Fluids: Oral fluids only Electrolytes: Within normal limits, continue to monitor GI PPX: not indicated (Isidro Krishna MD R1) Problem Qualifiers (1) Infected puncture wound of hand: Qualified Codes: S61.431D - Puncture wound without foreign body of right hand, subsequent encounter; L08.9 - Local infection of the skin and subcutaneous tissue, unspecified (2) Schizoaffective disorder: Qualified Codes: F25.9 - Schizoaffective disorder, unspecified Isidro Krishna MD R1 Jun 07, 2017 08:51 Louise Mireles MD Jun 07, 2017 20:34
[2017-06-07] MEDS: SODIUM CHLORIDE 0.9% FLUSH 10 ML FLUSH IV FLUSH SCH ×2 (09:28→20:51)
[2017-06-07] MEDS: MUPIROCIN 2% OINT 22 GM TUBE TOPICAL SCH (09:29)
[2017-06-07] MEDS: THIAMINE HCL 100 MG TAB PO SCH (09:29)
[2017-06-07 12:00] VITALS: BP 156/72; PULSE 87; RESP 20; TEMP 97.8; O2SAT 96
--- NOTE | 2017-06-07 12:09 | HHI.PR ---
Subjective Remarks complains of no pain able to make a fist no fever no tingling or numbness Objective Vital Signs Date Time Temp Pulse Resp B/P (MAP) Pulse Ox O2 Delivery O2 Flow Rate FiO2 06/07/17 08:00 97.9 95 20 113/66 (82) 96 06/07/17 00:00 97.4 82 18 131/84 (100) 97 06/06/17 20:00 98.0 83 18 137/72 (93) 98 06/06/17 16:00 97.8 90 18 111/75 (87) 99 I/O 06/06/17 06/06/17 06/06/17 06/07/17 06/07/17 06/07/17 07:00 15:00 23:00 07:00 15:00 23:00 Intake Total 320 ml 500 ml 2328 ml 980 ml 620 ml Output Total 600 ml 2200 ml 600 ml Balance -280 ml 500 ml 128 ml 380 ml 620 ml Intake Oral 320 ml 2328 ml 480 ml 120 ml IV Total 500 ml 500 ml 500 ml Output Urine Total 600 ml 2200 ml 600 ml # Bowel Movements 1 2 0 examination of the right hand: wound granulating mild surrounding erythema and swelling noted no drainage minimal necrotic tissue able to make a full fist intact sensation distally wbc normal cultures: mrsa Result Diagram: 06/06/17 0752 06/07/17 0441 Assessment and Plan Assessment and Plan 37 year old infected laceration with MRSA right hand s/p drainage, wash and arthrotomy index finger MP joint plan: necrotic tissue removed wound cleaned with hydrogen peroxide dry dressing and cling applied range of motion exercises antibiotics based on ID recommendations follow up in office in one week after discharge will see him over the weekend Adam Chinchilla MD Jun 07, 2017 12:09
[2017-06-07] MEDS: diphenhydrAMINE HCL 25 MG CAP PO PRN (14:01)
[2017-06-07 16:00] VITALS: BP 126/75; PULSE 89; RESP 19; TEMP 97.5; O2SAT 99
[2017-06-07 20:00] VITALS: BP 123/77; PULSE 94; RESP 18; TEMP 97.3; O2SAT 98
[2017-06-08] VITALS: BP 120/75; PULSE 87; RESP 18; TEMP 97.5; O2SAT 98
[2017-06-08] MEDS ORDERED: PHARMACY ORDERED LAB ONE (05:45)
[2017-06-08] MEDS: VANCOMYCIN INJ 1,750 MG in SODIUM CHLORID 0.9% 500 ML INJ 500 ML IV SCH ×3 (06:00→18:22)
[2017-06-08] MEDS: HEPARIN SODIUM - SQ 10,000 UNITS/ML VIAL SQ SCH ×3 (06:00→21:42)
[2017-06-08] MEDS: DICLOFENAC SODIUM 50 MG DELAYED RELEASE TAB PO SCH ×3 (06:00→21:42)
[2017-06-08] MEDS: ACETAMINOPHEN/HYDROcodone 325 MG/10 MG TAB PO PRN ×5 (06:01→21:43)
--- NOTE | 2017-06-08 07:25 | HHI.FPPN ---
Subjective Remarks Mr. Rutledge was seen on rounds this AM. No acute events overnight. Patient reports continued improvement in flexibility/ROM of his R hand. States the hand surgeon came by yesterday and cleaned out the granulation tissue. No complaints of increased pain. Denies CP, SOB, NVD. (Isidro Krishna MD R1) Objective Vitals Vital Signs Date Time Temp Pulse Resp B/P (MAP) Pulse Ox O2 Delivery O2 Flow Rate FiO2 06/08/17 00:00 97.5 87 18 120/75 (90) 98 06/07/17 20:00 97.3 94 18 123/77 (92) 98 06/07/17 16:00 97.5 89 19 126/75 (92) 99 06/07/17 12:00 97.8 87 20 156/72 (100) 96 06/07/17 08:00 97.9 95 20 113/66 (82) 96 I/O 06/07/17 06/07/17 06/07/17 06/08/17 06/08/17 06/08/17 07:00 15:00 23:00 07:00 15:00 23:00 Intake Total 980 ml 620 ml 1700 ml Output Total 600 ml 1800 ml Balance 380 ml 620 ml -100 ml Intake Oral 480 ml 120 ml 1200 ml IV Total 500 ml 500 ml 500 ml Output Urine Total 600 ml 1800 ml # Bowel Movements 0 1 (Isidro Krishna MD R1) Result Diagram: 06/06/17 0752 06/07/17 0441 Objective Remarks GENERAL: Patient sitting up in bed, very calm, no acute distress. SKIN: Clean, dry dressing on right hand. CARDIOVASCULAR: Regular rate and rhythm without murmurs. Normal perfusion grossly RESPIRATORY: Clear to auscultation bilaterally; normal rate GASTROINTESTINAL: Abdomen nondistended, nontender. MUSCULOSKELETAL: No LE edema. Normal ROM of fingers of right hand/wrist, sensation intact. NEURO/PSYCH: Grossly normal CN; grossly normal motor and sensory function (Isidro Krishna MD R1) A/P Assessment and Plan Mr. Rutledge is a 37 y/o M with PMHx of schizoaffective disorder that was admitted for right hand cellulitis. Discharge Planning Plan for discharge is pending completion of IV antibiotics per ID. Completion date expected to be on 06/11/17. FLAVIA Mireles (Isidro Krishna MD R1) Attending Attestation Patient seen and examined, discussed with resident team. I agree with assessment and management as documented and discussed with me. Patient without complaints. Continue IV antibiotics. (Louise Mireles MD) Problem List: (1) Infected puncture wound of hand ICD Codes: S61.439A - Puncture wound without foreign body of unspecified hand, initial encounter; L08.9 - Local infection of the skin and subcutaneous tissue, unspecified Status: Acute Plan: Patient presenting with infected laceration of the right hand meeting sepsis criteria initially, Op date on 05/24/17 s/p hand irrigation. -Tdap received on previous ER visit ID consulted: -Will need prolonged abx. Will need reassessment on 06/11 (will need to call Dr. Cochran back on this date). -Vancomycin 1,750 mg BID (06/02- -Weekly CBC, CRP, CMP Hand surgery consulted -Encourage elevation, AROM, topical wound care, dressing changes q 2-3 days -Follow-up once safe discharge -Pain control: -[place] -Diclofenac 50mg q8hrs Cultures: Wound culture x3 with MRSA, group A strep (resistant to penicillin, oxacillin, cefazolin, ceftriaxone, erythromycin) Antibiotic History: Clindamycin x1 05/23 Levofloxacin x3 doses (05/23-05/25) (2) Schizoaffective disorder ICD Codes: F25.9 - Schizoaffective disorder, unspecified Status: Chronic Plan: Per pt, diagnosed while in residential and placed on Chlorpromazine 800mg (dose for severe psychosis hospitalization) and zoloft 100mg. - No psychiatric meds at this time. (3) No contraindication to deep vein thrombosis (DVT) prophylaxis ICD Codes: Z78.9 - Other specified health status Status: Acute Plan: -Heparin 5000u Q8H for prophylaxis Caprini score of 3 - continues to be high risk for VTE so will continue anticoagulation while hospitalized (4) Nutrition, metabolism, and development symptoms ICD Codes: R63.8 - Other symptoms and signs concerning food and fluid intake Status: Acute Plan: Diet: Regular diet Fluids: Oral fluids only Electrolytes: Within normal limits, continue to monitor GI PPX: not indicated (Isidro Krishna MD R1) Problem Qualifiers (1) Infected puncture wound of hand: Qualified Codes: S61.431D - Puncture wound without foreign body of right hand, subsequent encounter; L08.9 - Local infection of the skin and subcutaneous tissue, unspecified (2) Schizoaffective disorder: Qualified Codes: F25.9 - Schizoaffective disorder, unspecified Isidro Krishna MD R1 Jun 08, 2017 07:25 Louise Mireles MD Jun 08, 2017 21:13
[2017-06-08 08:00] VITALS: BP 103/58; PULSE 75; RESP 18; TEMP 97.3; O2SAT 95
[2017-06-08] MEDS: THIAMINE HCL 100 MG TAB PO SCH (08:34)
[2017-06-08] MEDS: SODIUM CHLORIDE 0.9% FLUSH 10 ML FLUSH IV FLUSH SCH ×2 (08:34→21:43)
[2017-06-08] MEDS: MUPIROCIN 2% OINT 22 GM TUBE TOPICAL SCH (09:00)
[2017-06-08 12:00] VITALS: BP 127/78; PULSE 81; RESP 18; TEMP 97.1; O2SAT 98
[2017-06-08] MEDS: diphenhydrAMINE HCL 25 MG CAP PO PRN ×2 (14:20→21:44)
[2017-06-08 16:00] VITALS: BP 145/81; PULSE 90; RESP 18; TEMP 97.6; O2SAT 98
[2017-06-08 20:00] VITALS: BP 123/71; PULSE 90; RESP 18; TEMP 97.5; O2SAT 99
[2017-06-09] VITALS: BP 115/64; PULSE 84; RESP 18; TEMP 97.1; O2SAT 96
[2017-06-09] MEDS: ACETAMINOPHEN/HYDROcodone 325 MG/10 MG TAB PO PRN ×6 (01:33→21:02)
[2017-06-09] MEDS: DICLOFENAC SODIUM 50 MG DELAYED RELEASE TAB PO SCH ×3 (05:14→21:01)
[2017-06-09] MEDS: VANCOMYCIN INJ 1,750 MG in SODIUM CHLORID 0.9% 500 ML INJ 500 ML IV SCH ×2 (05:15→17:44)
[2017-06-09] MEDS: HEPARIN SODIUM - SQ 10,000 UNITS/ML VIAL SQ SCH ×3 (05:15→21:02)
[2017-06-09 08:00] VITALS: BP 101/56; PULSE 75; RESP 18; TEMP 96.9; O2SAT 97
[2017-06-09] MEDS: SODIUM CHLORIDE 0.9% FLUSH 10 ML FLUSH IV FLUSH SCH ×2 (09:12→21:04)
[2017-06-09] MEDS: THIAMINE HCL 100 MG TAB PO SCH (09:12)
[2017-06-09] MEDS: MUPIROCIN 2% OINT 22 GM TUBE TOPICAL SCH (09:12)
[2017-06-09 12:00] VITALS: BP 125/77; PULSE 91; RESP 18; TEMP 95.9; O2SAT 99
[2017-06-09] MEDS: diphenhydrAMINE HCL 25 MG CAP PO PRN ×2 (13:29→21:01)
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
[2017-06-09] MEDS: CETIRIZINE HCL 10 MG TAB PO PRN (15:04)
[2017-06-09 16:00] VITALS: BP 136/78; PULSE 88; RESP 18; TEMP 97.3; O2SAT 98
[2017-06-09] MEDS: NAPHAZOLINE HCL 0.012% OPHT SOLN 15 ML BOTTLE EACH EYE PRN (18:19)
[2017-06-09 19:41] VITALS: BP 120/86; PULSE 84; RESP 20; TEMP 98.8; O2SAT 98
[2017-06-10 00:36] VITALS: BP 106/56; PULSE 80; RESP 18; TEMP 97.5; O2SAT 96
[2017-06-10] MEDS: diphenhydrAMINE HCL 25 MG CAP PO PRN ×4 (02:48→21:21)
[2017-06-10] MEDS: ACETAMINOPHEN/HYDROcodone 325 MG/10 MG TAB PO PRN ×6 (02:49→21:51)
[2017-06-10] MEDS: HEPARIN SODIUM - SQ 10,000 UNITS/ML VIAL SQ SCH ×3 (06:09→21:21)
[2017-06-10] MEDS: VANCOMYCIN INJ 1,750 MG in SODIUM CHLORID 0.9% 500 ML INJ 500 ML IV SCH ×2 (06:10→17:43)
[2017-06-10] MEDS: DICLOFENAC SODIUM 50 MG DELAYED RELEASE TAB PO SCH ×3 (06:10→21:21)
--- NOTE | 2017-06-10 07:52 | HHI.FPPN ---
Subjective Remarks pt is doing well this morning. He still has minimal pain in his hand but very manageable. he complains of itchy, dry eyes, and itchy, runny nose. he received eyedrops and allergy medicine that helped a bit yesterday. He is still looking for a place to return to when leaves the hospital, but may have found one. (Sunita Newby MD R2) Objective Vitals Vital Signs Date Time Temp Pulse Resp B/P (MAP) Pulse Ox O2 Delivery O2 Flow Rate FiO2 06/10/17 06:40 20 06/10/17 00:36 97.5 80 18 106/56 (73) 96 06/09/17 19:41 98.8 84 20 120/86 (97) 98 06/09/17 16:00 97.3 88 18 136/78 (97) 98 06/09/17 12:00 95.9 91 18 125/77 (93) 99 06/09/17 08:00 96.9 75 18 101/56 (71) 97 I/O 06/09/17 06/09/17 06/09/17 06/10/17 06/10/17 06/10/17 07:00 15:00 23:00 07:00 15:00 23:00 Intake Total 500 ml 500 ml 1866 ml Output Total 1700 ml 1600 ml Balance 500 ml 500 ml 166 ml -1600 ml Intake Oral 1866 ml IV Total 500 ml 500 ml Output Urine Total 1700 ml 1600 ml # Voids 3 # Bowel Movements 1 (EkSunita melgoza MD R2) Result Diagram: 06/06/17 0752 06/09/17 0359 Objective Remarks GENERAL: Patient lying in bed, very calm, no acute distress. SKIN: Clean, dry dressing on right hand. CARDIOVASCULAR: Regular rate and rhythm without murmurs. Normal perfusion grossly RESPIRATORY: Clear to auscultation bilaterally; normal rate GASTROINTESTINAL: Abdomen nondistended, nontender. MUSCULOSKELETAL: No LE edema. Normal ROM of fingers of right hand/wrist, sensation intact. NEURO/PSYCH: Grossly normal CN; grossly normal motor and sensory function (Sunita Newby MD R2) A/P Assessment and Plan Mr. Rutledge is a 37 y/o M with PMHx of schizoaffective disorder that was admitted for right hand cellulitis. Discharge Planning Plan for discharge is pending completion of IV antibiotics per ID. Completion date expected to be on 06/11/17. CM consulted to assist pt with finding housing on d/c. DW Dr. Mireles (Sunita Newby MD R2) Attending Attestation Patient seen and examined, discussed with Dr. Newby. I agree with assessment and management as documented and discussed with me. Pt complains of allergy symptoms - medicines have been ordered. Continue IV antibiotics. Possible discharge tomorrow, pending re-evaluation by ID. (Louise Mireles MD) Problem List: (1) Infected puncture wound of hand ICD Codes: S61.439A - Puncture wound without foreign body of unspecified hand, initial encounter; L08.9 - Local infection of the skin and subcutaneous tissue, unspecified Status: Acute Plan: Patient presenting with infected laceration of the right hand meeting sepsis criteria initially, Op date on 05/24/17 s/p hand irrigation. -Tdap received on previous ER visit ID consulted: -Will need prolonged abx. Will need reassessment on 06/11 (will need to call Dr. Cochran back on this date). -Vancomycin 1,750 mg BID (06/02- -Weekly CBC, CRP, CMP -Ordered CBC, CRP, ESR, and CMP for 06/11 Hand surgery consulted -Encourage elevation, AROM, topical wound care, dressing changes q 2-3 days -Follow-up once safe discharge -Pain control: -[place] -Diclofenac 50mg q8hrs Cultures: Wound culture x3 with MRSA, group A strep (resistant to penicillin, oxacillin, cefazolin, ceftriaxone, erythromycin) Antibiotic History: Clindamycin x1 05/23 Levofloxacin x3 doses (05/23-05/25) (2) Schizoaffective disorder ICD Codes: F25.9 - Schizoaffective disorder, unspecified Status: Chronic Plan: Per pt, diagnosed while in retirement and placed on Chlorpromazine 800mg (dose for severe psychosis hospitalization) and zoloft 100mg. - No psychiatric meds at this time. (3) No contraindication to deep vein thrombosis (DVT) prophylaxis ICD Codes: Z78.9 - Other specified health status Status: Acute Plan: -Heparin 5000u Q8H for prophylaxis Caprini score of 3 - continues to be high risk for VTE so will continue anticoagulation while hospitalized (4) Allergic rhinitis ICD Codes: J30.9 - Allergic rhinitis, unspecified Plan: -Continue eye drops and Zyrtec. Add flonase (5) Nutrition, metabolism, and development symptoms ICD Codes: R63.8 - Other symptoms and signs concerning food and fluid intake Status: Acute Plan: Diet: Regular diet Fluids: Oral fluids only Electrolytes: Within normal limits, continue to monitor GI PPX: not indicated (Sunita Newby MD R2) Problem Qualifiers (1) Infected puncture wound of hand: Qualified Codes: S61.431D - Puncture wound without foreign body of right hand, subsequent encounter; L08.9 - Local infection of the skin and subcutaneous tissue, unspecified (2) Schizoaffective disorder: Qualified Codes: F25.9 - Schizoaffective disorder, unspecified (3) Allergic rhinitis: Qualified Codes: J30.9 - Allergic rhinitis, unspecified Sunita Newby MD R2 Jun 10, 2017 07:52 Louise Mireles MD Jun 10, 2017 11:31
[2017-06-10 08:00] VITALS: BP 99/52; PULSE 78; RESP 16; TEMP 96.5; O2SAT 98
[2017-06-10] MEDS: THIAMINE HCL 100 MG TAB PO SCH (08:25)
[2017-06-10] MEDS: NAPHAZOLINE HCL 0.012% OPHT SOLN 15 ML BOTTLE EACH EYE PRN ×2 (08:26→13:58)
[2017-06-10] MEDS: MUPIROCIN 2% OINT 22 GM TUBE TOPICAL SCH (08:26)
[2017-06-10] MEDS: SODIUM CHLORIDE 0.9% FLUSH 10 ML FLUSH IV FLUSH SCH ×2 (08:26→21:00)
[2017-06-10] MEDS: FLUTICASONE PROPIONATE 50 MCG/ACT 16 GM NASAL SPRAY EACH NARE SCH (10:10)
[2017-06-10 12:00] VITALS: BP 129/79; PULSE 82; RESP 16; TEMP 98; O2SAT 99
[2017-06-10 16:00] VITALS: BP 134/77; PULSE 76; RESP 18; TEMP 97; O2SAT 99
[2017-06-10] MEDS: CETIRIZINE HCL 10 MG TAB PO PRN (17:43)
[2017-06-10 19:46] VITALS: BP 135/82; PULSE 92; RESP 20; TEMP 96; O2SAT 98
[2017-06-11] VITALS: BP 112/58; PULSE 77; RESP 16; TEMP 97.5; O2SAT 96
[2017-06-11] MEDS: diphenhydrAMINE HCL 25 MG CAP PO PRN ×2 (02:05→19:08)
[2017-06-11] MEDS: ACETAMINOPHEN/HYDROcodone 325 MG/10 MG TAB PO PRN ×6 (02:05→22:16)
[2017-06-11] MEDS: VANCOMYCIN INJ 1,750 MG in SODIUM CHLORID 0.9% 500 ML INJ 500 ML IV SCH ×2 (05:44→18:25)
[2017-06-11] MEDS: CETIRIZINE HCL 10 MG TAB PO PRN (05:44)
[2017-06-11] MEDS: HEPARIN SODIUM - SQ 10,000 UNITS/ML VIAL SQ SCH ×3 (05:45→22:16)
[2017-06-11] MEDS: DICLOFENAC SODIUM 50 MG DELAYED RELEASE TAB PO SCH ×3 (05:51→22:16)
[2017-06-11 06:17] LABS: WESTERGREN SEDIMENTATION RATE 7 mm/hr (0-15)
[2017-06-11 06:32] LABS: ALKALINE PHOSPHATASE 100 U/L (45-117); ALT (GPT) 96 U/L (12-78); TOTAL BILIRUBIN ADULT 0.3 MG/DL (0.2-1.0)
[2017-06-11 06:34] LABS: ANION GAP 6 MEQ/L (5-15); AST (GOT) 42 U/L (15-37); BICARBONATE 27.1 MEQ/L (21.0-32.0); BLOOD UREA NITROGEN 16 MG/DL (7-18); CHLORIDE 103 MEQ/L (98-107); GLOMERULAR FILTRATION RATE 95 ML/MIN (>89); POTASSIUM 4.2 MEQ/L (3.5-5.1); SODIUM (NA) 136 MEQ/L (136-145)
[2017-06-11 06:56] LABS: AUTOMATED NEUTROPHIL # 3.3 TH/MM3 (1.8-7.7); BASOPHIL # 0.1 TH/MM3 (0-0.2); BASOPHIL % 1.4 % (0.0-2.0); EOSINOPHIL # 0.6 TH/MM3 (0-0.4); EOSINOPHIL % 6.6 % (0.0-4.0); HEMATOCRIT 40.9 % (39.0-51.0); HEMO FLAGS DIFF FINAL; LYMPH % 35.4 % (9.0-44.0); MEAN CELL VOLUME 91.1 FL (80.0-100.0); MEAN CORPUSCULAR HEMOGLOBIN 30.1 PG (27.0-34.0); MONO % 16.7 % (0.0-8.0); NEUT % 39.9 % (16.0-70.0); PLATELET COUNT 373 TH/MM3 (150-450); RED CELL DISTRIBUTION WIDTH 16.3 % (11.6-17.2); WHITE BLOOD COUNT 8.4 TH/MM3 (4.0-11.0)
[2017-06-11 08:00] VITALS: BP 128/82; PULSE 93; RESP 16; TEMP 96.8; O2SAT 98
--- NOTE | 2017-06-11 08:21 | HHI.FPPN ---
Subjective Remarks Mr. Rutledge was seen today on rounds by medicine team. No acute events overnight, vitals were stable. Patient states his hand is doing well today. He is working on living arrangements after discharge. Denies CP, SOB, NVD. (Isidro Krishna MD R1) Objective Vitals Vital Signs Date Time Temp Pulse Resp B/P (MAP) Pulse Ox O2 Delivery O2 Flow Rate FiO2 06/11/17 00:00 97.5 77 16 112/58 (76) 96 06/10/17 19:46 96.0 92 20 135/82 (99) 98 06/10/17 16:00 97.0 76 18 134/77 (96) 99 06/10/17 12:00 98.0 82 16 129/79 (96) 99 I/O 06/10/17 06/10/17 06/10/17 06/11/17 06/11/17 06/11/17 07:00 15:00 23:00 07:00 15:00 23:00 Intake Total 520 ml 1700 ml Output Total 1600 ml 2100 ml 1200 ml Balance -1600 ml 520 ml -400 ml -1200 ml Intake Oral 1200 ml IV Total 520 ml 500 ml Output Urine Total 1600 ml 2100 ml 1200 ml # Voids 1 # Bowel Movements 1 1 (Isidro Krishna MD R1) Result Diagram: 06/11/17 0432 06/11/17 043 Objective Remarks GENERAL: Patient lying in bed, very calm, no acute distress. SKIN: Clean, dry dressing on right hand. CARDIOVASCULAR: Regular rate and rhythm without murmurs. Normal perfusion grossly RESPIRATORY: Clear to auscultation bilaterally; normal rate GASTROINTESTINAL: Abdomen nondistended, nontender. MUSCULOSKELETAL: No LE edema. Normal ROM of fingers of right hand/wrist, sensation intact. NEURO/PSYCH: Grossly normal CN; grossly normal motor and sensory function (Isidro Krishna MD R1) A/P Assessment and Plan Mr. Rutledge is a 37 y/o M with PMHx of schizoaffective disorder that was admitted for right hand cellulitis. Discharge Planning Plan for discharge is pending completion of IV antibiotics per ID. Completion date expected to be on 06/11/17. CM consulted to assist pt with finding housing on d/c. ID to see him later today and will follow recs (Isidro Krishna MD R1) Attending Attestation Patient seen and examined, discussed with resident team. I agree with assessment and management as documented and discussed with me. Pt without new concerns. Anticipate discharge pending ID re-evaluation. Appreciate case management. (Louise Mireles MD) Problem List: (1) Infected puncture wound of hand ICD Codes: S61.439A - Puncture wound without foreign body of unspecified hand, initial encounter; L08.9 - Local infection of the skin and subcutaneous tissue, unspecified Status: Acute Plan: Patient presenting with infected laceration of the right hand meeting sepsis criteria initially, Op date on 05/24/17 s/p hand irrigation. -Tdap received on previous ER visit ID consulted: -Will need prolonged abx. Will need reassessment on 06/11 (will need to call Dr. Cochran back on this date). -Vancomycin 1,750 mg BID (06/02- -Labs this AM are reassuring from infectious standpoint Hand surgery consulted -Encourage elevation, AROM, topical wound care, dressing changes q 2-3 days -Follow-up once safe discharge -Pain control: -[place] -Diclofenac 50mg q8hrs Cultures: Wound culture x3 with MRSA, group A strep (resistant to penicillin, oxacillin, cefazolin, ceftriaxone, erythromycin) Antibiotic History: Clindamycin x1 05/23 Levofloxacin x3 doses (05/23-05/25) (2) Elevated LFTs ICD Codes: R79.89 - Other specified abnormal findings of blood chemistry Status: Acute Plan: Elevated LFT's today - AST 42, ALT 96. -AST, ALT wnl on admission - Patient had acetaminophen extensively during hospital stay (norco q4hr PRN) - CMP ordered for 2 weeks after discharge for PCP to follow (3) Schizoaffective disorder ICD Codes: F25.9 - Schizoaffective disorder, unspecified Status: Chronic Plan: Per pt, diagnosed while in [facility] and placed on Chlorpromazine 800mg (dose for severe psychosis hospitalization) and zoloft 100mg. - No psychiatric meds at this time. (4) No contraindication to deep vein thrombosis (DVT) prophylaxis ICD Codes: Z78.9 - Other specified health status Status: Acute Plan: -Heparin 5000u Q8H for prophylaxis Caprini score of 3 - continues to be high risk for VTE so will continue anticoagulation while hospitalized (5) Allergic rhinitis ICD Codes: J30.9 - Allergic rhinitis, unspecified Plan: -Continue eye drops and Zyrtec. Add flonase (6) Nutrition, metabolism, and development symptoms ICD Codes: R63.8 - Other symptoms and signs concerning food and fluid intake Status: Acute Plan: Diet: Regular diet Fluids: Oral fluids only Electrolytes: Within normal limits, continue to monitor GI PPX: not indicated (Isidro Krishna MD R1) Problem Qualifiers (1) Infected puncture wound of hand: Qualified Codes: S61.431D - Puncture wound without foreign body of right hand, subsequent encounter; L08.9 - Local infection of the skin and subcutaneous tissue, unspecified (2) Schizoaffective disorder: Qualified Codes: F25.9 - Schizoaffective disorder, unspecified (3) Allergic rhinitis: Qualified Codes: J30.9 - Allergic rhinitis, unspecified Isidro Krishna MD R1 Jun 11, 2017 08:21 Louise Mireles MD Jun 11, 2017 20:30
[2017-06-11] MEDS ORDERED: FAMOTIDINE 20 MG TAB PO SCH (10:15)
[2017-06-11] MEDS: THIAMINE HCL 100 MG TAB PO SCH (10:20)
[2017-06-11] MEDS: FLUTICASONE PROPIONATE 50 MCG/ACT 16 GM NASAL SPRAY EACH NARE SCH (10:21)
[2017-06-11] MEDS: MUPIROCIN 2% OINT 22 GM TUBE TOPICAL SCH (10:21)
[2017-06-11] MEDS: NAPHAZOLINE HCL 0.012% OPHT SOLN 15 ML BOTTLE EACH EYE PRN (10:21)
[2017-06-11] MEDS: SODIUM CHLORIDE 0.9% FLUSH 10 ML FLUSH IV FLUSH SCH ×2 (10:22→19:51)
[2017-06-11 12:00] VITALS: BP 101/67; PULSE 84; RESP 16; TEMP 97.2; O2SAT 98
[2017-06-11] MEDS ORDERED: CALAMINE/PRAMOXINE LOTION 180 ML BTL TOPICAL PRN (14:15)
[2017-06-11 16:00] VITALS: BP 151/76; PULSE 92; RESP 18; TEMP 96.8; O2SAT 97
[2017-06-11] MEDS ORDERED: SOLU250I IV PUSH (17:44)
[2017-06-11] MEDS ORDERED: EPIN1INJ21 IV PUSH (17:44)
[2017-06-11] MEDS ORDERED: DALB1SOL IV (17:44)
[2017-06-11] MEDS ORDERED: EPIN1INJ21 SQ (17:44)
[2017-06-11] MEDS ORDERED: CLIN1CAP6 PO (17:45)
--- NOTE | 2017-06-11 17:58 | HHI.FF ---
Infusion Therapy Location of Infusion Therapy: Ambulatory Infusion Therapy Order Patient Information Appointment Date: Jun 11, 2017 Patient Weight 95.1 kg Diagnosis: Diagnosis MRSA and Strep hand infection Cellulitis/abscess s/p drainage. Possible tenosynovitis. Coded Allergies: amoxicillin (Unverified Allergy, Severe, Anaphylaxis, 05/23/17) PT states he has an anaphylactic rx when taking amoxicillin. bee venom protein (honey bee) (Unverified Allergy, Severe, 05/23/17) penicillin G (Unverified Allergy, Intermediate, 05/23/17) Administer Medication Dalvance 1500 mg IV x 1 dose only on 06/12/2017 Start Treatment: Jun 12, 2017 Stop Treatment: Jun 12, 2017 Additional Information Venous access: Other (Use Peripheral IV line.) Additional Instructions [x] Peripheral flush and dressing changes per protocol [x] Implanted port and central aniline press worker: * Implanted port: 10 ml Normal Saline followed by 5 ml Heparin 100 units/ml Heparin flush after each use and monthly to maintain. [] May leave port accessed during therapy. [] May leave peripheral site accessed for duration of therapy. [x] If patient has SOB or respiratory distress, check oxygen saturation. If less than 90% or clinical signs of respiratory distress, administer oxygen at 2 L/min. via nasal cannula and notify physician. [x] Anaphylaxis/Reaction orders: * Stop infusion. * Keep IV line open with saline flush. * Notify physician. * Monitor vital signs every 15 minutes until symptoms resolve. * Check Oxygen saturation; Oxygen at 2 L/min. via nasal cannula if less than 90% or clinical signs of respiratory distress. * Administer diphenhydramine (Benadryl) 25 mg IV STAT, (unless patient has received as pre-med). May repeat once, if necessary. * Solu-Cortef 250 mg IVP over 30-60 seconds, use 100 mg vials for each dissolution. * Epinephrine (1mg/1 ml) 0.3 mg subcutaneously or IVP now with any signs of respiratory distress. * Check with physician for new additional pre-med orders if patient is re- challenged or re-treated. [x] May remove PICC line when treatment complete, after confirming with Physician. [x] If the patient is admitted to the hospital, the ED, or transferred via [facility] , complete transfer form including medication reconciliation order sheet. Laboratory Tests Additional Information Call with change in clinical condition or problems to: or covering ID Physician Follow up appt: Patient to schedule follow up appt with Dr. Chinchilla 2 weeks post discharge. Follow up with PCP Follow up with other MDs as planned. Counseling: Counseled about medication side effects Counseled about PICC line care and hand hygiene. Cindy Prieto MD Jun 11, 2017 17:58
--- NOTE | 2017-06-11 18:03 | HHI.IDPN ---
Subjective Subjective Remarks Mr. Rutledge is a 37 y/o M with PMHx of schizoaffective disorder presenting with a R hand wound. He was seen in the ED 4 days ago with a superficial laceration of the R hand at the second MTP joint extending down the dorsal aspect of the R hand approximately 3 cm in length. The laceration was closed with 6 interrupted sutures, and he was discharged home. Over the past 3 days his hand has had worsening erythema, edema and has started to have purulent discharge. He also endorses 2 days of anorexia and vomiting with subjective fevers, chills, shortness of breath, and productive cough with yellow sputum. He also has been unable to flex his first 2 fingers since the laceration was sutured. Currently his pain is 9/10 and is sharp in nature radiating up to his mid forearm. ID consulted for evaluation and Mment of right hand abscess possible Tenosynovitis. Overnight events reviewed. No fever No rash No diarrhea Cleared by hand surgery for discharge. Informs me his mom will put him in a motel. Antibiotics Vanco IV Lines Line sites with no e.o infection Past Medical History reviewed Allergies: Coded Allergies: amoxicillin (Unverified Allergy, Severe, Anaphylaxis, 05/23/17) PT states he has an anaphylactic rx when taking amoxicillin. bee venom protein (honey bee) (Unverified Allergy, Severe, 05/23/17) penicillin G (Unverified Allergy, Intermediate, 05/23/17) Objective . Vital Signs Date Time Temp Pulse Resp B/P (MAP) Pulse Ox O2 Delivery O2 Flow Rate FiO2 06/11/17 16:00 96.8 92 18 151/76 (101) 97 06/11/17 12:00 97.2 84 16 101/67 (78) 98 06/11/17 08:00 96.8 93 16 128/82 (97) 98 06/11/17 00:00 97.5 77 16 112/58 (76) 96 06/10/17 19:46 96.0 92 20 135/82 (99) 98 . Laboratory Tests Test 06/11/17 04:32 White Blood Count 8.4 TH/MM3 Red Blood Count 4.50 MIL/MM3 Hemoglobin 13.5 GM/DL Hematocrit 40.9 % Mean Corpuscular Volume 91.1 FL Mean Corpuscular Hemoglobin 30.1 PG Mean Corpuscular Hemoglobin Concent 33.0 % Red Cell Distribution Width 16.3 % Platelet Count 373 TH/MM3 Mean Platelet Volume 8.7 FL Neutrophils (%) (Auto) 39.9 % Lymphocytes (%) (Auto) 35.4 % Monocytes (%) (Auto) 16.7 % Eosinophils (%) (Auto) 6.6 % Basophils (%) (Auto) 1.4 % Neutrophils # (Auto) 3.3 TH/MM3 Lymphocytes # (Auto) 3.0 TH/MM3 Monocytes # (Auto) 1.4 TH/MM3 Eosinophils # (Auto) 0.6 TH/MM3 Basophils # (Auto) 0.1 TH/MM3 CBC Comment DIFF FINAL Differential Comment Erythrocyte Sedimentation Rate 7 mm/hr Laboratory Tests Test 06/11/17 04:32 Blood Urea Nitrogen 16 MG/DL Creatinine 0.89 MG/DL Random Glucose 86 MG/DL Total Protein 7.1 GM/DL Albumin 3.5 GM/DL Calcium Level 9.5 MG/DL Alkaline Phosphatase 100 U/L Aspartate Amino Transf (AST/SGOT) 42 U/L Alanine Aminotransferase (ALT/SGPT) 96 U/L Total Bilirubin 0.3 MG/DL Sodium Level 136 MEQ/L Potassium Level 4.2 MEQ/L Chloride Level 103 MEQ/L Carbon Dioxide Level 27.1 MEQ/L Anion Gap 6 MEQ/L Estimat Glomerular Filtration Rate 95 ML/MIN C-Reactive Protein 0.73 MG/DL Imaging Last Impressions Hand X-Ray 05/23/17 1039 Signed Impressions: Service Date/Time: Tuesday, May 23, 2017 11:06 - CONCLUSION: Negative for foreign body. Pascual Myers MD FACR Chest X-Ray 05/23/17 1039 Signed Impressions: Service Date/Time: Tuesday, May 23, 2017 11:09 - CONCLUSION: Normal examination. Roberto Mancilla Jr., MD Physical Exam GENERAL: This is a well-nourished, well-developed patient, in no apparent distress. SKIN: No rashes, ecchymoses or lesions. Cool and dry. HEAD: Atraumatic. Normocephalic. No temporal or scalp tenderness. EYES: Pupils equal round and reactive. Extraocular motions intact. No scleral icterus. No injection or drainage. ENT: Nose without bleeding, purulent drainage or septal hematoma. Throat without erythema, tonsillar hypertrophy or exudate. Uvula midline. Airway patent. NECK: Trachea midline. Supple, nontender, no meningeal signs. CARDIOVASCULAR: Regular rate and rhythm without murmurs, gallops, or rubs. RESPIRATORY: Clear to auscultation. Breath sounds equal bilaterally. No wheezes , rales, or rhonchi. GASTROINTESTINAL: Abdomen soft, non-tender, nondistended. MUSCULOSKELETAL: Right hand infection site examined with mild induration noted and mild erythema. Overall 90% better compared to admission. yangw who agrees as well. NEUROLOGICAL: Awake and alert. Grossly non focal Psych cooperative IV line sites with no e/o infection Assessment & Plan Remarks Right hand cellulitis/abscess Right hand tenosynovitis. MRSA and Strep infection Homelessness Recs Vanco IV last dose tonight. Start Clindamycin oral (will need assistance: rn case mgr notified) Dalvance one time dose infusion in [facility] tomorrow. Orders completed. Script for additional Clinda in chart. Dalvance patient assistance form not needed for this patient. Patient will need wound care clinic appt set up for post discharge. Will sign off please call back if any change in clinical condition or questions. Cindy Prieto MD Jun 11, 2017 18:03
[2017-06-11] MEDS: CLINDAMYCIN 150 MG CAP PO SCH ×2 (18:25→23:41)
[2017-06-11] MEDS: ONDANSETRON HCL 4 MG/2 ML VIAL IVP PRN (19:50)
[2017-06-11 20:00] VITALS: BP 119/85; PULSE 82; RESP 17; TEMP 98.5; O2SAT 99
--- NOTE | 2017-06-11 20:39 | HHI.DCPOC ---
Discharge Care Plan Diagnosis: (1) Laceration of right hand with infection (2) MRSA abscess hand (3) Elevated LFTs (4) Substance abuse (5) Schizoaffective disorder Goals to Promote Your Health * To prevent worsening of your condition and complications * To maintain your health at the optimal level Directions to Meet Your Goals Take your medications as prescribed Follow your dietary instruction Follow activity as directed Keep your appointments as scheduled Take your immunizations and boosters as scheduled If your symptoms worsen call your PCP, if no PCP go to Urgent Care Center or Emergency Room Smoking is Dangerous to Your Health. Avoid second hand smoke Call the 24-hour hour crisis hotline for domestic abuse at Sunita Newby MD R2 Jun 11, 2017 20:39
[2017-06-12] VITALS: BP 116/81; PULSE 77; RESP 17; TEMP 98; O2SAT 98
[2017-06-12] MEDS ORDERED: PHARMACY ORDERED LAB ONE (05:45)
[2017-06-12] MEDS: CLINDAMYCIN 150 MG CAP PO SCH ×2 (06:08→11:48)
[2017-06-12] MEDS: HEPARIN SODIUM - SQ 10,000 UNITS/ML VIAL SQ SCH (06:08)
[2017-06-12] MEDS: DICLOFENAC SODIUM 50 MG DELAYED RELEASE TAB PO SCH (06:08)
[2017-06-12] MEDS: ACETAMINOPHEN/HYDROcodone 325 MG/10 MG TAB PO PRN ×2 (06:12→11:09)
[2017-06-12] MEDS ORDERED: HYDR-3516 PO (06:54)
[2017-06-12] MEDS ORDERED: DICL50TA3 PO (06:54)
[2017-06-12 08:00] VITALS: BP 119/69; PULSE 73; RESP 16; TEMP 97.2; O2SAT 97
[2017-06-12 09:00] VITALS: BP 146/71; PULSE 83; RESP 16; TEMP 95.8; O2SAT 100
[2017-06-12] MEDS: FLUTICASONE PROPIONATE 50 MCG/ACT 16 GM NASAL SPRAY EACH NARE SCH (09:00)
--- NOTE | 2017-06-12 09:21 | HHI.DS ---
Discharge Summary Admission Date May 23, 2017 at 13:00 Discharge Date: Jun 12, 2017 Admitting Diagnosis sepsis/hand cellulitis/wound infection (1) Infected puncture wound of hand Diagnosis: Principal ICD Codes: S61.439A - Puncture wound without foreign body of unspecified hand, initial encounter; L08.9 - Local infection of the skin and subcutaneous tissue, unspecified Status: Acute (2) Schizoaffective disorder Diagnosis: Secondary Plan: ICD Codes: F25.9 - Schizoaffective disorder, unspecified Status: Chronic Brief History Mr. Rutledge is a 37 y/o M with PMHx of schizoaffective disorder presented with a R hand wound. He was seen in the ED 4 days prior to admission with a superficial laceration of the R hand at the second MTP joint extending down the dorsal aspect of the R hand approximately 3 cm in length. The laceration was closed with 6 interrupted sutures, and he was discharged home. 3 days prior to admission his hand had worsening erythema, edema and started to have purulent discharge. He endorsed 2 days of anorexia and vomiting with subjective fevers, chills, shortness of breath, and productive cough with yellow sputum. He had been unable to flex his first 2 fingers since the laceration was sutured. His pain was 9/10 and was sharp in nature radiating up to his mid forearm. He was admitted for worsening cellulitis/abscess CBC/BMP: 06/11/17 0432 06/11/17 0432 Significant Findings Laboratory Tests Test 06/11/17 04:32 Monocytes (%) (Auto) 16.7 % (0.0-8.0) Eosinophils (%) (Auto) 6.6 % (0.0-4.0) Monocytes # (Auto) 1.4 TH/MM3 (0-0.9) Eosinophils # (Auto) 0.6 TH/MM3 (0-0.4) Aspartate Amino Transf (AST/SGOT) 42 U/L (15-37) Alanine Aminotransferase (ALT/SGPT) 96 U/L (12-78) C-Reactive Protein 0.73 MG/DL (0.00-0.30) PE at Discharge GENERAL: Patient lying in bed, very calm, no acute distress. SKIN: Clean, dry dressing on right hand. CARDIOVASCULAR: Regular rate and rhythm without murmurs. Normal perfusion grossly RESPIRATORY: Clear to auscultation bilaterally; normal rate GASTROINTESTINAL: Abdomen nondistended, nontender. MUSCULOSKELETAL: No LE edema. Normal ROM of fingers of right hand/wrist, sensation intact. Wound on right hand is clean/dry, no discharge or bleeding noted. Healing well. NEURO/PSYCH: Grossly normal CN; grossly normal motor and sensory function Hospital Course Patient presented with infected laceration of the right hand meeting sepsis criteria, On 05/24/17 patient had R hand irrigation. Patient was treated with clindamycin x 1 in the ED and Levofloxacin x 3 doses. Wound culture x3 with MRSA , group A strep (resistant to penicillin, oxacillin, cefazolin, ceftriaxone, erythromycin). Infectious disease was consulted and recommended IV Vancomycin for 2 weeks as an inpatient since there was a concern for patient's potential to manage/keep the wound clean at home. Patient's pain was well controlled on [place] and diclofenac, and patient's hand continued to heal during the 2 weeks of IV antibiotics. On 06/12 patient was cleared by ID to go home. He was scheduled to receive Dalvance infusion on that day and prescribed Clindamycin to complete as outpatient. Patient was found to have elevated AST, ALT on day of discharge and orders were placed to have CMP labs drawn in 2 weeks and to follow up with a PCP. Patient and team felt patient was safe for discharge. Pt Condition on Discharge: Stable Discharge Disposition: Discharge Home Discharge Instructions DIET: Follow Instructions for: As Tolerated, No Restrictions Activities you can perform: Regular-No Restrictions Follow up Referrals: Appointment for Follow Up @ with Appointment for Follow Up - 2 Weeks with Adam Chinchilla MD PCP Follow-up - 2 Weeks New Orders: COMP MET PROF (CMP) - 2 Weeks New Medications: Clindamycin (Clindamycin) 300 Mg Cap 600 MG PO Q8H for MRSA hand infection for 28 Days, #168 CAP 0 Refills Dalbavancin Inj (Dalvance Inj) 500 Mg Vial 1500 MG IV ONCE PRN for One time only for 1 Day, #1 BAG 0 Refills Initial dose of two-dose regimen Epinephrine Inj (Epinephrine Inj) 1 Mg/Ml (1 Ml) Inj 0.3 MG IV PUSH ONCE PRN for ALLERGIC REACTION, #1 VIAL Epinephrine Inj (Epinephrine Inj) 1 Mg/Ml (1 Ml) Inj 0.3 MG SQ ONCE PRN for ALLERGIC REACTION, #1 VIAL Give with any signs of respiratory distress. Hydrocortisone Inj (Solu-Cortef Inj) 250 Mg/2 Ml Inj 250 MG IV PUSH ONCE PRN for ALLERGIC REACTION, #1 VIAL 0 Refills Give over 30-[address] Sodium DR (Diclofenac Sodium DR) 50 Mg Tabdr 50 MG PO Q8HR, #30 TAB Hydrocodone-Acetaminophen (Hydrocodone-Acetaminophen) 5-325 mg Tab 1 TAB PO Q4H PRN for PAIN SCALE 1 TO 5, #10 TAB Isidro Krishna MD R1 Jun 12, 2017 09:21
[2017-06-12] MEDS: THIAMINE HCL 100 MG TAB PO SCH (11:07)
[2017-06-12] MEDS: SODIUM CHLORIDE 0.9% FLUSH 10 ML FLUSH IV FLUSH SCH (11:10)
[2017-06-12 11:30] VITALS: BP 142/81; PULSE 81; RESP 16; TEMP 96.7; O2SAT 98
--- NOTE | 2017-06-12 11:48 | HHI.FPPN ---
Subjective Remarks Mr. Rutledge was seen on rounds this AM. No acute events overnight, vitals stable. Patient has plans to stay in motel after discharge. Denies CP, NVD. Hand continues to improve (Isidro Krishna MD R1) Objective Vitals Vital Signs Date Time Temp Pulse Resp B/P (MAP) Pulse Ox O2 Delivery O2 Flow Rate FiO2 06/12/17 11:30 96.7 81 16 142/81 (101) 98 06/12/17 09:00 95.8 83 16 146/71 (96) 100 06/12/17 08:00 97.2 73 16 119/69 (86) 97 06/12/17 00:00 98.0 77 17 116/81 (93) 98 06/11/17 20:00 98.5 82 17 119/85 (96) 99 06/11/17 16:00 96.8 92 18 151/76 (101) 97 06/11/17 12:00 97.2 84 16 101/67 (78) 98 I/O 06/11/17 06/11/17 06/11/17 06/12/17 06/12/17 06/12/17 07:00 15:00 23:00 07:00 15:00 23:00 Intake Total 2400 ml 240 ml Output Total 1200 ml 1200 ml Balance -1200 ml 1200 ml 240 ml Intake Oral 2400 ml 240 ml Output Urine Total 1200 ml 1200 ml # Voids 1 # Bowel Movements 1 1 (Isidro Krishna MD R1) Result Diagram: 06/11/17 0432 06/11/17 0432 Objective Remarks GENERAL: Patient walking around room, very calm, no acute distress. SKIN: Clean, dry dressing on right hand. CARDIOVASCULAR: Regular rate and rhythm without murmurs. Normal perfusion grossly RESPIRATORY: Clear to auscultation bilaterally; normal rate GASTROINTESTINAL: Abdomen nondistended, nontender. MUSCULOSKELETAL: No LE edema. Normal ROM of fingers of right hand/wrist, sensation intact. NEURO/PSYCH: Grossly normal CN; grossly normal motor and sensory function (Isidro Krishna MD R1) A/P Assessment and Plan Mr. Rutledge is a 37 y/o M with PMHx of schizoaffective disorder that was admitted for right hand cellulitis. Discharge Planning Discharge today, will receive Dalvance infusion today in the infusion clinic then finish oral course of Clindamycin as outpatient. (Isidro Krishna MD R1) Attending Attestation Patient seen and examined, discussed with resident team. I agree with assessment and management as documented and discussed with me. Appreciate ID, who has made antibiotic recommendations after he has completed 2 weeks of IV vancomycin. Discharge home today. (Louise Mireles MD) Problem List: (1) Infected puncture wound of hand ICD Codes: S61.439A - Puncture wound without foreign body of unspecified hand, initial encounter; L08.9 - Local infection of the skin and subcutaneous tissue, unspecified Status: Acute Plan: Patient presenting with infected laceration of the right hand meeting sepsis criteria initially, Op date on 05/24/17 s/p hand irrigation. -Tdap received on previous ER visit ID consulted: -Will need prolonged abx. Will need reassessment on 06/11 (will need to call Dr. Cochran back on this date). -Vancomycin 1,750 mg BID (06/02-) -Dalvance infusion today in the infusion clinic then finish oral course of Clindamycin as outpatient. Hand surgery consulted -Encourage elevation, AROM, topical wound care, dressing changes q 2-3 days -Follow-up once safe discharge -Pain control: -[place] 5mg - will be sent home with 10 doses -Diclofenac 50mg q8hrs Cultures: Wound culture x3 with MRSA, group A strep (resistant to penicillin, oxacillin, cefazolin, ceftriaxone, erythromycin) Antibiotic History: Clindamycin x1 05/23 Levofloxacin x3 doses (05/23-05/25) (2) Elevated LFTs ICD Codes: R79.89 - Other specified abnormal findings of blood chemistry Status: Acute Plan: Elevated LFT's in 06/11 - AST 42, ALT 96. -AST, ALT wnl on admission - Patient had acetaminophen extensively during hospital stay (norco q4hr PRN) - CMP ordered for 2 weeks after discharge for PCP to follow (3) Schizoaffective disorder ICD Codes: F25.9 - Schizoaffective disorder, unspecified Status: Chronic Plan: Per pt, diagnosed while in long-term and placed on Chlorpromazine 800mg (dose for severe psychosis hospitalization) and zoloft 100mg. - No psychiatric meds at this time. (4) No contraindication to deep vein thrombosis (DVT) prophylaxis ICD Codes: Z78.9 - Other specified health status Status: Acute Plan: -Heparin 5000u Q8H for prophylaxis Caprini score of 3 - continues to be high risk for VTE so will continue anticoagulation while hospitalized (5) Allergic rhinitis ICD Codes: J30.9 - Allergic rhinitis, unspecified Plan: -Continue eye drops and Zyrtec. Add flonase (6) Nutrition, metabolism, and development symptoms ICD Codes: R63.8 - Other symptoms and signs concerning food and fluid intake Status: Acute Plan: Diet: Regular diet Fluids: Oral fluids only Electrolytes: Within normal limits, continue to monitor GI PPX: not indicated (Isidro Krishna MD R1) Problem Qualifiers (1) Infected puncture wound of hand: Qualified Codes: S61.431D - Puncture wound without foreign body of right hand, subsequent encounter; L08.9 - Local infection of the skin and subcutaneous tissue, unspecified (2) Schizoaffective disorder: Qualified Codes: F25.9 - Schizoaffective disorder, unspecified (3) Allergic rhinitis: Qualified Codes: J30.9 - Allergic rhinitis, unspecified Isidro Krishna MD R1 Jun 12, 2017 11:48 Louise Mireles MD Jun 13, 2017 20:40
[2017-06-12] MEDS ORDERED: ACETAMINOPHEN 1000 MG/100 ML VIAL IV ONE (12:00)
== END 2017-06-12 12:05 | disposition home or self-care (01) | DRG 854 ==
LOC: NEPE 09:55 → NEDA 13:00 → N07A 14:56
PROVIDERS: ADMIT Family Medicine; ATTEND Family Medicine
PROC: 3E10X8X Irrigation of Skin and Mucous Membranes using Irrigating Substance, Diagnostic (ICD-10-PCS; principal; 2017-05-23)
PROC: 0JBJ0ZZ Excision of Right Hand Subcutaneous Tissue and Fascia, Open Approach (ICD-10-PCS; 2017-05-24)
PROC: 0R9U0ZZ Drainage of Right Metacarpophalangeal Joint, Open Approach (ICD-10-PCS; 2017-05-24)
DX: A41.9 Sepsis, unspecified organism (principal); L03.113 Cellulitis of right upper limb; J44.1 Chronic obstructive pulmonary disease with (acute) exacerbation; L02.511 Cutaneous abscess of right hand; F25.9 Schizoaffective disorder, unspecified; R63.0 Anorexia; R11.10 Vomiting, unspecified; Z59.0 Homelessness; F17.210 Nicotine dependence, cigarettes, uncomplicated; S61.411D Laceration without foreign body of right hand, subsequent encounter; W26.0XXD Contact with knife, subsequent encounter; Z80.0 Family history of malignant neoplasm of digestive organs; F19.10 Other psychoactive substance abuse, uncomplicated; Z23 Encounter for immunization; B95.62 Methicillin resistant Staphylococcus aureus infection as the cause of diseases classified elsewhere; B95.0 Streptococcus, group A, as the cause of diseases classified elsewhere; Z16.11 Resistance to penicillins
CPT/HCPCS: 71010; 73120; 76937; 80048; 80053; 80202; 80307; 82565; 82948; 83605; 85025; 85027; 85652; 86140; 86403; 87015; 87040; 87070; 87102; 87116; 87147; 87186; 87205; 87206; 90732; 94150; 94640; 94664; 96365; J0131; J1170; J1644; J1885; J1956; J2175; J2250; J2270; J2405; J2710; J3010; J3370; J7030; J7040; J7120; Q0163

== ENCOUNTER 2017-07-03 12:06 | Emergency (ER) | payer SELFPAY ==
[~2017-07-03] VITALS: Ht 188 cm; Wt 100.0 kg
[~2017-07-03 12:06] MED LIST changes: -CETI-1 PO; +CLIN1CAP6 PO; -EPIP0.3I IM; -PRED20 PO; -ZANT300T PO; -ZOLO100T PO
[2017-07-03 12:07] VITALS: BP 181/89; PULSE 110; RESP 22; TEMP 97.9; O2SAT 97
--- NOTE | 2017-07-03 12:12 | PD ---
Physical Exam Date Seen by Provider: Jul 03, 2017 Time Seen by Provider: 12:11 Narrative 37 yo male here for evaluation of possible infection right hand. Was recently admitted per patient for about a month for similar. Same area. No IV drug use per patient. Infected area noted on the dorsal right hand above the first metacarpal. pain is 6/10. Vitals are stable in triage except for tachycardia. Awaiting bed placement. Data Data Last Documented VS Vital Signs Date Time Temp Pulse Resp B/P (MAP) Pulse Ox O2 Delivery O2 Flow Rate FiO2 07/03/17 12:07 97.9 110 22 181/89 (119) 97 Room Air [facility] Medical Record Reviewed: Yes Supervised Visit with BRENT: No Bill Panda Jul 03, 2017 12:12
--- NOTE | 2017-07-03 13:01 | RADRPT ---
EXAM DATE/TIME: 07/03/2017 12:34 [facility] COMPARISON: HAND RIGHT LIMITED (2VWS), May 23, 2017, 11:06. INDICATIONS : Right hand pain, laceration. MEDICAL HISTORY : None. SURGICAL HISTORY : None. ENCOUNTER: Initial ACUITY: 2 weeks PAIN SCORE: 8/10 LOCATION: Right hand, 2nd digit FINDINGS: Soft tissue swelling is noted across the dorsum of the hand overlying the metacarpal phalangeal joint s. There is no evidence of radiopaque foreign body. Bony structures are intact without evidence of fr acture or dislocation. CONCLUSION: Soft tissue swelling without evidence of acute bony abnormality. No evidence of radiopaque foreign body. Kenneth Rodriguez MD on July 03, 2017 at 12:58 Board Certified Radiologist. This report was verified electronically.
[2017-07-03] MEDS ORDERED: VANCOMYCIN INJ 1,000 MG in SODIUM CHLOR 0.9% 250 ML INJ 250 ML IV ONE (14:00)
[2017-07-03] MEDS ORDERED: DOXY100C PO (14:02)
[2017-07-03] MEDS ORDERED: BACT800T5 PO (14:02)
--- NOTE | 2017-07-03 14:10 | PD ---
HPI Chief Complaint: Skin Problem Time Seen by Provider: 13:54 Travel History International Travel<30 days: No Contact w/Intl Traveler<30days: No Traveled to known affect area: No History of Present Illness HPI This patient comes to the ER for evaluation of hand infection. Patient was hospitalized in April 2017 for the same infection. Culture grew MRSA. He reports that the hand got better but 3 days ago started to become red and swollen in the same area. No injury. He is not febrile. Severity is moderate. No alleviating factors. No Exacerbating factors. He denies ever having IV drug abuse. PFSH Past Medical History Hx Anticoagulant Therapy: No Depression: Yes Cancer: No Cardiovascular Problems: No Chemotherapy: No Cerebrovascular Accident: No Diabetes: No Diminished Hearing: No Endocrine: No Genitourinary: No Immune Disorder: No Musculoskeletal: No Neurologic: No Psychiatric: No Reproductive: No Respiratory: No Schizophrenia: Yes (SCHIZO AFFECTIVE) ?: Not Past Surgical History Abdominal Surgery: No Cardiac Surgery: No Endocrine Surgery: No Eye Surgery: No Genitourinary Surgery: No Gynecologic Surgery: No Oral Surgery: No Thoracic Surgery: No Other Surgery: Yes Social History Alcohol Use: Yes (Ocassionally) Tobacco Use: Yes (1/2 pack a day ) Substance Use: No Allergies-Medications (Allergen,Severity, Reaction): Coded Allergies: amoxicillin (Verified Allergy, Severe, Anaphylaxis, 07/03/17) PT states he has an anaphylactic rx when taking amoxicillin. bee venom protein (honey bee) (Verified Allergy, Severe, 07/03/17) penicillin G (Verified Allergy, Intermediate, 07/03/17) Reported Meds & Prescriptions Reported Meds & Active Scripts Active Doxycycline Hyclate 100 Mg Cap 100 Mg PO BID Bactrim DS (Sulfamethoxazole-Trimethoprim) 800-160 Mg Tab 1 Tab PO BID Review of Systems General / Constitutional: No: Fever Eyes: No: Visual changes HENT: No: Headaches Cardiovascular: No: Chest Pain or Discomfort Respiratory: No: Shortness of Breath Gastrointestinal: No: Abdominal Pain Genitourinary: No: Dysuria Musculoskeletal: Positive: Edema, Pain Skin: No Rash Neurologic: No: Weakness Psychiatric: No: Depression Endocrine: No: Polydipsia Hematologic/Lymphatic: No: Easy Bruising Physical Exam Narrative GENERAL: Well-nourished, well-developed patient in no apparent distress. SKIN: Focused skin assessment reveals no rash and nodules. Skin is Warm and dry. HEAD: Atraumatic. Normocephalic. EYES: Pupils equal and round. No scleral icterus. No injection or drainage. ENT: No nasal bleeding or discharge. Mucous membranes pink and moist. NECK: Trachea midline. No JVD. CARDIOVASCULAR: Regular rate and rhythm. No murmur appreciated. RESPIRATORY: No accessory muscle use. Clear to auscultation. Breath sounds equal bilaterally. GASTROINTESTINAL: Abdomen soft, non-tender, nondistended. Hepatic and splenic margins not palpable. MUSCULOSKELETAL: Patient has an area of redness and swelling near the right second MCP joint. Has good flexion and extension of that joint. No fluctuance or active drainage. There is a linear scabbed/scarred area over top of the redness. No clubbing. No cyanosis. No edema. No ascending lymphangitis or cellulitis of the hand or arm or any involvement of the fingers. NEUROLOGICAL: Awake and alert. No obvious cranial nerve deficits. Motor grossly within normal limits. Normal speech. PSYCHIATRIC: Appropriate mood and affect; insight and judgment normal. Data Data Last Documented VS Vital Signs Date Time Temp Pulse Resp B/P (MAP) Pulse Ox O2 Delivery O2 Flow Rate FiO2 07/03/17 16:00 07/03/17 12:07 97.9 110 22 97 Room Air Orders Orders Complete Blood Count With Diff (07/03/17 12:12) Basic Metabolic Panel (Bmp) (07/03/17 12:12) Hand, Limited (2vws) (07/03/17 ) Vancomycin Inj (Vancomycin Inj) (07/03/17 14:00) Iv Access Insert/Monitor (07/03/17 13:59) Oxycodone-Acetamin 5-325 Mg (Percocet (07/03/17 14:15) Labs Laboratory Tests Test 07/03/17 14:10 White Blood Count 11.6 TH/MM3 Red Blood Count 4.89 MIL/MM3 Hemoglobin 14.8 GM/DL Hematocrit 44.7 % Mean Corpuscular Volume 91.4 FL Mean Corpuscular Hemoglobin 30.3 PG Mean Corpuscular Hemoglobin Concent 33.2 % Red Cell Distribution Width 16.7 % Platelet Count 276 TH/MM3 Mean Platelet Volume 7.7 FL Neutrophils (%) (Auto) 71.1 % Lymphocytes (%) (Auto) 15.7 % Monocytes (%) (Auto) 11.0 % Eosinophils (%) (Auto) 1.5 % Basophils (%) (Auto) 0.7 % Neutrophils # (Auto) 8.3 TH/MM3 Lymphocytes # (Auto) 1.8 TH/MM3 Monocytes # (Auto) 1.3 TH/MM3 Eosinophils # (Auto) 0.2 TH/MM3 Basophils # (Auto) 0.1 TH/MM3 CBC Comment DIFF FINAL Differential Comment Blood Urea Nitrogen 6 MG/DL Creatinine 0.95 MG/DL Random Glucose 89 MG/DL Calcium Level 9.6 MG/DL Sodium Level 135 MEQ/L Potassium Level 4.4 MEQ/L Chloride Level 102 MEQ/L Carbon Dioxide Level 24.8 MEQ/L Anion Gap 8 MEQ/L Estimat Glomerular Filtration Rate 88 ML/MIN MDM Medical Decision Making Medical Screen Exam Complete: Yes Emergency Medical Condition: Yes Medical Record Reviewed: Yes Differential Diagnosis Recurrent cellulitis, abscess, tenosynovitis Narrative Course I have reviewed the patient's electronic medical record. I reviewed his discharge summary. This is from his most recent stay for this same infection. Culture results of been reviewed as well. IV placed I gave him 1 g IV vancomycin CBC does not show significant leukocytosis Metabolic profile is normal Patient's infection is a very discrete small area of the right hand near the right second MCP joint. Infection at this point seems superficial and not in the joint based on good passive and active flexion and extension without symptoms. There is no fluctuance or drainage and nothing to culture at this point. 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 He never saw the hand surgeon since he left the hospital He will come back on for repeat check if he cannot get into the hand physician in one to 2 days Diagnosis Primary Impression: Infection of right hand Additional Impression: Schizoaffective disorder Qualified Codes: F25.0 - Schizoaffective disorder, bipolar type Additional Instructions: Start antibiotics and take them faithfully Follow-up with hand physician If you cannot get seen by the hand physician in one to 2 days get a recheck here on Med/Other Pt SpecificInfo: Prescription(s) given Scripts Doxycycline Hyclate (Doxycycline Hyclate) 100 Mg Cap 100 MG PO BID for Infection, #20 CAP 0 Refills Prov: Lopez Betts MD 07/03/17 Sulfamethoxazole-Trimethoprim (Bactrim DS) 800-160 Mg Tab 1 TAB PO BID for Infection, #20 TAB 0 Refills Prov: Lopez Betts MD 07/03/17 Disposition: 01 DISCHARGE HOME Condition: Stable Lopez Betts MD Jul 03, 2017 14:10
[2017-07-03] MEDS ORDERED: oxyCODONE/ACETAMINOPHEN 5 MG/325 MG TAB PO ONE (14:15)
[2017-07-03 14:27] LABS: AUTOMATED NEUTROPHIL # 8.3 TH/MM3 (1.8-7.7); BASOPHIL # 0.1 TH/MM3 (0-0.2); BASOPHIL % 0.7 % (0.0-2.0); EOSINOPHIL # 0.2 TH/MM3 (0-0.4); EOSINOPHIL % 1.5 % (0.0-4.0); HEMATOCRIT 44.7 % (39.0-51.0); HEMO FLAGS DIFF FINAL; LYMPH % 15.7 % (9.0-44.0); LYMPHOCYTE # 1.8 TH/MM3 (1.0-4.8); MEAN CELL VOLUME 91.4 FL (80.0-100.0); MEAN CORPUSCULAR HEMOGLOBIN 30.3 PG (27.0-34.0); MEAN CORPUSCULAR HGB CONC 33.2 % (32.0-36.0); NEUT % 71.1 % (16.0-70.0); PLATELET COUNT 276 TH/MM3 (150-450); RED BLOOD COUNT 4.89 MIL/MM3 (4.50-5.90); RED CELL DISTRIBUTION WIDTH 16.7 % (11.6-17.2); WHITE BLOOD COUNT 11.6 TH/MM3 (4.0-11.0)
[2017-07-03 14:43] LABS: BICARBONATE 24.8 MEQ/L (21.0-32.0); POTASSIUM 4.4 MEQ/L (3.5-5.1)
== END 2017-07-03 16:26 | disposition home or self-care (01) ==
LOC: NEPD 12:06
DX: S61.411D Laceration without foreign body of right hand, subsequent encounter (principal); F25.0 Schizoaffective disorder, bipolar type; F17.210 Nicotine dependence, cigarettes, uncomplicated; W45.8XXD Other foreign body or object entering through skin, subsequent encounter
CPT/HCPCS: 73120; 80048; 85025; 96365; 99284; J3370; J7050